=== PATIENT | female | born 1970 | race Caucasian/White ===

== ENCOUNTER 2017-04-11 05:32 | Inpatient (IN) | payer MEDICARE, MEDICAID ==
[2017-04-11] MEDS ORDERED: Scopolamine 1.5 MG Transdermal Patch TOP SCH (06:00)
[2017-04-11] MEDS ORDERED: Albuterol/Ipratropium 3.0-0.5 MG/3 ML Neb Soln NEB ONE (06:15)
[2017-04-11] MEDS: Dextrose 5%-Lactated Ringers 1,000 ML IV SCH ×4 (06:24→23:36)
[2017-04-11] MEDS ORDERED: methylPREDNISolone Sodium Succinate 125 MG/2 ML SDV IVPUSH ONE (06:30)
[2017-04-11] MEDS ORDERED: ceFAZolin 2 GM in Premix Bag 1 BAG IV ONE (06:30)
[2017-04-11] MEDS ORDERED: Gabapentin 300 MG Cap PO ONE (06:30)
[2017-04-11] MEDS ORDERED: Dexamethasone 4 MG/ML SDV ONE (07:02)
[2017-04-11] MEDS ORDERED: Propofol 200 MG/20 ML SDV ONE (07:02)
[2017-04-11] MEDS ORDERED: Midazolam 1 MG/ML 2 ML SDV ONE (07:02)
[2017-04-11] MEDS ORDERED: Ondansetron 4 MG/2 ML SDV ONE (07:02)
[2017-04-11] MEDS ORDERED: Succinylcholine/Normal Saline 200 MG/10 ML Syringe ONE (07:02)
[2017-04-11] MEDS ORDERED: Rocuronium 50 MG/5 ML Vial ONE (07:02)
[2017-04-11] MEDS ORDERED: fentaNYL 250 MCG/5 ML SDV ONE ×2 (07:02→08:19)
[2017-04-11] MEDS ORDERED: Neostigmine Methylsulfate 1 MG/ML 5 ML Syringe ONE (07:02)
[2017-04-11] MEDS ORDERED: Povidone-Iodine 10% Soln 118.25 ML Bottle ONE (07:09)
[2017-04-11] MEDS ORDERED: Lidocaine 1% 2 ML ONE (07:44)
[2017-04-11] MEDS ORDERED: HYDROmorphone/Normal Saline 15 MG/30 ML PCA IV PRN (07:52)
[2017-04-11] MEDS ORDERED: Naloxone 0.4 MG/ML SDV IVPUSH PRN (07:52)
[2017-04-11] MEDS ORDERED: Naloxone 0.4 MG/ML SDV IV PRN (07:56)
[2017-04-11] MEDS ORDERED: Labetalol 20 MG/4 ML Syringe ONE (08:18)
[2017-04-11] MEDS ORDERED: Albuterol 8 GM Inhaler INH PRN (11:07)
[2017-04-11] MEDS ORDERED: Ondansetron 4 MG/2 ML SDV IVPUSH PRN (11:07)
[2017-04-11] MEDS ORDERED: LORazepam 0.5 MG Tab PO PRN (11:08)
[2017-04-11] MEDS ORDERED: tiZANidine 4 MG Tab PO PRN (11:09)
[2017-04-11] MEDS: FLUoxetine 20 MG Cap PO SCH (13:40)
[2017-04-11] MEDS: Metoclopramide 10 MG/2 ML SDV IVPUSH SCH ×2 (13:40→21:49)
[2017-04-11] MEDS: methylPREDNISolone Sodium Succinate 125 MG/2 ML SDV IVPUSH SCH (17:01)
[2017-04-11] MEDS: Gabapentin 300 MG Cap PO SCH ×2 (17:55→21:47)
[2017-04-12] MEDS: methylPREDNISolone Sodium Succinate 125 MG/2 ML SDV IVPUSH SCH (05:31)
[2017-04-12] MEDS: Gabapentin 300 MG Cap PO SCH ×5 (05:31→21:24)
[2017-04-12] MEDS: Metoclopramide 10 MG/2 ML SDV IVPUSH SCH ×3 (05:31→21:24)
[2017-04-12] MEDS: Pantoprazole 40 MG Vial IVPUSH SCH (05:31)
[2017-04-12] MEDS: Dextrose 5%-Lactated Ringers 1,000 ML IV SCH (06:14)
[2017-04-12] MEDS ORDERED: HYDROmorphone 2 MG Tab PO PRN (08:44)
[2017-04-12] MEDS ORDERED: Ondansetron 4 MG Tab.DIS PO PRN (08:45)
[2017-04-12] MEDS ORDERED: Acetaminophen Soln 650 MG/20.3 ML UD Cup PO PRN (08:45)
[2017-04-12] MEDS: FLUoxetine 20 MG Cap PO SCH (09:05)
[2017-04-12] MEDS ORDERED: Dextrose 5%-Lactated Ringers 1,000 ML IV SCH (12:00)
--- NOTE | 2017-04-12 20:30 | PN ---
DATE OF SERVICE: 04/12/2017 SUBJECTIVE: Irasema is postop day 1 following a lap Samson. Her pain is controlled. She has been up walking twice. Vital signs were stable. She has no questions or concerns. OBJECTIVE: GENERAL: Irasema Landaverde is a 46-year-old female. VITAL SIGNS: TPR is 98.7, 75, 16, blood pressure 125/59. HEENT: Negative. NECK: Supple. HEART: Regular rate and rhythm. LUNGS: Clear. ABDOMEN: Dressings dry and intact. Abdominal binder is on. EXTREMITIES: Without peripheral edema. ASSESSMENT: Laparoscopic Samson fundoplication. Date of surgery 04/11/2017. PLAN: 1. Clear liquid diet for breakfast. 2. Advance to full liquid diet at lunch if tolerating clear liquid diet. 3. Saline lock if oral intake adequate. 4. Discontinue [employer] and continuous pulse ox. 5. Dilaudid 2 mg 1 to 2 every 4 hours p.r.n. pain. 6. Tylenol 650 mg liquid or chewable q.4 hours p.r.n. lesser pain. 7. Dietary consult. 8. Dressing off, may shower. 9. Zofran 4 mg ODT q.4 hours p.r.n. nausea. 10.Good pulmonary toilet encouraged. 11.We will evaluate p.r.n. or in a.m. Rebeca Santiago PA-C /[id number]
[2017-04-13] MEDS: Pantoprazole 40 MG Vial IVPUSH SCH (05:43)
[2017-04-13] MEDS: Gabapentin 300 MG Cap PO SCH (05:43)
[2017-04-13] MEDS: Metoclopramide 10 MG/2 ML SDV IVPUSH SCH (05:43)
[2017-04-13 07:21] VITALS: BP 118/57
[2017-04-13] MEDS: FLUoxetine 20 MG Cap PO SCH (08:28)
--- NOTE | 2017-04-14 01:24 | DISCH ---
PRIMARY CARE PHYSICIAN: MARY Michel. ADMISSION DIAGNOSES: 1. Gastroesophageal reflux disease refractory to medical management. 2. Anxiety and depression. 3. Bipolar type II. 4. Fibromyalgia. 5. Chronic shortness of breath/cough with long-term tobacco use. DISCHARGE DIAGNOSIS: Laparoscopic Samson fundoplication with repair of paraesophageal hernia with mesh and excision of mediastinal lipoma for gastroesophageal reflux disease associated with paraesophageal diaphragmatic hernia, and mediastinal lipoma. Date of surgery 04/11/2017. HISTORY: Irasema Landaverde is a 46-year-old female with longstanding history of GERD refractory to medical management. After preoperative evaluation and discussion of possible risks and possible complications, she wished to proceed with surgical procedure. HOSPITAL COURSE: Irasema had her surgery on 04/11/2017. She had no operative complications. On postop day #1, she was started on a clear liquid diet, advanced to full liquid diet, and changed over to oral pain medication. On postop day #2, her activity was good. She received dietary education. Her pain was well managed and vital signs were stable, and she was able to be discharged to home. PHYSICAL EXAMINATION: GENERAL: Irasema Landaverde is a pleasant 46-year-old female. She is alert and orientated. SKIN: Warm and dry. Color is good. VITAL SIGNS: Height is 5 feet 2 inches. Weight is 159 pounds. TPR is 98, 77, 16, and blood pressure is 118/57. HEENT: Negative. NECK: Supple. HEART: Regular rate and rhythm. LUNGS: Clear. ABDOMEN: Incisions look good. Abdominal binder has been on. EXTREMITIES: Without peripheral edema. DISPOSITION: Discharged to home. CONDITION: Stable and improving. FOLLOWUP APPOINTMENT: With Rebeca Santiago PA-C, on 04/19/2017 at 09:30 a.m. MEDICATIONS: Home medications: Dilaudid 2 mg 1 to 2 every 4 hours p.r.n. pain #30, Zofran ODT 4 mg q.4 hours p.r.n. nausea #30. She is to resume taking her home medications of Tylenol 650 mg every 4 hours, ProAir inhaler 2 puffs 4 times a day, vitamin D3 at 2000 International Units daily, Prozac 20 mg oral daily, Diflucan 150 mg oral as directed, and Neurontin 600 mg 4 times a day. She is to discontinue taking ibuprofen. DIET: After discharge, drink 8 to 10 glasses of water a day. Full liquid diet for 2 weeks. ACTIVITY: After discharge, as tolerated. No lifting greater than 10 pounds for 2 weeks. DISCHARGE INSTRUCTIONS: Driving after discharge, do not drive while on pain medication. Notify provider if any fever, increased pain, nausea, or vomiting. Wound incision care, keep site clean and dry. Wear abdominal binder for 2 weeks, and then as tolerated. Use incentive spirometer 10 times every hour while awake.
--- NOTE | 2017-04-16 13:46 | OR ---
DATE OF PROCEDURE: 04/11/2017 PREOPERATIVE DIAGNOSIS: Gastroesophageal reflux disease, refractory to medical management. POSTOPERATIVE DIAGNOSES: 1. Gastroesophageal reflux disease, refractory to medical management with a paraesophageal diaphragmatic hernia. 2. Mediastinal lipoma. OPERATIVE PROCEDURE: Diagnostic laparoscopy with, 1. Laparoscopic Samson fundoplication with repair of paraesophageal diaphragmatic hernia with mesh (96708). 2. Excision of mediastinal lipoma (22093). ANESTHESIA: General. INDICATIONS FOR PROCEDURE: This is a 46-year-old female presenting with longstanding gastroesophageal reflux disease that is progressively worsening and become refractory to medical management. After preoperative evaluation and discussion, she wished to proceed with a Samson fundoplication. Potential risks including bleeding, infection, injury to the viscera in the area of possible complications related to fundoplication such as persistent dysphagia, disorders of gastric emptying rate, gas-bloat syndrome as well as possible incomplete relief of reflux symptoms were all reviewed, and the patient wishes to proceed. DESCRIPTION OF PROCEDURE: The patient was taken to the operating room and after general endotracheal anesthesia was induced, was placed in a lithotomy position. Perez catheter was inserted and the abdomen prepped and draped. At 15 cm inferior, 5 cm left of xiphoid process, transverse incision was made and peritoneal cavity entered under direct vision with an Optiview trocar and inflated to 15 mmHg pressure with CO2. Laparoscope was then reinserted. No underlying trocar insertion site injuries were seen. Following this, 4 additional trocars were placed across the upper and mid abdomen and general exploration was undertaken. Upon elevation of liver, the patient was noted to have a fairly large hiatal hernia. A major component of this was paraesophageal in nature with prolapse of the gastric fundus, some perigastric fat as well as the tongue of omentum in the plane anterior to the course of the esophagus. The hernia was reduced at this point and the peritoneum at the esophagogastric junction divided first on the right, then anterior, then to the left of the EG junction. This allowed separation of the esophagus from the crura on each side and the retroesophageal window was created. Hao drain was placed around the area and then dissection was continued loosening up the attachments of the esophagus until an intra- abdominal esophageal length of around 4 to 5 cm was achieved. During the course of the dissection, the mediastinal lipoma was encountered posterior to the esophagus. This was dissected free and sent as a separate specimen. The crural repair was then accomplished with a series of 0 Ethibond sutures reinforced with PTFE pledgets. The size of the hiatal hernia allowed us to place a Phasix mesh. This was consequently laid across the crural repair posteriorly along the sides of the esophagus at the edge of the diaphragm. The mesh was then fixed in place with some titanium tacking screws. At this point, the omentum was divided away from the mid greater curvature of the stomach with Harmonic scalpel. This dissection then continued superiorly and the more proximal omentum from the stomach and then the short gastric vessels including the highest and posterior short gastric vessels. This resulted in a very nicely mobile fundus. The latter was retrieved through the retroesophageal window. The hand scudder then placed a guidewire orally through the esophagus and into the stomach, and over this, a 54-[place] Savary dilator was placed. A 3-stitch 2-cm fundoplication was then accomplished with 0 Ethibond sutures reinforced with PTFE pledgets. Each of these included bites of the esophagus fixed in position, and following this, 2 additional stitches between the right and left sides of the fundoplication to the overlying diaphragm with the same stitch pledget combination were placed to help maintain the fundoplication in appropriate position. At this point, no further problems were noted. Trocars were removed and the peritoneal cavity deflated. The fascia at the 12-mm site was closed with 0 Vicryl stitch and the skin at each incision with 5-0 Vicryl skin stitch. Dressing was applied. The patient was taken to the recovery room in satisfactory condition. Martir Bang MD /[id number]
== END 2017-04-13 09:50 | disposition home or self-care (01) | DRG 327 ==
LOC: JP.MS 05:32 → JP.SDS 05:32 → EDSTATUS 09:15 → JP.2SS 10:30
PROVIDERS: ADMIT Surgery; ATTEND Surgery
PROC: 0WBC4ZX Excision of Mediastinum, Percutaneous Endoscopic Approach, Diagnostic (ICD-10-PCS; principal; 2017-04-11)
PROC: 0DV44ZZ Restriction of Esophagogastric Junction, Percutaneous Endoscopic Approach (ICD-10-PCS; principal; 2017-04-11)
PROC: 0BUR4JZ (ICD-10-PCS; principal; 2017-04-11)
PROC: 0BUS4JZ (ICD-10-PCS; principal; 2017-04-11)
DX: K21.9 Gastro-esophageal reflux disease without esophagitis (principal); F31.81 Bipolar II disorder; D17.4 Benign lipomatous neoplasm of intrathoracic organs; K44.9 Diaphragmatic hernia without obstruction or gangrene; M79.7 Fibromyalgia; F41.9 Anxiety disorder, unspecified; F17.210 Nicotine dependence, cigarettes, uncomplicated; Z91.040 Latex allergy status; Z88.2 Allergy status to sulfonamides; Z88.8 Allergy status to other drugs, medicaments and biological substances
CPT/HCPCS: 88304; 94762; A9270-GY; C1781; C9113; J0690; J1100; J1170; J2250; J2405; J2704; J2765; J2930; J3010; J7042; J7620

== ENCOUNTER 2017-05-18 08:51 | Day surgery (SDC) | payer MEDICARE, MEDICAID ==
[2017-05-18] MEDS ORDERED: Lactated Ringers 1,000 ML IV SCH (09:45)
[2017-05-18] MEDS ORDERED: Glycopyrrolate 0.2 MG/ML 2 ML SYRINGE IVPUSH ONE (10:00)
[2017-05-18] MEDS ORDERED: Cyanocobalamin (Vitamin B12) 1,000 MCG/ML SDV IM ONE (10:00)
[2017-05-18] MEDS ORDERED: Propofol 200 MG/20 ML SDV ONE (10:20)
[2017-05-18] MEDS ORDERED: fentaNYL 100 MCG/2 ML SDV ONE (10:20)
[2017-05-18] MEDS ORDERED: Midazolam 1 MG/ML 2 ML SDV ONE (10:20)
[2017-05-18] MEDS ORDERED: MVI, Adult with Vitamin K 10 ML, Thiamine 200 MG, Chromium/Copper/Mang/Selen/Zn 1 ML in... IV ONE ×4 (10:45)
[2017-05-18 12:34] VITALS: BP 138/82
--- NOTE | 2017-05-19 03:09 | OR ---
DATE OF PROCEDURE: 05/18/2017 PREOPERATIVE DIAGNOSIS: Dysphagia, status post Samson fundoplication. POSTOPERATIVE DIAGNOSIS: Dysphagia, status post Samson fundoplication, otherwise normal- appearing post Samson fundoplication and endoscopy. OPERATIVE PROCEDURE: Upper GI endoscopy with esophageal dilation (81141). ANESTHESIA: IV sedation. INDICATION FOR PROCEDURE: This is a 46-year-old status post a Samson fundoplication on 04/11/2017 presenting with some persistent dysphagia. Plan is to proceed with upper GI endoscopy with dilation of the esophagus as indicated. Potential risks including bleeding and perforation were discussed, and the patient wishes to proceed. DETAILS OF PROCEDURE: The patient was taken to the operating room and placed in a left lateral decubitus position. IV sedation was administered, after which the upper GI endoscope was passed orally through the length of the esophagus through the area of the esophagogastric junction into the stomach and proximal duodenum. Findings included known esophageal dilation. The patient had an intact Samson effect with the scope in the distal esophagus. The area opened up easily and the scope easily passed through that area. There did not appear to be any overt stricturing per se. Retroflexion confirmed adequate appearance of the fundoplication from that vantage point. The remainder of the gastric and duodenal exams were unremarkable. At this point, it was felt that we will empirically dilate this fundoplication to see if that might facilitate resolution of the dysphagia. Guidewire was then placed in the stomach and gastroscope removed. First, a 54-[place] Savary dilator was placed under fluoroscopic surveillance and this was met with normal moderate resistance. Given this, a 60-[place] dilator was then placed next and then held in position for 1 minute, after the dilator and wire were removed. The patient was then taken to the recovery room in satisfactory condition. We will see the patient back on 05/31/2017 to see how we are doing symptomatically at that point. Martir Bang MD /[id number]
== END 2017-05-18 13:08 | disposition home or self-care (01) ==
LOC: JP.SDS 08:51
PROVIDERS: ATTEND Surgery
DX: R13.10 Dysphagia, unspecified (principal); Z91.040 Latex allergy status; K21.9 Gastro-esophageal reflux disease without esophagitis; F41.9 Anxiety disorder, unspecified; F32.9 Major depressive disorder, single episode, unspecified; G47.33 Obstructive sleep apnea (adult) (pediatric); J44.9 Chronic obstructive pulmonary disease, unspecified; F31.9 Bipolar disorder, unspecified; F17.200 Nicotine dependence, unspecified, uncomplicated; Z88.2 Allergy status to sulfonamides; Z98.890 Other specified postprocedural states; Z88.8 Allergy status to other drugs, medicaments and biological substances
CPT/HCPCS: 43248; J2250; J2704; J3010; J3411; J3420; J7120

== ENCOUNTER 2017-06-05 12:30 | Inpatient (IN) | payer MEDICARE, MEDICAID ==
[2017-06-06] MEDS ORDERED: Ondansetron 4 MG/2 ML SDV ONE (07:17)
[2017-06-06] MEDS ORDERED: Succinylcholine/Normal Saline 200 MG/10 ML Syringe ONE (07:17)
[2017-06-06] MEDS ORDERED: Propofol 200 MG/20 ML SDV ONE (07:17)
[2017-06-06] MEDS ORDERED: Neostigmine Methylsulfate 1 MG/ML 5 ML Syringe ONE (07:17)
[2017-06-06] MEDS ORDERED: Rocuronium 50 MG/5 ML Vial ONE (07:17)
[2017-06-06] MEDS ORDERED: Dexamethasone 4 MG/ML SDV ONE (07:17)
[2017-06-06] MEDS ORDERED: fentaNYL 250 MCG/5 ML SDV ONE ×2 (07:17→10:21)
[2017-06-06] MEDS ORDERED: Midazolam 1 MG/ML 2 ML SDV ONE (07:18)
[2017-06-06] MEDS ORDERED: Dextrose 5%-Lactated Ringers 1,000 ML IV SCH (07:45)
[2017-06-06] MEDS ORDERED: Albuterol/Ipratropium 3.0-0.5 MG/3 ML Neb Soln NEB ONE ×2 (07:45→11:30)
[2017-06-06] MEDS ORDERED: cefOXitin 2 GM in Sodium Chloride 0.9% 50 ML IV ONE (07:45)
[2017-06-06] MEDS ORDERED: Povidone-Iodine 10% Soln 118.25 ML Bottle ONE (08:58)
[2017-06-06] MEDS ORDERED: Lactated Ringers 1,000 ML ONE (11:00)
[2017-06-06] MEDS ORDERED: Naloxone 0.4 MG/ML SDV IVPUSH PRN (11:04)
[2017-06-06] MEDS ORDERED: HYDROmorphone/Normal Saline 15 MG/30 ML PCA IV PRN (11:04)
[2017-06-06] MEDS ORDERED: Naloxone 0.4 MG/ML SDV IV PRN (12:39)
[2017-06-06] MEDS ORDERED: Ondansetron 4 MG/2 ML SDV IVPUSH PRN (12:39)
[2017-06-06] MEDS ORDERED: tiZANidine 4 MG Tab PO PRN (12:40)
[2017-06-06] MEDS ORDERED: Albuterol/Ipratropium 3.0-0.5 MG/3 ML Neb Soln INH PRN (12:41)
[2017-06-06] MEDS ORDERED: Pantoprazole 40 MG Vial IV SCH (14:00)
[2017-06-06] MEDS: Albuterol/Ipratropium 3.0-0.5 MG/3 ML Neb Soln INH SCH ×2 (14:22→21:33)
[2017-06-06] MEDS: Metoclopramide 10 MG/2 ML SDV IVPUSH SCH ×2 (14:45→21:33)
[2017-06-06] MEDS: Gabapentin 300 MG Cap PO SCH ×3 (15:04→21:53)
[2017-06-06] MEDS: Dextrose 5%-Lactated Ringers 1,000 ML IV SCH ×2 (16:34→21:59)
[2017-06-06] MEDS: ceFAZolin 2 GM in Sodium Chloride 0.9% 50 ML IV SCH (16:37)
[2017-06-06] MEDS: Formoterol/Mometasone 200-5 MCG 8.8 GM Inhaler IH SCH (21:38)
[2017-06-07] MEDS: ceFAZolin 2 GM in Sodium Chloride 0.9% 50 ML IV SCH ×2 (00:29→09:06)
[2017-06-07] MEDS: Dextrose 5%-Lactated Ringers 1,000 ML IV SCH (04:23)
[2017-06-07] MEDS: Metoclopramide 10 MG/2 ML SDV IVPUSH SCH (06:27)
[2017-06-07] MEDS: Gabapentin 300 MG Cap PO SCH ×2 (06:30→09:14)
[2017-06-07] MEDS: Formoterol/Mometasone 200-5 MCG 8.8 GM Inhaler IH SCH (07:13)
[2017-06-07] MEDS: Albuterol/Ipratropium 3.0-0.5 MG/3 ML Neb Soln INH SCH (07:13)
[2017-06-07] MEDS ORDERED: FLUoxetine 20 MG Cap PO SCH (09:00)
[2017-06-07] MEDS ORDERED: Propranolol 80 MG Cap.ER PO SCH (09:00)
[2017-06-07 09:10] VITALS: BP 125/73
--- NOTE | 2017-06-08 10:29 | DISCH ---
ADMISSION DIAGNOSES: Dysphagia, status post laparoscopic Samson fundoplication, sleep apnea, bipolar disorder, fibromyalgia, tobacco abuse, and degeneration of lumbar intervertebral disk. DISCHARGE DIAGNOSES: Diagnostic laparoscopy with lysis of adhesions, conversion full to partial fundoplication, partial gastrectomy and repair of paraesophageal diaphragmatic hernia for persistent dysphagia, status post Samson fundoplication, devascularization portion of the stomach, takedown of Samson fundoplication on 06/06/2014. HISTORY: Irasema Landaverde had a Samson fundoplication with persistent dysphagia. After preoperative evaluation and discussion of possible risks and possible complications, she wished to proceed with surgical procedure. HOSPITAL COURSE: Irasema had her surgery on 06/06/2017. She had no operative complications. On postop day #1, her activity was good. She tolerated a diet well, her pain was controlled, and she was able to be discharged to home. PHYSICAL EXAMINATION: GENERAL: Irasema Landaverde is a 46-year-old female. VITAL SIGNS: Height is 5 feet 4 inches. Weight is 140 pounds. TPR 98.5, 59, 16, and blood pressure 108/56. HEENT: Negative. NECK: Supple. HEART: Regular rate and rhythm. LUNGS: Clear. ABDOMEN: Dressings dry and intact. Abdominal binder is on. EXTREMITIES: Without peripheral edema. DISPOSITION: Discharged to home. CONDITION: Stable and improving. FOLLOWUP: With Martir Bang MD, at [facility] on 06/14/2017 at 8:30 a.m. DISCHARGE MEDICATIONS: Home medications; Dilaudid 2 mg one q.4 hours p.r.n. pain, #30. She is to resume all of her home medications. DISCHARGE DIET: Full liquid diet for 2 weeks. ACTIVITY: As tolerated. No lifting greater than 10 pounds for 2 weeks. Driving, do not drive while on pain medication. May shower. DISCHARGE MEDICATIONS: Notify provider if any fever, increased pain, nausea, or vomiting. Wound, keep site clean and dry. Wear abdominal binder for 2 weeks and then as tolerated. Special instructions, use incentive spirometer 10 times every hour while awake.
--- NOTE | 2017-06-12 12:52 | OR ---
DATE OF PROCEDURE: 06/06/2017 PREOPERATIVE DIAGNOSIS: Persistent dysphagia, status post Samson fundoplication. POSTOPERATIVE DIAGNOSES: 1. Persistent dysphagia, status post Samson fundoplication. 2. Avascularization of portion of stomach, status post takedown of Samson fundoplication. OPERATIVE PROCEDURES: Diagnostic laparoscopy with lysis of adhesions; 1. Conversion of full to partial fundoplication with re-repair of paraesophageal hernia (83640). 2. Partial gastrectomy (37890). ANESTHESIA: General. INDICATION FOR PROCEDURE: A 46-year-old status post repair of paraesophageal hernia with Samson fundoplication in March. She has had persistent problems with dysphagia and dilation of the esophagus done a little over a week ago. It did not result in significant improvement in symptoms. The patient had significant weight loss, and given this at this time to undergo conversion of the full to partial fundoplication. Potential risks of the procedure including bleeding, infection, possible problems with persistent dysphasia and/or recurrent reflux disease as well as possible injury to the viscera in the area, and lastly, the possibility of cardiopulmonary, septic, or hemorrhagic complications leading to were discussed, and the patient wishes to proceed. DETAILS OF PROCEDURE: The patient was taken to the operating room and placed in a supine position. After general endotracheal anesthesia was induced, she was converted to a lithotomy position and a Perez catheter was inserted and the abdomen prepped and draped. In the area just adjacent to the previous camera port incision, roughly 15 cm inferior to the xiphoid and the distal left of midline, the peritoneal cavity was entered under direct vision with an Optiview trocar and inflated to 15 mmHg pressure of CO2. Approximately 4 additional trocars were placed across the upper mid abdomen and general exploration was undertaken. There were some adhesions between the omentum and the anterior abdominal wall. These were taken down with Harmonic scalpel. The dissection then continued underneath the left lobe of the liver where some adhesions of the fundoplication and liver were recovered. The patient was noted to have a quite exaggerated inflammatory response in this area possibly related to the pledgets used for the fundoplication, and eventually, the anterior aspect of fundoplication was freed up to the level of the diaphragm. As this was dissected away from the diaphragm, there was a significant recurrent component of the diaphragmatic hernia created. The stomach was then divided at the point where it had been sutured anteriorly to the fundus as it had been pulled posterior and to the right of the esophagus. This was done with a OLY russo load. The stomach was then further dissected free using a combination of Harmonic scalpel and blunt dissection to the point where a quarter of the esophagus was freed up of the fundoplication on its anterior aspect. This stomach at this point appeared to be quite devascularized and was then resected with a OLY purple load. Gastric specimen was then delivered from the field. At this point, the diaphragmatic hernia was re-repaired with a series of 0 Ethibond sutures reinforced with PTFE pledgets and at that point, no further problems noted. The underlying esophagus was visualized to be nicely intact, and at that point, the trocars were removed. The 12 mm sites were closed with 0 Vicryl stitch and the skin with a 4-0 Vicryl skin stitch. Dressing was applied. The patient was taken to the recovery room in satisfactory condition. Martir Bang MD /[id number]
== END 2017-06-07 11:10 | disposition home or self-care (01) | DRG 328 ==
LOC: JP.SDS 06-06 07:24 → JP.SDSSCHI 06-06 07:24 → EDSTATUS 06-06 10:00 → JP.2SS 06-06 11:15
PROVIDERS: ADMIT Surgery; ATTEND Surgery
PROC: 0DV40ZZ Restriction of Esophagogastric Junction, Open Approach (ICD-10-PCS; principal; 2017-06-06)
PROC: 0BQS0ZZ (ICD-10-PCS; 2017-06-06)
PROC: 0BQR0ZZ (ICD-10-PCS; 2017-06-06)
PROC: 0DB60ZZ Excision of Stomach, Open Approach (ICD-10-PCS; 2017-06-06)
DX: R13.10 Dysphagia, unspecified (principal); K44.9 Diaphragmatic hernia without obstruction or gangrene; G47.30 Sleep apnea, unspecified; F31.9 Bipolar disorder, unspecified; M79.7 Fibromyalgia; F17.200 Nicotine dependence, unspecified, uncomplicated; M51.36 Other intervertebral disc degeneration, lumbar region
CPT/HCPCS: 36415; 80053; 83735; 84100; 85027; 88305; 94640; 94640-76; 94762; A9270-GY; C9113; J0690; J0694; J1100; J1170; J2250; J2405; J2704; J2765; J3010; J7042; J7050; J7120; J7620

== ENCOUNTER 2017-06-28 01:08 | Emergency (ER) | payer MEDICARE, MEDICAID ==
[2017-06-28 01:34] VITALS: BP 109/80
[2017-06-28] MEDS ORDERED: Ketorolac 60 MG/2 ML SDV IM ONE (01:42)
--- NOTE | 2017-06-28 02:37 | EDM.PDOC ---
ED HPI GENERAL MEDICAL PROBLEM - General Chief Complaint: Back Pain or Injury Stated Complaint: BACK PAIN/SWOLLEN LEGS Time Seen by Provider: 06/28/17 01:42 Source of Information: Reports: Patient History Limitations: Reports: No Limitations - History of Present Illness INITIAL COMMENTS - FREE TEXT/NARRATIVE: History of present illness: [38-year-old female presenting complaining of low back pain with radiation down her right leg. Something going on for a week but on further questioning I think this is been an ongoing problem longer than that. She has a history of anxiety and fibromyalgia tenderness noted that she is on Dilaudid by mouth. She apparently walked all around the hospital block before coming in complaining of this pain. She apparently had a bad experience with physical therapy about a year ago and expressed a lot of animosity towards physical therapy and questioning her about her history of pain. She has an appointment to see her primary on the eighth for this problem. She's had no fevers or chills or weakness of her lower extremities no dysuria no constipation or diarrhea.] Review of systems: As per history of present illness and below otherwise all systems reviewed and negative. Past medical history: As per history of present illness and as reviewed below otherwise noncontributory. Surgical history: As per history of present illness and as reviewed below otherwise noncontributory. Social history: No reported history of drug or alcohol abuse. Family history: As per history of present illness and as reviewed below otherwise noncontributory. Physical exam: Gen.: She appears anxious and irritable. She complains of 10 out of 10 pain even though she lies in bed and is using her phone playing a game or taxing someone and appears comfortable. HEENT: Atraumatic, normocephalic, pupils reactive, negative for conjunctival pallor or scleral icterus, mucous membranes moist, throat clear, neck supple, nontender, trachea midline. Lungs: Clear to auscultation, breath sounds equal bilaterally, chest nontender. Heart: S1S2, regular, negative for clicks, rubs, or JVD. Abdomen: Soft, nondistended, nontender. Negative for masses or hepatosplenomegaly. Negative for costovertebral tenderness. Pelvis: Stable nontender. Genitourinary: Deferred. Rectal: Deferred. Extremities: Atraumatic, negative for cords or calf pain. Neurovascular unremarkable. Neuro: Awake, alert, oriented. Cranial nerves II through XII unremarkable. Cerebellum unremarkable. Motor and sensory unremarkable throughout. Exam nonfocal. Back: Her pain localizes to the right SI joint and also some diffuse nonspecific pain of the right lumbar area. She seems to have a hyper response to any palpation of this area. Diagnostics: [] Therapeutics: [Toradol 30 mg was given IM] Impression: [Right low back lumbar pain possible SI joint pain] Plan: [I'm advising her to follow-up in the clinic and if she can't get in to see her primary she can space seen in urgent care. I think there is an element of anxiety and fibromyalgia in her presentation.] Definitive disposition and diagnosis as appropriate pending reevaluation and review of above. back pain Pain Score (Numeric/FACES): 10 - Related Data Allergies Allergy/AdvReac Type Severity Reaction Status Date / Time latex Allergy Hives Verified 06/28/17 01:24 Sulfa (Sulfonamide Allergy Rash Verified 06/28/17 01:24 Antibiotics) topiramate [From Topamax] Allergy Cannot Verified 06/28/17 01:24 Remember Home Meds: Home Meds Multivitamin [Multivitamins] 1 tab PO DAILY 09/22/15 [History] Albuterol Sulfate [Proair Respiclick] 2 puff IH QID PRN 10/05/15 [History] Cholecalciferol (Vitamin D3) [Vitamin D3] 2,000 unit PO DAILY 10/05/15 [History] tiZANidine HCl [Zanaflex] 4 - 8 mg PO BEDTIME 10/05/15 [History] FLUoxetine [PROzac] 20 mg PO DAILY 12/23/16 [History] Gabapentin [Neurontin] 600 mg PO QID PRN 12/23/16 [History] LORazepam [Ativan] 0.5 mg PO ASDIRECTED PRN 12/23/16 [History] Omeprazole 40 mg PO BIDAC 04/10/17 [History] Ondansetron [Zofran ODT] 4 mg PO Q4H PRN #30 tab.dis 04/13/17 [Rx] HYDROmorphone [Dilaudid] 2 mg PO Q4H PRN #30 tablet 06/07/17 [Rx] Past Medical History HEENT History: Reports: Macular Degeneration, Retinal Detachment, Sinusitis Cardiovascular History: Reports: High Cholesterol Other Cardiovascular History: Carotid artery blockage. 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 Musculoskeletal History: Reports: Arthritis, Back Pain, Chronic, Fibromyalgia, Neck Pain, Chronic, Osteoarthritis, Other (See Below) Other Musculoskeletal History: neuropathy Neurological History: Reports: Concussion, Headaches, Chronic, Head Trauma, Migraines, Neuropathy, Peripheral, Vertigo Other Neuro History: lymes hx Psychiatric History: Reports: Anxiety, Bipolar, Dementia, Depression, Emotional Problems, Learning Disability, Panic Attack, PTSD Endocrine/Metabolic History: Reports: None Hematologic History: Reports: None Immunologic History: Reports: None Oncologic (Cancer) History: Reports: Cervix Dermatologic History: Reports: None - Infectious Disease History Infectious Disease History: Reports: Chicken Pox, Measles - Past Surgical History Head Surgeries/Procedures: Reports: None HEENT Surgical History: Reports: Tonsillectomy Other HEENT Surgeries/Procedures: "tonsils grew back" Cardiovascular Surgical History: Reports: None Respiratory Surgical History: Reports: None GI Surgical History: Reports: EGD, Samson Fundoplication Female Surgical History: Reports: Section, Hysterectomy, Salpingo- Oophorectomy Neurological Surgical History: Reports: None Musculoskeletal Surgical History: Reports: Other (See Below) Other Musculoskeletal Surgeries/Procedures:: Elbow surgery Oncologic Surgical History: Reports: Other (See Below) Other Oncologic Surgeries/Procedures: Hysterectomy Dermatological Surgical History: Reports: None Social & Family History - Family History Family Medical History: Noncontributory - Tobacco Use Smoking Status *Q: Current Every Day Smoker Years of Tobacco use: 38 Packs/Tins Daily: 0.5 Used Tobacco, but Quit: No Month Tobacco Last Used: april Second Hand Smoke Exposure: No - Caffeine Use Caffeine Use: Reports: None - Alcohol Use Days Per Week of Alcohol Use: 0 Number of Drinks Per Day: 0 Total Drinks Per Week: 0 - Recreational Drug Use Recreational Drug Use: Yes Drug Use in Last 12 Months: Yes Recreational Drug Type: Reports: Marijuana/Hashish Recreational Drug Use Frequency: Socially Recreational Drug Last Use: MONDAY ED ROS GENERAL - Review of Systems Review Of Systems: ROS reveals no pertinent complaints other than HPI. ED EXAM,LOWER BACK PAIN/INJURY - Physical Exam Exam: See Below Course - Vital Signs Last Recorded V/S: Last Vital Signs Temp 36.3 C 06/28/17 01:32 Pulse 75 06/28/17 01:32 Resp 16 06/28/17 01:32 BP 109/80 06/28/17 01:32 Pulse Ox 98 06/28/17 01:32 - Orders/Labs/Meds Meds: Medications Discontinued Medications Generic Name Dose Route Start Last Admin Trade Name Fletcher PRN Reason Stop Dose Admin Ketorolac Tromethamine 30 mg 06/28/17 01:42 06/28/17 01:52 Toradol IM 06/28/17 01:43 30 mg ONETIME ONE Administration Departure - Departure Time of Disposition: 02:36 Disposition: Home, Self-Care 01 Condition: Good Clinical Impression: Low back pain Qualifiers: Chronicity: unspecified Back pain laterality: right Sciatica presence: unspecified whether sciatica present Qualified Code(s): M54.5 - Low back pain - Discharge Information Forms: ED Department Discharge Additional Instructions: Please try to a into the clinic to be evaluated for your pain. Even though he had a bad experience with physical therapy and think it might be worthwhile trying physical therapy again. Sometimes chiropractors can help with this kind of pain as well.
== END 2017-06-28 02:55 | disposition home or self-care (01) ==
LOC: JP.ED 01:08
DX: M54.5 Low back pain (principal); E78.00 Pure hypercholesterolemia, unspecified; J45.909 Unspecified asthma, uncomplicated; J44.9 Chronic obstructive pulmonary disease, unspecified; K21.9 Gastro-esophageal reflux disease without esophagitis; M19.90 Unspecified osteoarthritis, unspecified site; G43.909 Migraine, unspecified, not intractable, without status migrainosus; F41.0 Panic disorder [episodic paroxysmal anxiety]; F32.9 Major depressive disorder, single episode, unspecified; F17.210 Nicotine dependence, cigarettes, uncomplicated; F43.10 Post-traumatic stress disorder, unspecified; Z85.41 Personal history of malignant neoplasm of cervix uteri; Z87.01 Personal history of pneumonia (recurrent); Z98.890 Other specified postprocedural states; Z90.710 Acquired absence of both cervix and uterus; Z79.899 Other long term (current) drug therapy; Z91.040 Latex allergy status; Z88.2 Allergy status to sulfonamides; Z88.8 Allergy status to other drugs, medicaments and biological substances
CPT/HCPCS: 96372; 99283; J1885

== ENCOUNTER 2018-07-14 23:40 | Emergency (ER) | payer MEDICARE, MEDICAID ==
[2018-07-15 00:37] VITALS: BP 118/67
[2018-07-15] MEDS ORDERED: HYDROmorphone 0.5 MG/0.5 ML Syringe IM ONE (01:34)
[2018-07-15] MEDS ORDERED: cefTRIAXone 1 GM, Lidocaine 1% 2.1 ML IM ONE ×2 (01:34)
[2018-07-15] MEDS ORDERED: Ibuprofen 600 MG Tab PO ONE (01:35)
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
[2018-07-18 11:13] LABS: LYME IGG/IGM AB <0.91 ISR (0.00-0.90)
== END 2018-07-15 02:07 | disposition home or self-care (01) ==
LOC: JP.ED 23:40
DX: M19.012 Primary osteoarthritis, left shoulder (principal); L03.312 Cellulitis of back [any part except buttock and flank]; J44.9 Chronic obstructive pulmonary disease, unspecified; F17.210 Nicotine dependence, cigarettes, uncomplicated; Z91.040 Latex allergy status; Z88.2 Allergy status to sulfonamides; Z88.8 Allergy status to other drugs, medicaments and biological substances; Z79.899 Other long term (current) drug therapy
CPT/HCPCS: 36415; 85025; 86140; 96372; 99284; A9270; J0696; J1170; 86618

== ENCOUNTER 2018-12-06 05:28 | Inpatient (IN) | payer MEDICARE, MEDICAID ==
[2018-12-06] MEDS ORDERED: Dextrose 5%-Lactated Ringers 1,000 ML IV SCH (05:45)
[2018-12-06] MEDS ORDERED: Acetaminophen 500 MG Tab PO ONE (05:45)
[2018-12-06] MEDS ORDERED: Albuterol/Ipratropium 3.0-0.5 MG/3 ML Neb Soln NEB ONE (06:30)
[2018-12-06] MEDS ORDERED: Meropenem 500 MG SDV ONE (06:35)
[2018-12-06] MEDS ORDERED: Naloxone 0.4 MG/ML SDV IVPUSH PRN (07:06)
[2018-12-06] MEDS ORDERED: HYDROmorphone/Normal Saline 15 MG/30 ML PCA IV PRN (07:06)
[2018-12-06] MEDS ORDERED: fentaNYL 250 MCG/5 ML SDV ONE (07:08)
[2018-12-06] MEDS ORDERED: Propofol 200 MG/20 ML SDV ONE (07:09)
[2018-12-06] MEDS ORDERED: Dexamethasone 4 MG/ML SDV ONE (07:09)
[2018-12-06] MEDS ORDERED: Ondansetron 4 MG/2 ML SDV ONE (07:09)
[2018-12-06] MEDS ORDERED: Rocuronium 50 MG/5 ML Vial ONE (07:09)
[2018-12-06] MEDS ORDERED: Neostigmine Methylsulfate 1 MG/ML 5 ML Syringe ONE (07:09)
[2018-12-06] MEDS ORDERED: Glycopyrrolate 0.2 MG/ML 5 ML MDV ONE (07:09)
[2018-12-06] MEDS ORDERED: ePHEDrine 50 MG/ML SDV ONE (07:35)
[2018-12-06] MEDS: ceFAZolin 2 GM in Premix Bag 1 BAG IV ONE ×2 (07:45→14:15)
[2018-12-06] MEDS ORDERED: Ropivacaine 30 ML, Dexamethasone 8 MG, EPINEPHrine 0.4 MG, Sodium Chloride 0.9% 47.6 ML NERVRT SCH ×4 (08:00)
[2018-12-06] MEDS ORDERED: Ketamine 500 MG/5 ML MDV IV SCH (08:00)
[2018-12-06] MEDS ORDERED: Ondansetron 4 MG/2 ML SDV IVPUSH PRN (10:28)
[2018-12-06] MEDS ORDERED: hydrOXYzine HCl 100 MG/2 ML SDV IM PRN (10:29)
[2018-12-06] MEDS ORDERED: Cyclobenzaprine 10 MG Tab PO PRN (10:37)
[2018-12-06] MEDS ORDERED: Albuterol/Ipratropium 3.0-0.5 MG/3 ML Neb Soln INH PRN (11:00)
[2018-12-06] MEDS: Dextrose 5%-Lactated Ringers 1,000 ML IV SCH ×2 (11:01→17:47)
[2018-12-06] MEDS: Gabapentin 300 MG Cap PO SCH ×3 (13:04→21:00)
[2018-12-06] MEDS ORDERED: ceFAZolin 2 GM in Premix Bag 1 BAG IV SCH (14:00)
[2018-12-06] MEDS: Acetaminophen/oxyCODONE 325-5 MG Tab PO PRN ×2 (14:15→19:49)
[2018-12-06] MEDS: Albuterol/Ipratropium 3.0-0.5 MG/3 ML Neb Soln INH SCH ×3 (15:46→20:42)
[2018-12-06] MEDS: Formoterol/Mometasone 100-5 MCG 8.8 GM Inhaler IH SCH (20:55)
[2018-12-06] MEDS: Indacaterol/Glycopyrrolate 1 EA Cap.W.Dev Kit of 6 IH SCH (20:56)
[2018-12-06] MEDS ORDERED: Propranolol 80 MG Cap.ER PO SCH (21:00)
[2018-12-07] MEDS: Acetaminophen/oxyCODONE 325-5 MG Tab PO PRN ×3 (01:42→11:13)
[2018-12-07] MEDS: Gabapentin 300 MG Cap PO SCH ×2 (05:40→08:59)
[2018-12-07] MEDS ORDERED: Cyclobenzaprine 10 MG Tab PO PRN (07:14)
[2018-12-07] MEDS ORDERED: hydrOXYzine HCl 10 MG Tab PO PRN (07:15)
[2018-12-07] MEDS ORDERED: Pantoprazole 40 MG Tab.CR PO SCH (07:30)
[2018-12-07] MEDS: Albuterol/Ipratropium 3.0-0.5 MG/3 ML Neb Soln INH SCH ×2 (08:56→10:32)
[2018-12-07] MEDS ORDERED: DULoxetine 30 MG Cap PO SCH (09:00)
[2018-12-07] MEDS ORDERED: Docusate Sodium 100 MG Cap PO SCH (09:00)
[2018-12-07] MEDS ORDERED: Cyanocobalamin (Vitamin B12) 1,000 MCG/ML SDV IM ONE (09:00)
[2018-12-07] MEDS ORDERED: PARoxetine 20 MG Tab PO SCH (09:00)
[2018-12-07] MEDS: Indacaterol/Glycopyrrolate 1 EA Cap.W.Dev Kit of 6 IH SCH (09:05)
[2018-12-07] MEDS: Formoterol/Mometasone 100-5 MCG 8.8 GM Inhaler IH SCH (09:05)
[2018-12-07 11:02] VITALS: BP 124/80
--- NOTE | 2018-12-07 11:09 | PN ---
DATE OF SERVICE: 12/07/2018 SUBJECTIVE: Akhil Villalpando is postoperative day #1. She states her pain is fairly controlled. She has been up ambulating. Vital signs stable. Remainder of review of systems negative for any pertinent positives and negatives with the exception of her IV did infiltrate. The top of her right hand is edematous, tender, and feels tight when she tries to move it due to the swelling. OBJECTIVE: GENERAL: Irasema is a 48-year-old female. VITAL SIGNS: TPR is 97, 56, 16, blood pressure 91/55. HEENT: Negative. NECK: Supple. HEART: Regular rate and rhythm. LUNGS: Lungs reveal decreased breath sounds. Occasional wheezing, rhonchi with coughing. They actually sound better then they did preoperatively. ABDOMEN: Dressings dry and intact. Abdominal binder is on. There is a pressure dressing over previous hernia site. EXTREMITIES: Without peripheral edema. ASSESSMENT: Diagnostic laparoscopy with repair of recurrent incarcerated incisional hernia with mesh, recurrent intraperitoneal mesh and extensive and removal of transverse scar and placement of Interceed mesh. Her recurrent incarcerated incisional hernia into peritoneal mass is associated with inflammatory response and extensive intraabdominal adhesions. Date of surgery 12/06/2018. PLAN: Dressing off and may shower. Replace dressing with pressure dressing over area of hernia site. Continue to wear abdominal binder. Flexeril 10 mg q.6 hours p.r.n. muscle spasms, Atarax 10 mg p.o. q.4 hours p.r.n. additional pain not covered by Percocet, Colace 100 mg p.o. b.i.d., vitamin B12 1000 mcg IM injection one time. Good pulmonary toilet. We will evaluate p.r.n. or in a.m. Plan discharge in a.m. Rebeca Santiago PA-C /[id number]
--- NOTE | 2018-12-07 13:53 | DISCH ---
ADMISSION DIAGNOSES: 1. Incisional hernia. 2. Partial gastrectomy. 3. Unspecified surgical malabsorption. 4. B12 deficiency. 5. Anxiety. 6. Depression. 7. Bipolar disorder. 8. Fibromyalgia. DISCHARGE SUMMARY: Diagnostic laparoscopy with repair of recurrent incarcerated incisional hernia with mesh and placement of Interceed mesh to prevent additional scarring. Date of Surgery: 12/06/2018. SURGEON: Martir Bang MD. HISTORY: Irasema is a 48-year-old female with incarcerated incisional hernia. After preoperative evaluation and discussion of possible risks and possible complications, she wished to proceed with surgical procedure. HOSPITAL COURSE: Irasema had her surgery on 12/06/2018. She had no operative complications. On the morning of postop day #1, she requested to not be discharged, but later in the day she requested discharge. Her activity was good. Her pain was well managed. She has had a good oral intake, and vital signs were stable. She was able to be discharged to home on 12/07/2018. PHYSICAL EXAMINATION: GENERAL: Irasema Landaverde is a pleasant 48-year-old female. VITAL SIGNS: Height is 5 feet 2 inches, weight is 139 pounds. TPR 98.1, 86, 16. Blood pressure 124/80. HEENT: Negative. NECK: Supple. HEART: Regular rate and rhythm. LUNGS: Clear. ABDOMEN: Dressings dry and intact. Pressure dressing over former hernia site. Abdominal binder is on. EXTREMITIES: Without peripheral edema. DISPOSITION: Discharged to home. CONDITION: Stable and improving. FOLLOWUP APPOINTMENT: Rebeca Santiago PA-C, on 12/19/2018 at 1 p.m. HOME MEDICATION: Percocet 5/325 mg 1 to 2 every 4 hours p.r.n. pain #40. Resume home medications as before. DIET: Usual diet as tolerated. Drink 8 to 10 glasses of water a day. ACTIVITY: No lifting greater than 10 pounds for 6 weeks. Other activity, walk at least 6 times daily inside your home. Driving, do not drive for 1 week and while on pain medication. Shower/bathing, may shower. Keep operative site clean and dry. Wear a pressure dressing over hernia site for about 6 weeks. Wear abdominal binder for 6 weeks. Notify provider if any fever, increased pain, nausea, vomiting, and use incentive spirometer 10 times every hour while awake for 1 week.
--- NOTE | 2018-12-10 14:42 | OR ---
DATE OF PROCEDURE: 12/06/2018 PREOPERATIVE DIAGNOSIS: Recurrent incarcerated incisional hernia. POSTOPERATIVE DIAGNOSES: 1. Recurrent incarcerated incisional hernia. 2. Intraperitoneal mass associated with exaggerated local inflammatory response. 3. Extensive intraabdominal adhesions. OPERATIVE PROCEDURES: 1. Diagnostic laparoscopy with: a. Repair of recurrent incarcerated incisional hernia with mesh (70459). b. Removal of previously placed intraperitoneal mesh with attached soft tissue associated with exaggerated inflammatory scar formation (22829). c. Placement of Interceed mesh to limit recurrent adhesion formation (58010). ANESTHESIA: General. 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 INDICATION FOR PROCEDURE: This is a 48-year-old status post previously repaired incisional hernia located in the left mid abdomen associated with the trocar site. The patient had been doing well when she developed some respiratory symptoms and developed some violent coughing and developed a recurrence of the hernia. Clinically, this hernia appeared to be just above the previously placed mesh. Mesh itself was quite tender on palpation associated with localized inflammatory response. Plan is to proceed with diagnostic laparoscopy and repair of recurrent incisional hernia with mesh with probable removal of the previously placed intraperitoneal mesh so as to avoid problems with chronic postoperative pain. Potential risks including bleeding, infection, injury to underlying viscera, problems with chronic pain following the procedure, recurrence of hernia, mesh becoming infected were all reviewed, and the patient wishes to proceed. DETAILS OF PROCEDURE: The patient was taken to the operating room and placed in a supine position. After general endotracheal anesthesia was induced, a Perez catheter was inserted, which was removed at the end of the procedure. Then, the abdomen was prepped and draped. In the right mid abdomen, a transverse incision was made and the peritoneal cavity was entered under direct vision with an Optiview trocar and inflated to 15 mmHg pressure with CO2. Laparoscope was reinserted. No underlying trocar insertion site injuries were seen. Following this, 5 mm trocars were placed in the right lower quadrant as well as right upper quadrant and bilateral transversus abdominis pain blocks were then placed. The patient was noted to have extensive adhesions in the area of the hernia formation with some omentum being incarcerated within the abdominal wall hernia just above the previously placed mesh. This was taken down with Harmonic Scalpel, and at that point, the previously placed mesh which was associated with an obvious marked contracture and the soft tissue scar around it was excised along with some of the scar and that specimen at the end of the procedure delivered from the field along with some incarcerated hernia contents. At this point, the defect was mapped out and a Ventralight ST mesh with a circular configuration and diameter of 20.2 cm was selected. This was placed in antibiotic-containing saline solution and then placed in intraperitoneal location. Small stab wound over the center of the hernia was then made at the skin level and suture passer passed through the center of the hernia, where the balloon inflation catheter was grasped and pulled upward, which was inflated thus pushing the mesh up against the abdominal wall. Two circumferential rings of absorbable tacking screws were then placed; one at the outer aspect of the mesh and one mesh adjacent to the hernia defect. At that point, the balloon catheter was deflated and withdrawn. There appeared to be good fixation of the mesh in all locations. The patient was felt to be at significant risk for significant adhesion formation as there had been large amount of omental adhesions in the area of the hernia noted at the time of procedure which had been taken down with Harmonic Scalpel. Interceed mesh was then placed along the pelvis and then up against the abdominal wall and underlying mesh to displace the viscera from those surfaces to probably minimize chances of postoperative adhesion formation. At that point, no further problems noted. The 12 mm trocar site was closed with 0 Vicryl stitch and the peritoneal cavity deflated and the incisions at skin were closed with 4-0 Vicryl skin stitch. Dressings were applied. The patient was taken to the recovery room in satisfactory condition. There were no evident complications. Physician acute care assistant, Rebeca Santiago PA-C, played essential role in assisting in this case, helping to position the patient, retract structures as needed, as well as suturing and cutting sutures as indicated. Her presence improved patient safety and decreased operative time. Martir Bang MD /[id number]
== END 2018-12-07 13:50 | disposition home or self-care (01) | DRG 354 ==
LOC: JP.SDS 05:28 → JP.SDSSCHI 05:28 → EDSTATUS 09:00 → JP.MS 09:45
PROVIDERS: ADMIT Surgery; ATTEND Surgery
PROC: 0WUF4JZ Supplement Abdominal Wall with Synthetic Substitute, Percutaneous Endoscopic Approach (ICD-10-PCS; principal; 2018-12-06)
PROC: 3E0M45Z Introduction of Adhesion Barrier into Peritoneal Cavity, Percutaneous Endoscopic Approach (ICD-10-PCS; 2018-12-06)
PROC: 0DP Gastrointestinal System, Removal (ICD-10-PCS; 2018-12-06)
DX: K43.0 Incisional hernia with obstruction, without gangrene (principal); K91.2 Postsurgical malabsorption, not elsewhere classified; K66.0 Peritoneal adhesions (postprocedural) (postinfection); F31.70 Bipolar disorder, currently in remission, most recent episode unspecified; K21.9 Gastro-esophageal reflux disease without esophagitis; G47.30 Sleep apnea, unspecified; F17.210 Nicotine dependence, cigarettes, uncomplicated; M79.7 Fibromyalgia; K59.00 Constipation, unspecified; Z90.3 Acquired absence of stomach [part of]; E53.8 Deficiency of other specified B group vitamins
CPT/HCPCS: 36415; 80053; 83735; 84100; 85027; 88300; 88302; 94640; A9270-GY; C1781; J0171; J0690; J1100; J1170; J2020; J2185; J2405; J2704; J2710; J2795; J3010; J3420; J3490; J7042; J7050; J7620-GY

== ENCOUNTER 2019-03-22 22:58 | Emergency (ER) | payer MEDICARE, MEDICAID ==
[2019-03-23 00:03] VITALS: BP 125/69
--- NOTE | 2019-03-23 00:12 | EDM.PDOC ---
ED HPI GENERAL MEDICAL PROBLEM - General Chief Complaint: General Stated Complaint: DIZZY,BODY HURTS Time Seen by Provider: 03/22/19 23:58 - Related Data Allergies Allergy/AdvReac Type Severity Reaction Status Date / Time latex Allergy Hives Verified 03/22/19 23:57 Sulfa (Sulfonamide Allergy Rash Verified 03/22/19 23:57 Antibiotics) topiramate [From Topamax] Allergy Cannot Verified 03/22/19 23:57 Remember Home Meds: Home Meds Multivitamin [Multivitamins] 1 tab PO DAILY 09/22/15 [History] Albuterol Sulfate [Proair Respiclick] 2 puff IH QID PRN 10/05/15 [History] tiZANidine HCl [Zanaflex] 4 - 8 mg PO BEDTIME PRN 10/05/15 [History] hydrOXYzine pamoate [Hydroxyzine Pamoate] 25 mg PO ASDIRECTED PRN 07/15/18 [ History] Budesonide/Formoterol [Symbicort 80-4.5 MCG] 2 puff IH BID 11/13/18 [History] Cholecalciferol (Vitamin D3) [Vitamin D3] 2,000 units PO DAILY 11/13/18 [History ] DULoxetine [Cymbalta] 60 mg PO DAILY 11/13/18 [History] Fluticasone Propionate [Flonase] 2 sprays EVELIA DAILY 11/13/18 [History] PARoxetine [Paxil] 10 mg PO DAILY 11/13/18 [History] Pantoprazole Sodium [Protonix] 40 mg PO DAILY 11/13/18 [History] Umeclidinium Brm/Vilanterol Tr [Anoro Ellipta 62.5-25 MCG] 1 puff IH DAILY 11/13 [History] Nicotine [Habitrol] 1 patch TOP DAILY 12/04/18 [History] Nicotine [Nicotrol] 1 puff INH ASDIRECTED PRN 12/04/18 [History] Sennosides/Docusate Sodium [Senokot-S Tablet] 2 tab PO DAILY 12/04/18 [History] Triamcinolone Acetonide [Kenalog 0.1% Crm] 1 applic TOP BID 12/04/18 [History] Pregabalin [Lyrica] 1 cap PO BID 03/23/19 [History] Vitamin B Complex [B Complex] 1,000 mcg SL DAILY 03/23/19 [History] Past Medical History HEENT History: Reports: Allergic Rhinitis, Impaired Vision, Macular Degeneration , Retinal Detachment, Sinusitis Cardiovascular History: Reports: High Cholesterol Other Cardiovascular History: Carotid artery blockage. 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 Musculoskeletal History: Reports: Arthritis, Back Pain, Chronic, Fibromyalgia, Neck Pain, Chronic, Osteoarthritis, Other (See Below) Other Musculoskeletal History: neuropathy Neurological History: Reports: Concussion, Headaches, Chronic, Head Trauma, Migraines, Neuropathy, Peripheral, Seizure, Vertigo Other Neuro History: lymes hx Psychiatric History: Reports: Anxiety, Bipolar, Dementia, Depression, Emotional Problems, Learning Disability, Panic Attack, PTSD Other Psychiatric History: chronic pain syndrome Endocrine/Metabolic History: Reports: None Hematologic History: Reports: B12 Deficiency Immunologic History: Reports: None Oncologic (Cancer) History: Reports: Cervix Dermatologic History: Reports: None - Infectious Disease History Infectious Disease History: Reports: Chicken Pox - Past Surgical History Head Surgeries/Procedures: Reports: None HEENT Surgical History: Reports: Tonsillectomy Other HEENT Surgeries/Procedures: "tonsils grew back" Cardiovascular Surgical History: Reports: None Respiratory Surgical History: Reports: None GI Surgical History: Reports: EGD, Hernia, Abdominal, Samson Fundoplication Other GI Surgeries/Procedures: partial gastrectomy Female Surgical History: Reports: Section, Hysterectomy, Salpingo- Oophorectomy Neurological Surgical History: Reports: None Musculoskeletal Surgical History: Reports: Other (See Below) Other Musculoskeletal Surgeries/Procedures:: Elbow surgery Oncologic Surgical History: Reports: Other (See Below) Other Oncologic Surgeries/Procedures: Hysterectomy Dermatological Surgical History: Reports: None Social & Family History - Family History Family Medical History: Noncontributory - Caffeine Use Caffeine Use: Reports: Coffee, Soda ED ROS GENERAL - Review of Systems Review Of Systems: See Below ED EXAM, GENERAL - Physical Exam Exam: See Below Course - Vital Signs Last Recorded V/S: Last Vital Signs Temp 37.1 C 03/23/19 00:03 Pulse 74 03/23/19 00:03 Resp 16 03/23/19 00:03 BP 125/69 03/23/19 00:03 Pulse Ox 98 03/23/19 00:03 - Orders/Labs/Meds Labs: Laboratory Tests 03/23/19 03/23/19 03/23/19 Range/Units 00:45 00:45 00:45 WBC 15.7 H (4.5-11.0) K/uL RBC 4.12 (3.30-5.50) M/uL Hgb 12.6 (12.0-15.0) g/dL Hct 39.0 (36.0-48.0) % MCV 95 (80-98) fL MCH 31 (27-31) pg MCHC 32 (32-36) % Plt Count 239 (150-400) K/uL Neut % (Auto) 73 H (36-66) % Lymph % (Auto) 17 L (24-44) % [place] % (Auto) 8 H (2-6) % Eos % (Auto) 2 (2-4) % Baso % (Auto) 1 (0-1) % Sodium 137 L (140-148) mmol/L Potassium 3.6 (3.6-5.2) mmol/L Chloride 102 (100-108) mmol/L Carbon Dioxide 25 (21-32) mmol/L Anion Gap 13.6 (5.0-14.0) mmol/L BUN 20 H (7-18) mg/dL Creatinine 1.0 (0.6-1.0) mg/dL Est Cr Clr Drug Dosing 53.23 mL/min Estimated GFR (MDRD) 59 L (>60) Glucose 101 (74-106) mg/dL Calcium 9.0 (8.5-10.1) mg/dL C-Reactive Protein 0.25 (0.0-0.3) mg/dL Departure - Departure Time of Disposition: 02:20 Disposition: Home, Self-Care 01 Condition: Good Clinical Impression: Gastroenteritis - Discharge Information *PRESCRIPTION DRUG MONITORING PROGRAM REVIEWED*: No *COPY OF PRESCRIPTION DRUG MONITORING REPORT IN PATIENT MICHAEL: No Instructions: Viral Gastroenteritis, Adult Referrals: Johnson Sr MD [Primary Care Provider] - Forms: ED Department Discharge Care Plan Goals: Avoid dairy foods until feeling better. Continue medications as prescribed. You may be a little sleepier as the gabapentin and Lyrica effects overlap. Follow primary care plan as outlined on Monday. - Problem List & Annotations (1) Gastroenteritis SNOMED Code(s): 04316886 Code(s): K52.9 - NONINFECTIVE GASTROENTERITIS AND COLITIS, UNSPECIFIED Status: Acute Priority: Low Current Visit: Yes - Problem List Review Problem List Initiated/Reviewed/Updated: Yes - Assessment/Plan Assessment:: Gastroenteritis. Chronic pain. Plan: Avoid dairy foods until feeling better. Continue medications as prescribed. You may be a little sleepier as the gabapentin and Lyrica effects overlap. Follow primary care plan as outlined on Monday.
== END 2019-03-23 02:36 | disposition home or self-care (01) ==
LOC: JP.ED 22:58
DX: K52.9 Noninfective gastroenteritis and colitis, unspecified (principal); G89.29 Other chronic pain; F31.9 Bipolar disorder, unspecified; F41.9 Anxiety disorder, unspecified; E78.00 Pure hypercholesterolemia, unspecified; J44.9 Chronic obstructive pulmonary disease, unspecified; Z79.899 Other long term (current) drug therapy; Z88.2 Allergy status to sulfonamides; Z88.8 Allergy status to other drugs, medicaments and biological substances; Z91.040 Latex allergy status
CPT/HCPCS: 36415; 80048; 85025; 86140; 99283

== ENCOUNTER 2019-05-18 22:08 | Inpatient (IN) | payer MEDICARE, MEDICAID ==
[2019-05-18] MEDS ORDERED: Ketorolac 30 MG/ML SDV IVPUSH ONE (22:48)
[2019-05-18] MEDS ORDERED: Acetaminophen 325 MG Tab PO ONE (22:49)
--- NOTE | 2019-05-18 22:53 | EDM.PDOC ---
ED HPI GENERAL MEDICAL PROBLEM - General Chief Complaint: Respiratory Problem Stated Complaint: ILLNESS Time Seen by Provider: 05/18/19 22:50 Source of Information: Reports: Patient History Limitations: Reports: No Limitations - History of Present Illness INITIAL COMMENTS - FREE TEXT/NARRATIVE: pt got sick last nite and she has been ill all day. She has been coughing up alot of yellow sputum. She presently has shaking chills. She has a temp of 104. She has some pain when she takes a deep breath. Onset: Other ( started yesterday. ) Duration: Hour(s): Location: Reports: Chest Associated Symptoms: Reports: Cough, Diaphoresis, Fever/Chills, Shortness of Breath, Weakness Bilateral Lower Trunk Pain Score (Numeric/FACES): 7 - Related Data Allergies Allergy/AdvReac Type Severity Reaction Status Date / Time latex Allergy Hives Verified 03/22/19 23:57 Sulfa (Sulfonamide Allergy Rash Verified 03/22/19 23:57 Antibiotics) topiramate [From Topamax] Allergy Cannot Verified 03/22/19 23:57 Remember Home Meds: Home Meds Multivitamin [Multivitamins] 1 tab PO DAILY 09/22/15 [History] Albuterol Sulfate [Proair Respiclick] 2 puff IH QID PRN 10/05/15 [History] tiZANidine HCl [Zanaflex] 1 - 2 tab PO BEDTIME PRN 10/05/15 [History] hydrOXYzine pamoate [Hydroxyzine Pamoate] 25 mg PO TID PRN 07/15/18 [History] Budesonide/Formoterol [Symbicort 80-4.5 MCG] 2 puff IH BID 11/13/18 [History] Cholecalciferol (Vitamin D3) [Vitamin D3] 2,000 units PO DAILY 11/13/18 [History ] DULoxetine [Cymbalta] 60 mg PO DAILY 11/13/18 [History] Fluticasone Propionate [Flonase] 2 sprays EVELIA DAILY 11/13/18 [History] PARoxetine [Paxil] 10 mg PO DAILY 11/13/18 [History] Pantoprazole Sodium [Protonix] 40 mg PO DAILY 11/13/18 [History] Umeclidinium Brm/Vilanterol Tr [Anoro Ellipta 62.5-25 MCG] 1 puff IH DAILY 11/13 [History] Nicotine [Habitrol] 1 patch TOP DAILY 12/04/18 [History] Nicotine [Nicotrol] 1 puff INH ASDIRECTED PRN 12/04/18 [History] Sennosides/Docusate Sodium [Senokot-S Tablet] 1 - 2 tab PO DAILY PRN 12/04/18 [ History] Triamcinolone Acetonide [Kenalog 0.1% Crm] 1 applic TOP BID 12/04/18 [History] Pregabalin [Lyrica] 1 cap PO BID 03/23/19 [History] Vitamin B Complex [B Complex] 1,000 mcg SL DAILY 03/23/19 [History] Past Medical History HEENT History: Reports: Allergic Rhinitis, Impaired Vision, Macular Degeneration , Retinal Detachment, Sinusitis Cardiovascular History: Reports: High Cholesterol Other Cardiovascular History: Carotid artery blockage. 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 Musculoskeletal History: Reports: Arthritis, Back Pain, Chronic, Fibromyalgia, Neck Pain, Chronic, Osteoarthritis, Other (See Below) Other Musculoskeletal History: neuropathy Neurological History: Reports: Concussion, Headaches, Chronic, Head Trauma, Migraines, Neuropathy, Peripheral, Seizure, Vertigo Other Neuro History: lymes hx Psychiatric History: Reports: Anxiety, Bipolar, Dementia, Depression, Emotional Problems, Learning Disability, Panic Attack, PTSD Other Psychiatric History: chronic pain syndrome Endocrine/Metabolic History: Reports: None Hematologic History: Reports: B12 Deficiency Immunologic History: Reports: None Oncologic (Cancer) History: Reports: Cervix Dermatologic History: Reports: None - Infectious Disease History Infectious Disease History: Reports: Chicken Pox - Past Surgical History Head Surgeries/Procedures: Reports: None HEENT Surgical History: Reports: Tonsillectomy Other HEENT Surgeries/Procedures: "tonsils grew back" Cardiovascular Surgical History: Reports: None Respiratory Surgical History: Reports: None GI Surgical History: Reports: EGD, Hernia, Abdominal, Samson Fundoplication Other GI Surgeries/Procedures: partial gastrectomy Female Surgical History: Reports: Section, Hysterectomy, Salpingo- Oophorectomy Neurological Surgical History: Reports: None Musculoskeletal Surgical History: Reports: Other (See Below) Other Musculoskeletal Surgeries/Procedures:: Elbow surgery Oncologic Surgical History: Reports: Other (See Below) Other Oncologic Surgeries/Procedures: Hysterectomy Dermatological Surgical History: Reports: None Social & Family History - Family History Family Medical History: Noncontributory - Tobacco Use Smoking Status *Q: Current Every Day Smoker Years of Tobacco use: 38 Packs/Tins Daily: 0.5 - Caffeine Use Caffeine Use: Reports: Coffee, Soda, Tea Caffeine Use Comment: seldom - Recreational Drug Use Recreational Drug Use: Yes Drug Use in Last 12 Months: Yes Recreational Drug Type: Reports: Marijuana/Hashish Recreational Drug Use Frequency: Daily ED ROS GENERAL - Review of Systems Review Of Systems: See Below Constitutional: Reports: Fever, Chills, Malaise, Diaphoresis HEENT: Reports: No Symptoms Respiratory: Reports: Shortness of Breath, Cough, Sputum Cardiovascular: Reports: No Symptoms Endocrine: Reports: No Symptoms GI/Abdominal: Reports: No Symptoms : Reports: No Symptoms Musculoskeletal: Reports: Hand Pain Skin: Reports: No Symptoms Neurological: Reports: No Symptoms Psychiatric: Reports: No Symptoms ED EXAM, GENERAL - Physical Exam Exam: See Below Free Text/Narrative:: pt arrived with a fever of 104 and shaking chills. She has been ill for 2 days and she has been coughing up yellow sputum. Exam Limited By: No Limitations General Appearance: Alert, Moderate Distress Ears: Normal TMs Nose: Normal Inspection Throat/Mouth: Normal Inspection Head: Atraumatic Neck: Normal Inspection Respiratory/Chest: Other (pt has decreased breath sounds on the left side. She has pain with deep breathing. ) Cardiovascular: Regular Rate, Rhythm, Tachycardia GI/Abdominal: Soft, Non-Tender (Female) Exam: Deferred Rectal (Female) Exam: Deferred Back Exam: Normal Inspection Extremities: Normal Inspection Neurological: Alert, Oriented, Normal Cognition, Other (pt is fairly lethargic. ) Psychiatric: Normal Affect Course - Vital Signs Last Recorded V/S: Last Vital Signs Temp 39.1 C H 05/18/19 23:39 Pulse 91 05/18/19 22:26 Resp 16 05/18/19 22:26 BP 97/43 L 05/18/19 22:26 Pulse Ox 99 05/18/19 22:26 - Orders/Labs/Meds Orders: Active Orders 24 hr Category Date Time Status CULTURE BLOOD [BC] Urgent Lab 05/18/19 22:45 Received CULTURE BLOOD [BC] Urgent Lab 05/18/19 22:55 Received UA W/MICROSCOPIC [URIN] Urgent Lab 05/18/19 23:22 Ordered Sodium Chloride 0.9% [Normal Saline] 1,000 ml Med 05/18/19 23:00 Active IV ASDIRECTED Blood Culture x2 Reflex Set [OM.PC] Urgent Oth 05/18/19 22:47 Ordered Medication Orders Sodium Chloride (Normal Saline) 1,000 mls @ 999 mls/hr IV ASDIRECTED DOT Last Admin: 05/18/19 23:15 Dose: 999 mls/hr Labs: Laboratory Tests 05/18/19 05/18/19 05/18/19 Range/Units 22:45 22:45 22:55 WBC 21.1 H (4.5-11.0) K/uL RBC 3.85 (3.30-5.50) M/uL Hgb 11.8 L (12.0-15.0) g/dL Hct 36.2 (36.0-48.0) % MCV 94 (80-98) fL MCH 31 (27-31) pg MCHC 33 (32-36) % Plt Count 247 (150-400) K/uL Neut % (Auto) 88 H (36-66) % Lymph % (Auto) 6 L (24-44) % [place] % (Auto) 6 (2-6) % Eos % (Auto) 0 L (2-4) % Baso % (Auto) 0 (0-1) % Sodium 137 L (140-148) mmol/L Potassium 4.0 (3.6-5.2) mmol/L Chloride 101 (100-108) mmol/L Carbon Dioxide 26 (21-32) mmol/L Anion Gap 14.0 (5.0-14.0) mmol/L BUN 20 H (7-18) mg/dL Creatinine 1.1 H (0.6-1.0) mg/dL Est Cr Clr Drug Dosing 48.39 mL/min Estimated GFR (MDRD) 53 L (>60) Glucose 119 H (74-106) mg/dL Lactic Acid 1.1 (0.4-2.0) mmol/L Calcium 8.8 (8.5-10.1) mg/dL Total Bilirubin 0.4 (0.2-1.0) mg/dL AST 23 (15-37) U/L ALT 27 (12-78) U/L Alkaline Phosphatase 81 (46-116) U/L C-Reactive Protein (0.0-0.3) mg/dL Total Protein 7.2 (6.4-8.2) g/dL Albumin 3.3 L (3.4-5.0) g/dL Globulin 3.9 H (2.3-3.5) g/dL Albumin/Globulin Ratio 0.9 L (1.2-2.2) 05/18/19 Range/Units 22:55 WBC (4.5-11.0) K/uL RBC (3.30-5.50) M/uL Hgb (12.0-15.0) g/dL Hct (36.0-48.0) % MCV (80-98) fL MCH (27-31) pg MCHC (32-36) % Plt Count (150-400) K/uL Neut % (Auto) (36-66) % Lymph % (Auto) (24-44) % [place] % (Auto) (2-6) % Eos % (Auto) (2-4) % Baso % (Auto) (0-1) % Sodium (140-148) mmol/L Potassium (3.6-5.2) mmol/L Chloride (100-108) mmol/L Carbon Dioxide (21-32) mmol/L Anion Gap (5.0-14.0) mmol/L BUN (7-18) mg/dL Creatinine (0.6-1.0) mg/dL Est Cr Clr Drug Dosing mL/min Estimated GFR (MDRD) (>60) Glucose (74-106) mg/dL Lactic Acid (0.4-2.0) mmol/L Calcium (8.5-10.1) mg/dL Total Bilirubin (0.2-1.0) mg/dL AST (15-37) U/L ALT (12-78) U/L Alkaline Phosphatase (46-116) U/L C-Reactive Protein 8.65 H (0.0-0.3) mg/dL Total Protein (6.4-8.2) g/dL Albumin (3.4-5.0) g/dL Globulin (2.3-3.5) g/dL Albumin/Globulin Ratio (1.2-2.2) Meds: Medications Generic Name Dose Route Start Last Admin Trade Name Fletcher PRN Reason Stop Dose Admin Sodium Chloride 1,000 mls @ 999 mls/hr 05/18/19 23:00 05/18/19 23:15 Normal Saline IV 999 mls/hr ASDIRECTED DOT Administration Discontinued Medications Generic Name Dose Route Start Last Admin Trade Name Fletcher PRN Reason Stop Dose Admin Acetaminophen 650 mg 05/18/19 22:49 05/18/19 22:59 Tylenol PO 05/18/19 22:50 650 mg NOW ONE Administration Ketorolac Tromethamine 30 mg 05/18/19 22:48 05/18/19 23:14 Toradol IVPUSH 05/18/19 22:49 30 mg ONETIME ONE Administration - Re-Assessments/Exams Free Text/Narrative Re-Assessment/Exam: 05/19/19 00:05 pt has a 21,000. wbc. Her temp was 104. She was given torodol and tylenol for the temp. Blood cultures were drawn. her elctrolytes indicate that she is on the dry side. Pt has a CRP o over 8. Her chest xray shows a definite infiltrate in the left lower lung. There may be some infiltrate in the rt lower lung field also. 05/19/19 00:07 Departure - Departure Time of Disposition: 00:08 Disposition: Admitted As Inpatient 64 Condition: Fair Clinical Impression: Left lower lobe pneumonia, Dehydration - Discharge Information Referrals: Johnson Sr MD [Primary Care Provider] - Forms: ED Department Discharge Care Plan Goals: admit to [facility] - My Orders Last 24 Hours: My Active Orders 05/18/19 22:45 CULTURE BLOOD [BC] Urgent 05/18/19 22:47 Blood Culture x2 Reflex Set [OM.PC] Urgent 05/18/19 22:55 CULTURE BLOOD [BC] Urgent 05/18/19 23:00 Sodium Chloride 0.9% [Normal Saline] 1,000 ml IV ASDIRECTED 05/18/19 23:22 UA W/MICROSCOPIC [URIN] Urgent - Assessment/Plan Last 24 Hours: My Active Orders 05/18/19 22:45 CULTURE BLOOD [BC] Urgent 05/18/19 22:47 Blood Culture x2 Reflex Set [OM.PC] Urgent 05/18/19 22:55 CULTURE BLOOD [BC] Urgent 05/18/19 23:00 Sodium Chloride 0.9% [Normal Saline] 1,000 ml IV ASDIRECTED 05/18/19 23:22 UA W/MICROSCOPIC [URIN] Urgent
[2019-05-18] MEDS ORDERED: Sodium Chloride 0.9% 1,000 ML IV SCH (23:00)
--- NOTE | 2019-05-18 23:45 | CRLCR ---
Indication: Shortness of breath and fever Technique: Chest 2 views Comparison: None Findings: Cardiovascular and mediastinum: Heart size and vasculature are normal in caliber and appearance. Lungs and pleural spaces: Airspace infiltrate is present in the left lower lobe. Infiltrate may also be present in the infrahilar region of the right lower lobe. Upper lungs are clear. No effusions and no pneumothorax. Bones and soft tissues: No significant findings. Impression: Left lower lobe pneumonia and possible right infrahilar pneumonia. Dictated by Rasheed Carrillo MD @ May 18 2019 11:42PM Signed by Dr. Rasheed Carrillo @ May 18 2019 11:43PM
[2019-05-19] MEDS ORDERED: cefTRIAXone 1 GM in Sodium Chloride 0.9% 50 ML IV ONE (00:18)
[2019-05-19] MEDS ORDERED: Sodium Chloride 0.9% 1,000 ML IV SCH (00:30)
--- NOTE | 2019-05-19 01:09 | PCM.HP ---
H&P History of Present Illness - General Date of Service: 05/19/19 Admit Problem/Dx: Admission Diagnosis/Problem Admission Diagnosis/Problem Pneumonia Source of Information: Patient, Provider, RN History Limitations: Reports: No Limitations - History of Present Illness Initial Comments - Free Text/Narative: chief complaint: fever and chills This is a 48 year old female presents to ER for evaluation of fever and chills. She walked to the hospital from her house, upon arrival had a temp of 104. she reports being sick for 2 days with fever, chills and cough. Chest hurts to cough , has occasional yellow sputum in cough. Onset of Symptoms: Reports: Gradual Symptom Onset Date: 05/18/19 Duration of Symptoms: Reports: Getting Worse Location: Reports: Chest, Generalized (fever and chills) Quality: Reports: Ache, Burning Severity: Moderate Improves with: Reports: None Worsens with: Reports: None Context: Reports: Other (illness x 2 days) Associated Symptoms: Reports: Cough, Fever/Chills, Loss of Appetite, Nausea/ Vomiting, Shortness of Breath, Weakness Bilateral Lower Trunk Pain Score (Numeric/FACES): 7 - Related Data Allergies/Adverse Reactions: Allergies Allergy/AdvReac Type Severity Reaction Status Date / Time latex Allergy Hives Verified 03/22/19 23:57 Sulfa (Sulfonamide Allergy Rash Verified 03/22/19 23:57 Antibiotics) topiramate [From Topamax] Allergy Cannot Verified 03/22/19 23:57 Remember Home Medications: Home Meds Multivitamin [Multivitamins] 1 tab PO DAILY 09/22/15 [History] Albuterol Sulfate [Proair Respiclick] 2 puff IH QID PRN 10/05/15 [History] tiZANidine HCl [Zanaflex] 1 - 2 tab PO BEDTIME PRN 10/05/15 [History] hydrOXYzine pamoate [Hydroxyzine Pamoate] 25 mg PO TID PRN 07/15/18 [History] Budesonide/Formoterol [Symbicort 80-4.5 MCG] 2 puff IH BID 11/13/18 [History] Cholecalciferol (Vitamin D3) [Vitamin D3] 2,000 units PO DAILY 11/13/18 [History ] DULoxetine [Cymbalta] 60 mg PO DAILY 11/13/18 [History] Fluticasone Propionate [Flonase] 2 sprays EVELIA DAILY 11/13/18 [History] PARoxetine [Paxil] 10 mg PO DAILY 11/13/18 [History] Pantoprazole Sodium [Protonix] 40 mg PO DAILY 11/13/18 [History] Umeclidinium Brm/Vilanterol Tr [Anoro Ellipta 62.5-25 MCG] 1 puff IH DAILY 11/13 [History] Nicotine [Habitrol] 1 patch TOP DAILY 12/04/18 [History] Nicotine [Nicotrol] 1 puff INH ASDIRECTED PRN 12/04/18 [History] Sennosides/Docusate Sodium [Senokot-S Tablet] 1 - 2 tab PO DAILY PRN 12/04/18 [ History] Triamcinolone Acetonide [Kenalog 0.1% Crm] 1 applic TOP BID 12/04/18 [History] Pregabalin [Lyrica] 1 cap PO BID 03/23/19 [History] Vitamin B Complex [B Complex] 1,000 mcg SL DAILY 03/23/19 [History] Past Medical History HEENT History: Reports: Allergic Rhinitis, Impaired Vision, Macular Degeneration , Retinal Detachment, Sinusitis Cardiovascular History: Reports: High Cholesterol Other Cardiovascular History: Carotid artery blockage. 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: , Spontaneous Musculoskeletal History: Reports: Arthritis, Back Pain, Chronic, Fibromyalgia, Neck Pain, Chronic, Osteoarthritis, Other (See Below) Other Musculoskeletal History: neuropathy Neurological History: Reports: Concussion, Headaches, Chronic, Head Trauma, Migraines, Neuropathy, Peripheral, Seizure, Vertigo Other Neuro History: lymes hx Psychiatric History: Reports: Anxiety, Bipolar, Dementia, Depression, Emotional Problems, Learning Disability, Panic Attack, PTSD Other Psychiatric History: chronic pain syndrome Endocrine/Metabolic History: Reports: None Hematologic History: Reports: B12 Deficiency Immunologic History: Reports: None Oncologic (Cancer) History: Reports: Cervix Dermatologic History: Reports: None - Infectious Disease History Infectious Disease History: Reports: Chicken Pox - Past Surgical History Head Surgeries/Procedures: Reports: None HEENT Surgical History: Reports: Tonsillectomy Other HEENT Surgeries/Procedures: "tonsils grew back" Cardiovascular Surgical History: Reports: None Respiratory Surgical History: Reports: None GI Surgical History: Reports: EGD, Hernia, Abdominal, Samson Fundoplication Other GI Surgeries/Procedures: partial gastrectomy Female Surgical History: Reports: Section, Hysterectomy, Salpingo- Oophorectomy Neurological Surgical History: Reports: None Musculoskeletal Surgical History: Reports: Other (See Below) Other Musculoskeletal Surgeries/Procedures:: Elbow surgery Oncologic Surgical History: Reports: Other (See Below) Other Oncologic Surgeries/Procedures: Hysterectomy Dermatological Surgical History: Reports: None Social & Family History - Family History Family Medical History: Noncontributory - Tobacco Use Smoking Status *Q: Current Every Day Smoker Years of Tobacco use: 38 Packs/Tins Daily: 0.5 - Caffeine Use Caffeine Use: Reports: Coffee, Soda, Tea Caffeine Use Comment: seldom - Recreational Drug Use Recreational Drug Use: Yes Drug Use in Last 12 Months: Yes Recreational Drug Type: Reports: Marijuana/Hashish Recreational Drug Use Frequency: Daily - Living Situation & Occupation Living situation: Reports: Occupation: Unemployed (lives in alone in [place]. Children all grown, one lives in [place], one live in [place] and 1 in [place].) H&P Review of Systems - Review of Systems: Review Of Systems: See Below General: Reports: Fever (104), Chills, Malaise, Weakness HEENT: Reports: No Symptoms Pulmonary: Reports: Shortness of Breath, Pleuritic Chest Pain, Cough, Sputum Cardiovascular: Reports: No Symptoms, Edema (has chronic lower leg edema) Gastrointestinal: Reports: Nausea, Vomiting, Other (last stool today May 18, 2019, denies any black or tarry stools) Genitourinary: Reports: No Symptoms Musculoskeletal: Reports: Muscle Pain Skin: Reports: No Symptoms Psychiatric: Reports: No Symptoms Neurological: Reports: No Symptoms Hematologic/Lymphatic: Reports: No Symptoms Immunologic: Reports: No Symptoms Exam - Exam Exam: See Below - Vital Signs Vital Signs: Last Vital Signs Temp 37.4 C 05/19/19 00:45 Pulse 94 05/18/19 23:24 Resp 16 05/18/19 22:26 BP 117/56 L 05/18/19 23:54 Pulse Ox 99 05/18/19 22:26 Weight: 68.583 kg - Exam Quality Assessment: DVT Prophylaxis General: Alert, Oriented, Cooperative, Sedated HEENT: PERRLA, Conjunctiva Clear, EACs Clear, EOMI, Hearing Intact, Mucosa Moist & [place], Nares Patent, Normal Nasal Septum, Posterior Pharynx Clear, Pupils Equal, Pupils Reactive, TMs Clear, Glasses, Other (dentures) Neck: Supple, Trachea Midline, 2 Lungs: Normal Respiratory Effort, Decreased Breath Sounds, Wheezing (right) Cardiovascular: Regular Rate, Regular Rhythm, Normal S1, Normal S2 GI/Abdominal Exam: Normal Bowel Sounds, Soft, Non-Tender, No Distention (Female) Exam: Deferred Rectal (Female) Exam: Deferred Back Exam: Normal Inspection, Full Range of Motion Extremities: Normal Inspection, Normal Range of Motion, Non-Tender, Normal Capillary Refill, Pedal Edema (1+) Peripheral Pulses: 2+: Radial (R), Femoral (L) Skin: Warm, Dry, Intact Neurological: Cranial Nerves Intact, Reflexes Equal Bilateral Neuro Extensive - Mental Status: Alert, Oriented x3, Normal Mood/Affect, Normal Cognition Psychiatric: Alert, Normal Affect, Normal Mood - Patient Data Lab Results Last 24 hrs: Laboratory Results - last 24 hr 05/18/19 05/18/19 05/18/19 Range/Units 22:45 22:45 22:55 WBC 21.1 H (4.5-11.0) K/uL RBC 3.85 (3.30-5.50) M/uL Hgb 11.8 L (12.0-15.0) g/dL Hct 36.2 (36.0-48.0) % MCV 94 (80-98) fL MCH 31 (27-31) pg MCHC 33 (32-36) % Plt Count 247 (150-400) K/uL Neut % (Auto) 88 H (36-66) % Lymph % (Auto) 6 L (24-44) % [place] % (Auto) 6 (2-6) % Eos % (Auto) 0 L (2-4) % Baso % (Auto) 0 (0-1) % Sodium 137 L (140-148) mmol/L Potassium 4.0 (3.6-5.2) mmol/L Chloride 101 (100-108) mmol/L Carbon Dioxide 26 (21-32) mmol/L Anion Gap 14.0 (5.0-14.0) mmol/L BUN 20 H (7-18) mg/dL Creatinine 1.1 H (0.6-1.0) mg/dL Est Cr Clr Drug Dosing 48.39 mL/min Estimated GFR (MDRD) 53 L (>60) Glucose 119 H (74-106) mg/dL Lactic Acid 1.1 (0.4-2.0) mmol/L Calcium 8.8 (8.5-10.1) mg/dL Total Bilirubin 0.4 (0.2-1.0) mg/dL AST 23 (15-37) U/L ALT 27 (12-78) U/L Alkaline Phosphatase 81 (46-116) U/L C-Reactive Protein (0.0-0.3) mg/dL Total Protein 7.2 (6.4-8.2) g/dL Albumin 3.3 L (3.4-5.0) g/dL Globulin 3.9 H (2.3-3.5) g/dL Albumin/Globulin Ratio 0.9 L (1.2-2.2) Urine Color Urine Appearance Urine pH (4.5-8.0) Ur Specific [place] (1.008-1.030) Urine Protein (NEGATIVE) mg/dL Urine Glucose (UA) (NEGATIVE) mg/dL Urine Ketones (NEGATIVE) mg/dL Urine Occult Blood (NEGATIVE) Urine Nitrite (NEGATIVE) Urine Bilirubin (NEGATIVE) Urine Urobilinogen (NORMAL) mg/dL Ur Leukocyte Esterase (NEGATIVE) Urine RBC (0-5) Urine WBC (0-5) Ur Epithelial Cells Amorphous Sediment Urine Bacteria Urine Mucus 05/18/19 05/18/19 Range/Units 22:55 23:22 WBC (4.5-11.0) K/uL RBC (3.30-5.50) M/uL Hgb (12.0-15.0) g/dL Hct (36.0-48.0) % MCV (80-98) fL MCH (27-31) pg MCHC (32-36) % Plt Count (150-400) K/uL Neut % (Auto) (36-66) % Lymph % (Auto) (24-44) % [place] % (Auto) (2-6) % Eos % (Auto) (2-4) % Baso % (Auto) (0-1) % Sodium (140-148) mmol/L Potassium (3.6-5.2) mmol/L Chloride (100-108) mmol/L Carbon Dioxide (21-32) mmol/L Anion Gap (5.0-14.0) mmol/L BUN (7-18) mg/dL Creatinine (0.6-1.0) mg/dL Est Cr Clr Drug Dosing mL/min Estimated GFR (MDRD) (>60) Glucose (74-106) mg/dL Lactic Acid (0.4-2.0) mmol/L Calcium (8.5-10.1) mg/dL Total Bilirubin (0.2-1.0) mg/dL AST (15-37) U/L ALT (12-78) U/L Alkaline Phosphatase (46-116) U/L C-Reactive Protein 8.65 H (0.0-0.3) mg/dL Total Protein (6.4-8.2) g/dL Albumin (3.4-5.0) g/dL Globulin (2.3-3.5) g/dL Albumin/Globulin Ratio (1.2-2.2) Urine Color Yellow Urine Appearance Clear Urine pH 5.0 (4.5-8.0) Ur Specific [place] 1.020 (1.008-1.030) Urine Protein Negative (NEGATIVE) mg/dL Urine Glucose (UA) Normal (NEGATIVE) mg/dL Urine Ketones 15 H (NEGATIVE) mg/dL Urine Occult Blood Large (NEGATIVE) Urine Nitrite Negative (NEGATIVE) Urine Bilirubin Negative (NEGATIVE) Urine Urobilinogen Normal (NORMAL) mg/dL Ur Leukocyte Esterase Small (NEGATIVE) Urine RBC 5-10 H (0-5) Urine WBC 0-5 (0-5) Ur Epithelial Cells Moderate Amorphous Sediment Not seen Urine Bacteria Few Urine Mucus Not seen Result Diagrams: 05/18/19 22:45 05/18/19 22:45 Bennett Results Last 24 hrs: Microbiology 05/18/19 22:55 Influenza Type A Antigen Screen - Final Nasal Aspirate, Left NEGATIVE INFLUENZA A VIRUS AG REFERENCE RANGE: NEGATIVE Influenza Type B Antigen Screen - Final NEGATIVE INFLUENZA B VIRUS AG REFERENCE RANGE: NEGATIVE - Problem List (1) Left lower lobe pneumonia SNOMED Code(s): 754119019 ICD Code: J18.1 - LOBAR PNEUMONIA, UNSPECIFIED ORGANISM Status: Acute Priority: High Current Visit: Yes Qualifiers: Pneumonia type: due to unspecified organism Qualified Code(s): J18.1 - Lobar pneumonia, unspecified organism (2) Sleep apnea SNOMED Code(s): 68625832 ICD Code: G47.30 - SLEEP APNEA, UNSPECIFIED Status: Chronic Priority: Low Current Visit: Yes Qualifiers: Sleep apnea type: unspecified type Qualified Code(s): G47.30 - Sleep apnea , unspecified (3) Tobacco abuse SNOMED Code(s): 656450756 ICD Code: Z72.0 - TOBACCO USE Status: Chronic Priority: Low Current Visit: Yes Problem List Initiated/Reviewed/Updated: Yes Orders Last 24hrs: Active Orders 24 hr Category Date Time Status Patient Status Manage Transfer [TRANSFER] Routine ADT 05/19/19 00:44 Ordered CULTURE BLOOD [BC] Urgent Lab 05/18/19 22:45 Received CULTURE BLOOD [BC] Urgent Lab 05/18/19 22:55 Received Sodium Chloride 0.9% [Normal Saline] 1,000 ml Med 05/18/19 23:00 Active IV ASDIRECTED Sodium Chloride 0.9% [Normal Saline] 1,000 ml Med 05/19/19 00:30 Active IV ASDIRECTED Blood Culture x2 Reflex Set [OM.PC] Urgent Oth 05/18/19 22:47 Ordered Resuscitation Status Routine Resus Stat 05/19/19 00:46 Ordered Medication Orders Sodium Chloride (Normal Saline) 1,000 mls @ 999 mls/hr IV ASDIRECTED [facility] Last Admin: 05/18/19 23:15 Dose: 999 mls/hr Sodium Chloride (Normal Saline) 1,000 mls @ 999 mls/hr IV ASDIRECTED [facility] Last Admin: 05/19/19 00:38 Dose: 999 mls/hr Assessment/Plan Comment:: ASSESSMENT AND PLAN - Left lower lobe pneumonia - she also has current history of asthma, COPD, sleep apneaand bi polar This is a 48 year old female presents to ER for evaluation of fever and chills. She walked to the hospital from her house, upon arrival had a temp of 104. she reports being sick for 2 days with fever, chills and cough. Chest hurts to cough , has occasional yellow sputum in cough. Vital signs temp. 104 pulse 87 rr 18 B/P 115/53 O2 sat 94% on room air She has minimal symptoms of cough but Chest x-ray show airspace infiltrates present in the left lower lobe. infiltrate may also be present in the infrahilar region of the right lower lobe . upper lungs are clear. no effusion and no pneumothorax. She is not currently hypoxic. Labs WBC 21.4, hgb 11.8, hct 36.2, chemistries Na+137, K+ 4.0, cl 101, anion gp 14.0, BUN 20, cr 1.1, glucose 119, CRP 8.65, lactic acid 1.1, albumin 3.3, globulin 3.9, urine + Ketones, RBC 5-10, Influenza A and B negative, blood cultures x2 pending. -Antibiotic coverage with IV Zithromax 500 mg every 24 hours and IV ceftriaxone 1 gram every 24 hours -Solumedrol 125mg IV in ER, then IV Solumederol 62.5 mg every 6 hours -Robitussin AC 10 ml every 6 hours -Supplement oxygen if needed -blood cultures x 2 pending -am labs CBC, BMP Tobacco dependence - smokes about half pack a day. -Encourage cessation -declines patch Sleep apnea -continuous oxygen sat Maintenance issues - - DVT prophylaxis - enoxaparin 40 mg subcut - GI prophylaxis - PPI Protonix 40mg po daily - Nutrition - regular Gluten free - Perez catheter - not indicated -Spiritual declines CODE STATUS - full Admission justification - This patient will be admitted for inpatient services and is medically appropriate meeting medical necessity for inpatient admission as outlined in my documentation. I reasonably expect the patient will require inpatient services that span a period time over 2 midnights. I reasonably expect this patient to be discharged or transferred within 96 hours after admission to the [facility]. Disposition - anticipate discharge home after the hospital stay Primary care physician - Dr Johnson Sr Hospitalist: Duran Bowen M.D.
[2019-05-19] MEDS ORDERED: methylPREDNISolone Sodium Succinate 125 MG/2 ML SDV IVPUSH ONE (02:20)
[2019-05-19] MEDS ORDERED: oxyCODONE 5 MG Tab PO PRN (02:20)
[2019-05-19] MEDS ORDERED: LORazepam 2 MG/ML SDV IV PRN (02:20)
[2019-05-19] MEDS ORDERED: Ketorolac 30 MG/ML SDV IVPUSH PRN (02:20)
[2019-05-19] MEDS ORDERED: Morphine 2 MG/ML Syringe IVPUSH PRN (02:20)
[2019-05-19] MEDS ORDERED: Albuterol 0.083% 2.5 MG/3 ML Neb Soln NEB PRN (02:20)
[2019-05-19] MEDS ORDERED: Ibuprofen 600 MG Tab PO PRN (02:20)
[2019-05-19] MEDS ORDERED: Azithromycin 500 MG in Sodium Chloride 0.9% 250 ML IV ONE (03:00)
[2019-05-19] MEDS: Sodium Chloride 0.9% 1,000 ML IV SCH ×3 (03:25→20:10)
[2019-05-19] MEDS: Codeine/guaiFENesin 100mg-10 MG/5 ML Syrup 10 ML Cup PO SCH ×5 (03:25→22:00)
[2019-05-19] MEDS ORDERED: Ondansetron 4 MG/2 ML SDV IVPUSH PRN (03:40)
[2019-05-19] MEDS: Albuterol/Ipratropium 3.0-0.5 MG/3 ML Neb Soln NEB SCH ×4 (07:28→20:11)
[2019-05-19] MEDS: DULoxetine 30 MG Cap PO SCH (08:32)
[2019-05-19] MEDS: methylPREDNISolone Sodium Succinate 125 MG/2 ML SDV IVPUSH SCH ×3 (08:32→20:10)
[2019-05-19] MEDS: Pantoprazole 40 MG Tab.CR PO SCH (08:32)
[2019-05-19] MEDS: PARoxetine 20 MG Tab PO SCH (08:33)
[2019-05-19] MEDS: Enoxaparin 40 MG/0.4 ML Syringe SUBCUT SCH (08:34)
--- NOTE | 2019-05-19 09:06 | PCM.PN ---
- General Info Date of Service: 05/19/19 Subjective Update: There were no acute events overnight following admission. Temperature curve has improved since the emergency room presentation. She feels a little less short of breath today. Cough is now loose and intermittently productive. She does have some pleuritic type chest pain with deep breathing. Appetite is better today. White blood cell count is slightly higher than at presentation. Functional Status: Reports: Pain Controlled, Tolerating Diet - Review of Systems General: Reports: Fever Pulmonary: Reports: Pleuritic Chest Pain, Cough - Patient Data Vitals - Most Recent: Last Vital Signs Temp 36.1 C 05/19/19 07:00 Pulse 68 05/19/19 07:31 Resp 16 05/19/19 07:00 BP 91/55 L 05/19/19 07:00 Pulse Ox 97 05/19/19 07:31 Weight - Most Recent: 69.1 kg I&O - Last 24 Hours: Intake & Output 05/18/19 05/19/19 05/19/19 22:59 06:59 14:59 Intake Total 480 Balance 480 Lab Results Last 24 Hours: Laboratory Results - last 24 hr 05/18/19 05/18/19 05/18/19 Range/Units 22:45 22:45 22:55 WBC 21.1 H (4.5-11.0) K/uL RBC 3.85 (3.30-5.50) M/uL Hgb 11.8 L (12.0-15.0) g/dL Hct 36.2 (36.0-48.0) % MCV 94 (80-98) fL MCH 31 (27-31) pg MCHC 33 (32-36) % Plt Count 247 (150-400) K/uL Neut % (Auto) 88 H (36-66) % Lymph % (Auto) 6 L (24-44) % Mcdowell % (Auto) 6 (2-6) % Eos % (Auto) 0 L (2-4) % Baso % (Auto) 0 (0-1) % Sodium 137 L (140-148) mmol/L Potassium 4.0 (3.6-5.2) mmol/L Chloride 101 (100-108) mmol/L Carbon Dioxide 26 (21-32) mmol/L Anion Gap 14.0 (5.0-14.0) mmol/L BUN 20 H (7-18) mg/dL Creatinine 1.1 H (0.6-1.0) mg/dL Est Cr Clr Drug Dosing 48.39 mL/min Estimated GFR (MDRD) 53 L (>60) Glucose 119 H (74-106) mg/dL Lactic Acid 1.1 (0.4-2.0) mmol/L Calcium 8.8 (8.5-10.1) mg/dL Total Bilirubin 0.4 (0.2-1.0) mg/dL AST 23 (15-37) U/L ALT 27 (12-78) U/L Alkaline Phosphatase 81 (46-116) U/L C-Reactive Protein (0.0-0.3) mg/dL Total Protein 7.2 (6.4-8.2) g/dL Albumin 3.3 L (3.4-5.0) g/dL Globulin 3.9 H (2.3-3.5) g/dL Albumin/Globulin Ratio 0.9 L (1.2-2.2) Amylase (25-115) U/L Lipase (73-393) U/L Urine Color Urine Appearance Urine pH (4.5-8.0) Ur Specific Benton (1.008-1.030) Urine Protein (NEGATIVE) mg/dL Urine Glucose (UA) (NEGATIVE) mg/dL Urine Ketones (NEGATIVE) mg/dL Urine Occult Blood (NEGATIVE) Urine Nitrite (NEGATIVE) Urine Bilirubin (NEGATIVE) Urine Urobilinogen (NORMAL) mg/dL Ur Leukocyte Esterase (NEGATIVE) Urine RBC (0-5) Urine WBC (0-5) Ur Epithelial Cells Amorphous Sediment Urine Bacteria Urine Mucus 05/18/19 05/18/19 05/19/19 Range/Units 22:55 23:22 00:01 WBC (4.5-11.0) K/uL RBC (3.30-5.50) M/uL Hgb (12.0-15.0) g/dL Hct (36.0-48.0) % MCV (80-98) fL MCH (27-31) pg MCHC (32-36) % Plt Count (150-400) K/uL Neut % (Auto) (36-66) % Lymph % (Auto) (24-44) % Mcdowell % (Auto) (2-6) % Eos % (Auto) (2-4) % Baso % (Auto) (0-1) % Sodium (140-148) mmol/L Potassium (3.6-5.2) mmol/L Chloride (100-108) mmol/L Carbon Dioxide (21-32) mmol/L Anion Gap (5.0-14.0) mmol/L BUN (7-18) mg/dL Creatinine (0.6-1.0) mg/dL Est Cr Clr Drug Dosing mL/min Estimated GFR (MDRD) (>60) Glucose (74-106) mg/dL Lactic Acid (0.4-2.0) mmol/L Calcium (8.5-10.1) mg/dL Total Bilirubin (0.2-1.0) mg/dL AST (15-37) U/L ALT (12-78) U/L Alkaline Phosphatase (46-116) U/L C-Reactive Protein 8.65 H (0.0-0.3) mg/dL Total Protein (6.4-8.2) g/dL Albumin (3.4-5.0) g/dL Globulin (2.3-3.5) g/dL Albumin/Globulin Ratio (1.2-2.2) Amylase 36 (25-115) U/L Lipase 65 L (73-393) U/L Urine Color Yellow Urine Appearance Clear Urine pH 5.0 (4.5-8.0) Ur Specific [place] 1.020 (1.008-1.030) Urine Protein Negative (NEGATIVE) mg/dL Urine Glucose (UA) Normal (NEGATIVE) mg/dL Urine Ketones 15 H (NEGATIVE) mg/dL Urine Occult Blood Large (NEGATIVE) Urine Nitrite Negative (NEGATIVE) Urine Bilirubin Negative (NEGATIVE) Urine Urobilinogen Normal (NORMAL) mg/dL Ur Leukocyte Esterase Small (NEGATIVE) Urine RBC 5-10 H (0-5) Urine WBC 0-5 (0-5) Ur Epithelial Cells Moderate Amorphous Sediment Not seen Urine Bacteria Few Urine Mucus Not seen 05/19/19 05/19/19 Range/Units 06:02 06:02 WBC 25.5 H (4.5-11.0) K/uL RBC 3.47 (3.30-5.50) M/uL Hgb 10.8 L (12.0-15.0) g/dL Hct 32.9 L (36.0-48.0) % MCV 95 (80-98) fL MCH 31 (27-31) pg MCHC 33 (32-36) % Plt Count 239 (150-400) K/uL Neut % (Auto) 91 H (36-66) % Lymph % (Auto) 5 L (24-44) % Mcdowell % (Auto) 5 (2-6) % Eos % (Auto) 0 L (2-4) % Baso % (Auto) 0 (0-1) % Sodium 141 (140-148) mmol/L Potassium 4.5 (3.6-5.2) mmol/L Chloride 108 (100-108) mmol/L Carbon Dioxide 25 (21-32) mmol/L Anion Gap 7.6 (5.0-14.0) mmol/L BUN 18 (7-18) mg/dL Creatinine 1.0 (0.6-1.0) mg/dL Est Cr Clr Drug Dosing 53.23 mL/min Estimated GFR (MDRD) 59 L (>60) Glucose 144 H (74-106) mg/dL Lactic Acid (0.4-2.0) mmol/L Calcium 8.1 L (8.5-10.1) mg/dL Total Bilirubin (0.2-1.0) mg/dL AST (15-37) U/L ALT (12-78) U/L Alkaline Phosphatase (46-116) U/L C-Reactive Protein (0.0-0.3) mg/dL Total Protein (6.4-8.2) g/dL Albumin (3.4-5.0) g/dL Globulin (2.3-3.5) g/dL Albumin/Globulin Ratio (1.2-2.2) Amylase (25-115) U/L Lipase (73-393) U/L Urine Color Urine Appearance Urine pH (4.5-8.0) Ur Specific Benton (1.008-1.030) Urine Protein (NEGATIVE) mg/dL Urine Glucose (UA) (NEGATIVE) mg/dL Urine Ketones (NEGATIVE) mg/dL Urine Occult Blood (NEGATIVE) Urine Nitrite (NEGATIVE) Urine Bilirubin (NEGATIVE) Urine Urobilinogen (NORMAL) mg/dL Ur Leukocyte Esterase (NEGATIVE) Urine RBC (0-5) Urine WBC (0-5) Ur Epithelial Cells Amorphous Sediment Urine Bacteria Urine Mucus Bennett Results Last 24 Hours: Microbiology 05/18/19 22:55 Influenza Type A Antigen Screen - Final Nasal Aspirate, Left NEGATIVE INFLUENZA A VIRUS AG REFERENCE RANGE: NEGATIVE Influenza Type B Antigen Screen - Final NEGATIVE INFLUENZA B VIRUS AG REFERENCE RANGE: NEGATIVE Med Orders - Current: Current Medications Acetaminophen (Tylenol) 650 mg PO Q4H PRN PRN Reason: Pain (Mild 1-3)/fever Albuterol (Proventil Neb Soln) 2.5 mg NEB Q4H PRN PRN Reason: Shortness Of Breath/wheezing Albuterol/Ipratropium (Duoneb 3.0-0.5 Mg/3 Ml) 3 ml NEB QIDRT [facility] Last Admin: 05/19/19 07:28 Dose: 3 ml Duloxetine HCl (Cymbalta) 60 mg PO DAILY [facility] Last Admin: 05/19/19 08:32 Dose: 60 mg Enoxaparin Sodium (Lovenox) 40 mg SUBCUT DAILY [facility] Last Admin: 05/19/19 08:34 Dose: 40 mg Guaifenesin/Codeine Phosphate (Robitussin Ac) 10 ml PO Q6H [facility] Last Admin: 05/19/19 08:42 Dose: 10 ml Azithromycin 500 mg/ Sodium (Chloride) 250 mls @ 250 mls/hr IV Q24H [facility] Ceftriaxone Sodium 1 gm/ (Sodium Chloride) 50 mls @ 100 mls/hr IV Q24H [facility] Sodium Chloride (Normal Saline) 1,000 mls @ 125 mls/hr IV ASDIRECTED [facility] Last Admin: 05/19/19 03:25 Dose: 125 mls/hr Ibuprofen (Motrin) 600 mg PO Q6H PRN PRN Reason: Pain/Fever Ketorolac Tromethamine (Toradol) 30 mg IVPUSH Q6H PRN PRN Reason: Pain (moderate 4-6) Lorazepam (Ativan) 1 mg IV Q6H PRN PRN Reason: Nausea/Vomiting Methylprednisolone Sodium Succinate (Solu-Medrol) 62.5 mg IVPUSH Q6H [facility] Last Admin: 05/19/19 08:32 Dose: 62.5 mg Morphine Sulfate (Morphine) 2 mg IVPUSH Q2H PRN PRN Reason: Pain (severe 7-10) Ondansetron HCl (Zofran) 4 mg IVPUSH Q4H PRN PRN Reason: Nausea/Vomiting Last Admin: 05/19/19 03:52 Dose: 4 mg Oxycodone HCl (Oxycodone) 5 mg PO Q4H PRN PRN Reason: Pain (moderate 4-6) Pantoprazole Sodium (Protonix) 40 mg PO DAILY@0730 [facility] Last Admin: 05/19/19 08:32 Dose: 40 mg Paroxetine HCl (Paxil) 10 mg PO DAILY [facility] Last Admin: 05/19/19 08:33 Dose: 10 mg Senna/Docusate Sodium (Senna Plus) 1 tab PO DAILY PRN PRN Reason: Constipation Discontinued Medications Acetaminophen (Tylenol) 650 mg PO NOW ONE Stop: 05/18/19 22:50 Last Admin: 05/18/19 22:59 Dose: 650 mg Sodium Chloride (Normal Saline) 1,000 mls @ [facility] Admin: 05/18/19 23:15 Dose: 999 mls/hr Ceftriaxone Sodium 1 gm/ (Sodium Chloride) 50 mls @ 100 mls/hr IV ONETIME ONE Stop: 05/19/19 00:47 Last Admin: 05/19/19 00:37 Dose: 100 mls/hr Sodium Chloride (Normal Saline) 1,000 mls @ 999 [facility] Admin: 05/19/19 00:38 Dose: 999 mls/hr Azithromycin 500 mg/ Sodium (Chloride) 250 mls @ 250 mls/hr IV ONETIME ONE Stop: 05/19/19 03:59 Last Admin: 05/19/19 03:25 Dose: 250 mls/hr Ketorolac Tromethamine (Toradol) 30 mg IVPUSH ONETIME ONE Stop: 05/18/19 22:49 Last Admin: 05/18/19 23:14 Dose: 30 mg Methylprednisolone Sodium Succinate (Solu-Medrol) 125 mg IVPUSH ONETIME ONE Stop: 05/19/19 02:21 Last Admin: 05/19/19 03:25 Dose: 125 mg - Exam Quality Assessment: No: Supplemental Oxygen General: Alert, Oriented, Cooperative, No Acute Distress Lungs: Normal Respiratory Effort, Crackles (left lung base). No: Wheezing Cardiovascular: Regular Rate, Regular Rhythm GI/Abdominal Exam: Soft, No Distention Extremities: No Pedal Edema. No: Increased Warmth Skin: Warm, Dry Psy/Mental Status: Alert, Normal Affect - Problem List Review Problem List Initiated/Reviewed/Updated: Yes - My Orders Last 24 Hours: My Active Orders 05/20/19 07:30 predniSONE 20 mg PO BIDAC - Plan Plan:: ASSESSMENT AND PLAN - Bilateral pneumonia - not needing supplemental oxygen at this time. High fever last night but temperature normal today. Shortness of breath is a little better. Not currently requiring supplemental oxygen. White blood cell count slightly higher but could be steroid effect. -Antibiotic coverage with ceftriaxone and azithromycin -IV steroids today then transition to prednisone -Robitussin AC 10 ml every 6 hours -Supplement oxygen if needed -Follow-up cultures -CBC in the morning Tobacco dependence - smokes about half pack a day. -Encourage cessation -declines patch Sleep apnea - stable Maintenance issues - - DVT prophylaxis - enoxaparin 40 mg subcut - GI prophylaxis - PPI Protonix 40mg po daily - Nutrition - regular Gluten free - Perez catheter - not indicated Disposition - anticipate discharge home after the hospital stay, maybe in the next day or 2 Primary care physician - Dr Johnson Bowen M.D.
[2019-05-19] MEDS: Acetaminophen 325 MG Tab PO PRN (18:21)
[2019-05-19] MEDS ORDERED: cefTRIAXone 1 GM in Sodium Chloride 0.9% 50 ML IV SCH (21:00)
[2019-05-19] MEDS ORDERED: Azithromycin 500 MG in Sodium Chloride 0.9% 250 ML IV SCH (22:00)
[2019-05-20] MEDS: Codeine/guaiFENesin 100mg-10 MG/5 ML Syrup 10 ML Cup PO SCH (04:44)
[2019-05-20] MEDS: Acetaminophen 325 MG Tab PO PRN (05:21)
[2019-05-20] MEDS: Sodium Chloride 0.9% 1,000 ML IV SCH (05:34)
[2019-05-20] MEDS: Albuterol/Ipratropium 3.0-0.5 MG/3 ML Neb Soln NEB SCH (07:16)
[2019-05-20] MEDS ORDERED: predniSONE 20 MG Tab PO SCH (07:30)
[2019-05-20] MEDS: Pantoprazole 40 MG Tab.CR PO SCH (08:00)
[2019-05-20] MEDS: DULoxetine 30 MG Cap PO SCH (08:55)
[2019-05-20] MEDS: Enoxaparin 40 MG/0.4 ML Syringe SUBCUT SCH (08:55)
[2019-05-20] MEDS: PARoxetine 20 MG Tab PO SCH (08:55)
[2019-05-20 09:14] VITALS: BP 119/60
[2019-05-20] MEDS ORDERED: Codeine/guaiFENesin 100mg-10 MG/5 ML Syrup 10 ML Cup PO SCH (10:00)
--- NOTE | 2019-05-20 10:16 | PCM.DCSUM1 ---
Discharge Summary - Hospital Course Brief History: Ms. Landaverde is a 48-year-old woman who presented to the emergency department with shortness of breath, cough, fever, and weakness secondary to left lower lobe pneumonia. - Discharge Data Discharge Date: 05/20/19 Discharge Disposition: Home, Self-Care 01 Condition: Stable - Discharge Diagnosis/Problem(s) (1) Left lower lobe pneumonia SNOMED Code(s): 197428364 ICD Code: J18.1 - LOBAR PNEUMONIA, UNSPECIFIED ORGANISM Status: Acute Priority: High Current Visit: Yes Qualifiers: Pneumonia type: due to unspecified organism Qualified Code(s): J18.1 - Lobar pneumonia, unspecified organism (2) Dehydration SNOMED Code(s): 49717822 ICD Code: E86.0 - DEHYDRATION Status: Acute Current Visit: Yes (3) Sleep apnea SNOMED Code(s): 14532168 ICD Code: G47.30 - SLEEP APNEA, UNSPECIFIED Status: Chronic Priority: Low Current Visit: Yes Qualifiers: Sleep apnea type: unspecified type Qualified Code(s): G47.30 - Sleep apnea , unspecified - Patient Summary/Data Hospital Course: Ms. Landaverde is a 48 year old female presented to ER for evaluation of fever and chills. She walked to the hospital from her house, upon arrival had a temp of 104. She reports being sick for 2 days with fever, chills and cough. Chest hurts to cough, has occasional yellow sputum in cough. On evaluation in the emergency department white blood cell count was found to be elevated and chest x -ray showed left lower lung infiltrate. Blood and sputum cultures were obtained , antibiotic therapy initiated with ceftriaxone and azithromycin. Because of expiratory wheezing she was treated with IV Solu-Medrol. She improved quickly and by the time of discharge been afebrile over 24 hours and was off of supplemental oxygen. White blood cell count remained elevated, this was thought secondary to current glucocorticoid therapy. She will be discharged home on an additional 4 days of oral antibiotic therapy with Cefdnir. 2-D will be as tolerated and she will resume her usual diet. Follow-up appointment will be scheduled with her primary care provider within one week. Chest x-ray should be obtained at the time of follow-up appointment to assure resolution of the infiltrate. - Patient Instructions Diet: Usual Diet as Tolerated Activity: As Tolerated Other/Special Instructions: Please schedule follow-up appointment with primary care provider within one week. - Discharge Plan *PRESCRIPTION DRUG MONITORING PROGRAM REVIEWED*: Not Applicable *COPY OF PRESCRIPTION DRUG MONITORING REPORT IN PATIENT MICHAEL: Not Applicable Prescriptions/Med Rec: Cefdinir [Omnicef] 300 mg PO BID #8 cap Home Medications: Home Meds Multivitamin [Multivitamins] 1 tab PO DAILY 09/22/15 [History] Albuterol Sulfate [Proair Respiclick] 2 puff IH QID PRN 10/05/15 [History] tiZANidine HCl [Zanaflex] 1 - 2 tab PO BEDTIME PRN 10/05/15 [History] hydrOXYzine pamoate [Hydroxyzine Pamoate] 25 mg PO TID PRN 07/15/18 [History] Budesonide/Formoterol [Symbicort 80-4.5 MCG] 2 puff IH BID 11/13/18 [History] Cholecalciferol (Vitamin D3) [Vitamin D3] 2,000 units PO DAILY 11/13/18 [History ] DULoxetine [Cymbalta] 60 mg PO DAILY 11/13/18 [History] Fluticasone Propionate [Flonase] 2 sprays EVELIA DAILY 11/13/18 [History] PARoxetine [Paxil] 10 mg PO DAILY 11/13/18 [History] Pantoprazole Sodium [Protonix] 40 mg PO DAILY 11/13/18 [History] Umeclidinium Brm/Vilanterol Tr [Anoro Ellipta 62.5-25 MCG] 1 puff IH DAILY 11/13 [History] Nicotine [Habitrol] 1 patch TOP DAILY 12/04/18 [History] Nicotine [Nicotrol] 1 puff INH ASDIRECTED PRN 12/04/18 [History] Sennosides/Docusate Sodium [Senokot-S Tablet] 1 - 2 tab PO DAILY PRN 12/04/18 [ History] Triamcinolone Acetonide [Kenalog 0.1% Crm] 1 applic TOP BID 12/04/18 [History] Pregabalin [Lyrica] 1 cap PO BID 03/23/19 [History] Vitamin B Complex [B Complex] 1,000 mcg SL DAILY 03/23/19 [History] Cefdinir [Omnicef] 300 mg PO BID #8 cap 05/20/19 [Rx] Patient Handouts: Community-Acquired Pneumonia, Adult, [id number] Referrals: Johnson Sr MD [Primary Care Provider] - 05/27/19 1:00 pm (Please arrive 15 minutes ealry to register for your appointment.) - Discharge Summary/Plan Comment DC Time >30 min.: No - Patient Data Vitals - Most Recent: Last Vital Signs Temp 98.6 F 05/20/19 08:00 Pulse 87 05/20/19 08:00 Resp 20 05/20/19 08:00 BP 119/60 05/20/19 08:00 Pulse Ox 98 05/20/19 08:00 Weight - Most Recent: 152 lb 5.431 oz I&O - Last 24 hours: Intake & Output 05/19/19 05/20/19 05/20/19 22:59 06:59 14:59 Intake Total 3212 450 Balance 3212 450 Lab Results - Last 24 hrs: Laboratory Results - last 24 hr 05/20/19 05/20/19 Range/Units 08:32 08:32 WBC 29.8 H (4.5-11.0) K/uL RBC 3.27 L (3.30-5.50) M/uL Hgb 10.2 L (12.0-15.0) g/dL Hct 31.5 L (36.0-48.0) % MCV 96 (80-98) fL MCH 31 (27-31) pg MCHC 32 (32-36) % Plt Count 251 (150-400) K/uL Neut % (Auto) 91 H (36-66) % Lymph % (Auto) 5 L (24-44) % [place] % (Auto) 4 (2-6) % Eos % (Auto) 0 L (2-4) % Baso % (Auto) 0 (0-1) % Sodium 143 (140-148) mmol/L Potassium 3.8 (3.6-5.2) mmol/L Chloride 110 H (100-108) mmol/L Carbon Dioxide 22 (21-32) mmol/L Anion Gap 14.8 H (5.0-14.0) mmol/L BUN 16 (7-18) mg/dL Creatinine 0.9 (0.6-1.0) mg/dL Est Cr Clr Drug Dosing 59.15 mL/min Estimated GFR (MDRD) > 60 (>60) Glucose 169 H (74-106) mg/dL Calcium 8.2 L (8.5-10.1) mg/dL [place] Results - Last 24 hrs: Microbiology 05/18/19 22:55 Aerobic Blood Culture - Preliminary Blood - Arm, Left NO GROWTH AFTER 1 DAY Anaerobic Blood Culture - Preliminary NO GROWTH AFTER 1 DAY 05/18/19 22:45 Aerobic Blood Culture - Preliminary Blood - Arm, Right NO GROWTH AFTER 1 DAY Anaerobic Blood Culture - Preliminary NO GROWTH AFTER 1 DAY Med Orders - Current: Current Medications Acetaminophen (Tylenol) 650 mg PO Q4H PRN PRN Reason: Pain (Mild 1-3)/fever Last Admin: 05/20/19 05:21 Dose: 650 mg Albuterol (Proventil Neb Soln) 2.5 mg NEB Q4H PRN PRN Reason: Shortness Of Breath/wheezing Albuterol/Ipratropium (Duoneb 3.0-0.5 Mg/3 Ml) 3 ml NEB QIDRT [facility] Last Admin: 05/20/19 07:16 Dose: 3 ml Duloxetine HCl (Cymbalta) 60 mg PO DAILY [facility] Last Admin: 05/20/19 08:55 Dose: 60 mg Enoxaparin Sodium (Lovenox) 40 mg SUBCUT DAILY [facility] Last Admin: 05/20/19 08:55 Dose: 40 mg Guaifenesin/Codeine Phosphate (Robitussin Ac) 10 ml PO Q6H [facility] Azithromycin 500 mg/ Sodium (Chloride) 250 mls @ 250 mls/hr IV Q24H [facility] Last Admin: 05/19/19 22:00 Dose: 250 mls/hr Ceftriaxone Sodium 1 gm/ (Sodium Chloride) 50 mls @ 100 mls/hr IV Q24H [facility] Last Admin: 05/19/19 20:11 Dose: 100 mls/hr Sodium Chloride (Normal Saline) 1,000 mls @ 125 mls/hr IV ASDIRECTED [facility] Last Admin: 05/20/19 05:34 Dose: 125 mls/hr Ibuprofen (Motrin) 600 mg PO Q6H PRN PRN Reason: Pain/Fever Ketorolac Tromethamine (Toradol) 30 mg IVPUSH Q6H PRN PRN Reason: Pain (moderate 4-6) Stop: 05/24/19 02:21 Lorazepam (Ativan) 1 mg IV Q6H PRN PRN Reason: Nausea/Vomiting Morphine Sulfate (Morphine) 2 mg IVPUSH Q2H PRN PRN Reason: Pain (severe 7-10) Ondansetron HCl (Zofran) 4 mg IVPUSH Q4H PRN PRN Reason: Nausea/Vomiting Last Admin: 05/19/19 03:52 Dose: 4 mg Oxycodone HCl (Oxycodone) 5 mg PO Q4H PRN PRN Reason: Pain (moderate 4-6) Pantoprazole Sodium (Protonix) 40 mg PO DAILY@0730 [facility] Last Admin: 05/20/19 08:00 Dose: 40 mg Paroxetine HCl (Paxil) 10 mg PO DAILY [facility] Last Admin: 05/20/19 08:55 Dose: 10 mg Prednisone (Prednisone) 20 mg PO BIDAC [facility] Last Admin: 05/20/19 08:00 Dose: 20 mg Senna/Docusate Sodium (Senna Plus) 1 tab PO DAILY PRN PRN Reason: Constipation Discontinued Medications Acetaminophen (Tylenol) 650 mg PO NOW ONE Stop: 05/18/19 22:50 Last Admin: 05/18/19 22:59 Dose: 650 mg Guaifenesin/Codeine Phosphate (Robitussin Ac) 10 ml PO Q6H [facility] Last Admin: 05/20/19 04:44 Dose: 10 ml Sodium Chloride (Normal Saline) 1,000 mls @ 999 mls[facility] Last Admin: 05/18/19 23:15 Dose: 999 mls/hr Ceftriaxone Sodium 1 gm/ (Sodium Chloride) 50 mls @ 100 mls/hr IV ONETIME ONE Stop: 05/19/19 00:47 Last Admin: 05/19/19 00:37 Dose: 100 mls/hr Sodium Chloride (Normal Saline) 1,000 mls @ 999 mls/[facility] Last Admin: 05/19/19 00:38 Dose: 999 mls/hr Azithromycin 500 mg/ Sodium (Chloride) 250 mls @ 250 mls/hr IV ONETIME ONE Stop: 05/19/19 03:59 Last Admin: 05/19/19 03:25 Dose: 250 mls/hr Ketorolac Tromethamine (Toradol) 30 mg IVPUSH ONETIME ONE Stop: 05/18/19 22:49 Last Admin: 05/18/19 23:14 Dose: 30 mg Methylprednisolone Sodium Succinate (Solu-Medrol) 125 mg IVPUSH ONETIME ONE Stop: 05/19/19 02:21 Last Admin: 05/19/19 03:25 Dose: 125 mg Methylprednisolone Sodium Succinate (Solu-Medrol) 62.5 mg IVPUSH Q6H [facility] Stop: 05/19/19 20:01 Last Admin: 05/19/19 20:10 Dose: 62.5 mg - Exam General: Reports: Alert, Oriented, Cooperative, No Acute Distress Lungs: Reports: Clear to Auscultation, Normal Respiratory Effort, Decreased Breath Sounds Cardiovascular: Reports: Regular Rate, Regular Rhythm, No Murmurs GI/Abdominal Exam: Soft, Non-Tender, No Organomegaly, No Distention
== END 2019-05-20 10:53 | disposition home or self-care (01) | DRG 194 ==
LOC: JP.ED 22:08 → JP.ICU 05-19 00:44
PROVIDERS: ADMIT Internal Medicine; ATTEND Hospitalist
DX: J18.1 Lobar pneumonia, unspecified organism (principal); J44.0 Chronic obstructive pulmonary disease with (acute) lower respiratory infection; E86.0 Dehydration; M19.90 Unspecified osteoarthritis, unspecified site; M79.7 Fibromyalgia; M54.2 Cervicalgia; G62.9 Polyneuropathy, unspecified; R56.9 Unspecified convulsions; R42 Dizziness and giddiness; F41.9 Anxiety disorder, unspecified; F31.9 Bipolar disorder, unspecified; F03.90 Unspecified dementia, unspecified severity, without behavioral disturbance, psychotic disturbance, mood disturbance, and anxiety; F43.10 Post-traumatic stress disorder, unspecified; G89.4 Chronic pain syndrome; E53.8 Deficiency of other specified B group vitamins; F17.210 Nicotine dependence, cigarettes, uncomplicated; H54.7 Unspecified visual loss; E78.00 Pure hypercholesterolemia, unspecified; G47.30 Sleep apnea, unspecified; K59.09 Other constipation; K52.9 Noninfective gastroenteritis and colitis, unspecified; K21.9 Gastro-esophageal reflux disease without esophagitis; Z87.442 Personal history of urinary calculi; Z88.2 Allergy status to sulfonamides; Z88.8 Allergy status to other drugs, medicaments and biological substances; Z91.040 Latex allergy status; Z79.899 Other long term (current) drug therapy; Z85.41 Personal history of malignant neoplasm of cervix uteri; Z87.01 Personal history of pneumonia (recurrent); Z90.710 Acquired absence of both cervix and uterus; R50.9 Fever, unspecified; R09.3 Abnormal sputum; R05 Cough; R06.02 Shortness of breath; R53.1 Weakness
CPT/HCPCS: 36415; 71046; 80053; 81001; 82150; 83605; 83690; 85025; 86140; 87040 ×2; 87804 ×2; 96361; 96374; 99284; A9270; J0696; J1885; J7030 ×2; J7050; 80048; 94640; J0456; J1650; J2405; J2930; J7620-GY

== ENCOUNTER 2019-06-03 15:03 | Observation (INO) | payer MEDICARE, MEDICAID ==
[2019-06-03] MEDS ORDERED: Sodium Chloride 0.9% 10 ML Syringe FLUSH PRN (15:04)
--- NOTE | 2019-06-03 15:18 | EDM.PDOC ---
ED HPI GENERAL MEDICAL PROBLEM - General Chief Complaint: Chest Pain Stated Complaint: CHEST PAIN Time Seen by Provider: 06/03/19 15:10 Source of Information: Reports: Patient, EMS History Limitations: Reports: Other (under influence of marijuana) - History of Present Illness INITIAL COMMENTS - FREE TEXT/NARRATIVE: Brought in by ambulance CC: chest pain; right sided Per family, she has been dizzy, almost "passing out"; feels hazy. Her heart rate is running in the mid 40's; and c/t her last hospitalization, her HR was in the 70-80's. She is very drowsy; i am told that she just smoked some marijuana. Reviewing patient records she had pneumonia 2 weeks ago and was hospitalized; discharged 05/19. She has a hx of Bipolar, asthma, COPD. 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) Anterior Chest Pain Score (Numeric/FACES): 5 - Related Data Allergies Allergy/AdvReac Type Severity Reaction Status Date / Time latex Allergy Hives Verified 06/03/19 15:35 Sulfa (Sulfonamide Allergy Rash Verified 06/03/19 15:35 Antibiotics) topiramate [From Topamax] Allergy Cannot Verified 06/03/19 15:35 Remember Home Meds: Home Meds Multivitamin [Multivitamins] 1 tab PO DAILY 09/22/15 [History] Albuterol Sulfate [Proair Respiclick] 2 puff IH QID PRN 10/05/15 [History] tiZANidine HCl [Zanaflex] 1 - 2 tab PO BEDTIME PRN 10/05/15 [History] hydrOXYzine pamoate [Hydroxyzine Pamoate] 25 mg PO TID PRN 07/15/18 [History] Budesonide/Formoterol [Symbicort 80-4.5 MCG] 2 puff IH BID 11/13/18 [History] Cholecalciferol (Vitamin D3) [Vitamin D3] 2,000 units PO DAILY 11/13/18 [History ] DULoxetine [Cymbalta] 60 mg PO DAILY 11/13/18 [History] Fluticasone Propionate [Flonase] 2 sprays EVELIA DAILY 11/13/18 [History] PARoxetine [Paxil] 10 mg PO DAILY 11/13/18 [History] Pantoprazole Sodium [Protonix] 40 mg PO DAILY 11/13/18 [History] Umeclidinium Brm/Vilanterol Tr [Anoro Ellipta 62.5-25 MCG] 1 puff IH DAILY 11/13 [History] Nicotine [Habitrol] 1 patch TOP DAILY 12/04/18 [History] Nicotine [Nicotrol] 1 puff INH ASDIRECTED PRN 12/04/18 [History] Sennosides/Docusate Sodium [Senokot-S Tablet] 1 - 2 tab PO DAILY PRN 12/04/18 [ History] Pregabalin [Lyrica] 75 mg PO BID 03/23/19 [History] Vitamin B Complex [B Complex] 100 mg PO DAILY 03/23/19 [History] Albuterol/Ipratropium [DuoNeb 3.0-0.5 MG/3 ML] 3 ml INH Q6H PRN 05/28/19 [ History] Calcium Citrate/Vitamin D3 [Calcium Citrate + D] 1 tab PO BID 05/28/19 [History] Past Medical History HEENT History: Reports: Allergic Rhinitis, Impaired Vision, Macular Degeneration , Retinal Detachment, Sinusitis Cardiovascular History: Reports: CAD, High Cholesterol Other Cardiovascular History: Carotid artery blockage. 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 left elbow pain Neurological History: Reports: Concussion, Headaches, Chronic, Head Trauma, Migraines, Neuropathy, Peripheral, Seizure, Vertigo Other Neuro History: lymes hx Psychiatric History: Reports: Anxiety, Bipolar, Dementia, Depression, Emotional Problems, Learning Disability, Panic Attack, Psych Hospitalization(s), PTSD, Suicide Attempt, Suicidal Ideation Other Psychiatric History: chronic pain syndrome Endocrine/Metabolic History: Reports: None Hematologic History: Reports: B12 Deficiency, Folic Acid Immunologic History: Reports: None Oncologic (Cancer) History: Reports: Cervix Dermatologic History: Reports: None - Infectious Disease History Infectious Disease History: Reports: Chicken Pox - Past Surgical History Head Surgeries/Procedures: Reports: None HEENT Surgical History: Reports: Tonsillectomy Other HEENT Surgeries/Procedures: "tonsils grew back" Cardiovascular Surgical History: Reports: None Respiratory Surgical History: Reports: None GI Surgical History: Reports: EGD, Hernia, Abdominal, Samson Fundoplication Other GI Surgeries/Procedures: partial gastrectomy Female Surgical History: Reports: Section, Hysterectomy, Salpingo- Oophorectomy Neurological Surgical History: Reports: None Musculoskeletal Surgical History: Reports: Other (See Below) Other Musculoskeletal Surgeries/Procedures:: Elbow surgery Oncologic Surgical History: Reports: Other (See Below) Other Oncologic Surgeries/Procedures: Hysterectomy Dermatological Surgical History: Reports: None Social & Family History - Family History Family Medical History: Noncontributory - Caffeine Use Caffeine Use: Reports: Coffee, Soda, Tea Caffeine Use Comment: seldom - Living Situation & Occupation Living situation: Reports: Occupation: Unemployed (lives in alone in [place]. Children all grown, one lives in [place], one live in [place] and 1 in [place].) ED ROS GENERAL - Review of Systems Review Of Systems: See Below (patient is under the influence of marijuana; very sleepy.) Constitutional: Reports: No Symptoms Respiratory: Reports: No Symptoms Cardiovascular: Reports: Chest Pain GI/Abdominal: Reports: No Symptoms Musculoskeletal: Reports: No Symptoms Skin: Reports: No Symptoms Neurological: Reports: No Symptoms ED EXAM, GENERAL - Physical Exam Exam: See Below Exam Limited By: No Limitations General Appearance: Alert, WD/WN, No Apparent Distress Head: Atraumatic, Normocephalic Neck: Normal Inspection, Supple, Non-Tender, Full Range of Motion Respiratory/Chest: Lungs Clear, Normal Breath Sounds Cardiovascular: Regular Rate, Rhythm GI/Abdominal: Normal Bowel Sounds Back Exam: Normal Inspection, Full Range of Motion Extremities: Normal Inspection, Normal Range of Motion Neurological: Slow to Respond, Other (sleepy; falls asleep while talking) Psychiatric: Flat Affect Skin Exam: Warm, Dry EKG INTERPRETATION EKG Date: 06/03/19 Time: 15:17 Rhythm: Other (sinus bradycardia) Rate (Beats/Min): 49 Comparison: NA - No Prior EKG EKG Interpretation Comments: No acute ST T wave changes. Course - Vital Signs Last Recorded V/S: Last Vital Signs Temp 97.6 F 06/03/19 15:41 Pulse 42 L 06/03/19 17:32 Resp 17 06/03/19 17:32 BP 106/58 L 06/03/19 17:32 Pulse Ox 99 06/03/19 17:32 - Orders/Labs/Meds Orders: Active Orders 24 hr Category Date Time Status EKG Documentation Completion [RC] ASDIRECTED Care 06/03/19 15:04 Active Peripheral IV Care [RC] . DIRECTED Care 06/03/19 15:04 Active Sodium Chloride 0.9% [Normal Saline] 1,000 ml Med 06/03/19 16:00 Active IV ASDIRECTED Sodium Chloride 0.9% [Normal Saline] 1,000 ml Med 06/03/19 18:45 Active IV ASDIRECTED Sodium Chloride 0.9% [Saline Flush] Med 06/03/19 15:04 Active 10 ml FLUSH ASDIRECTED PRN Peripheral IV Insertion Adult [OM.PC] Stat Oth 06/03/19 15:04 Ordered EKG 12 Lead [EK] Routine Ther 06/03/19 15:04 Ordered Medication Orders Sodium Chloride (Normal Saline) 1,000 mls @ 1,000 mls/hr IV ASDIRECTED DOT Last Admin: 06/03/19 16:01 Dose: 1,000 mls/hr Sodium Chloride (Normal Saline) 1,000 mls @ 150 mls/hr IV ASDIRECTED DOT Sodium Chloride (Saline Flush) 10 ml FLUSH ASDIRECTED PRN PRN Reason: Keep Vein Open Labs: Laboratory Tests 06/03/19 06/03/19 06/03/19 Range/Units 15:16 15:16 18:03 WBC 12.6 H (4.5-11.0) K/uL RBC 3.50 (3.30-5.50) M/uL Hgb 10.5 L (12.0-15.0) g/dL Hct 33.9 L (36.0-48.0) % MCV 97 (80-98) fL MCH 30 (27-31) pg MCHC 31 L (32-36) % Plt Count 241 (150-400) K/uL Neut % (Auto) 74 H (36-66) % Lymph % (Auto) 17 L (24-44) % [place] % (Auto) 8 H (2-6) % Eos % (Auto) 2 (2-4) % Baso % (Auto) 0 (0-1) % Sodium 141 (140-148) mmol/L Potassium 4.1 (3.6-5.2) mmol/L Chloride 105 (100-108) mmol/L Carbon Dioxide 31 (21-32) mmol/L Anion Gap 5.4 (5.0-14.0) mmol/L BUN 16 (7-18) mg/dL Creatinine 1.1 H (0.6-1.0) mg/dL Est Cr Clr Drug Dosing 48.39 mL/min Estimated GFR (MDRD) 53 L (>60) Glucose 111 H (74-106) mg/dL Calcium 8.2 L (8.5-10.1) mg/dL Total Bilirubin 0.2 (0.2-1.0) mg/dL AST 18 (15-37) U/L ALT 25 (12-78) U/L Alkaline Phosphatase 72 (46-116) U/L CK-MB (CK-2) 1.0 (0-3.6) mg/mL Troponin I < 0.017 (0.000-0.056) ng/mL Total Protein 6.1 L (6.4-8.2) g/dL Albumin 3.0 L (3.4-5.0) g/dL Globulin 3.1 (2.3-3.5) g/dL Albumin/Globulin Ratio 1.0 L (1.2-2.2) Urine Color Yellow Urine Appearance Clear Urine pH 7.0 (4.5-8.0) Ur Specific [place] 1.005 L (1.008-1.030) Urine Protein Negative (NEGATIVE) mg/dL Urine Glucose (UA) Normal (NEGATIVE) mg/dL Urine Ketones Negative (NEGATIVE) mg/dL Urine Occult Blood Trace (NEGATIVE) Urine Nitrite Negative (NEGATIVE) Urine Bilirubin Negative (NEGATIVE) Urine Urobilinogen Normal (NORMAL) mg/dL Ur Leukocyte Esterase Trace (NEGATIVE) Urine RBC 0-5 (0-5) Urine WBC 0-5 (0-5) Ur Epithelial Cells Rare Amorphous Sediment Not seen Urine Bacteria Not seen Urine Mucus Not seen Urine Opiates Screen (NEGATIVE) Ur Oxycodone Screen (NEGATIVE) Urine Methadone Screen (NEGATIVE) Ur Propoxyphene Screen (NEGATIVE) Ur Barbiturates Screen (NEGATIVE) Ur Tricyclics Screen (NEGATIVE) Ur Phencyclidine Scrn (NEGATIVE) Ur Amphetamine Screen (NEGATIVE) U Methamphetamines Scrn (NEGATIVE) Urine MDMA Screen (NEGATIVE) U Benzodiazepines Scrn (NEGATIVE) U Cocaine Metab Screen (NEGATIVE) U Marijuana (THC) Screen (NEGATIVE) 06/03/19 Range/Units 18:03 WBC (4.5-11.0) K/uL RBC (3.30-5.50) M/uL Hgb (12.0-15.0) g/dL Hct (36.0-48.0) % MCV (80-98) fL MCH (27-31) pg MCHC (32-36) % Plt Count (150-400) K/uL Neut % (Auto) (36-66) % Lymph % (Auto) (24-44) % [place] % (Auto) (2-6) % Eos % (Auto) (2-4) % Baso % (Auto) (0-1) % Sodium (140-148) mmol/L Potassium (3.6-5.2) mmol/L Chloride (100-108) mmol/L Carbon Dioxide (21-32) mmol/L Anion Gap (5.0-14.0) mmol/L BUN (7-18) mg/dL Creatinine (0.6-1.0) mg/dL Est Cr Clr Drug Dosing mL/min Estimated GFR (MDRD) (>60) Glucose (74-106) mg/dL Calcium (8.5-10.1) mg/dL Total Bilirubin (0.2-1.0) mg/dL AST (15-37) U/L ALT (12-78) U/L Alkaline Phosphatase (46-116) U/L CK-MB (CK-2) (0-3.6) mg/mL Troponin I (0.000-0.056) ng/mL Total Protein (6.4-8.2) g/dL Albumin (3.4-5.0) g/dL Globulin (2.3-3.5) g/dL Albumin/Globulin Ratio (1.2-2.2) Urine Color Urine Appearance Urine pH (4.5-8.0) Ur Specific [place] (1.008-1.030) Urine Protein (NEGATIVE) mg/dL Urine Glucose (UA) (NEGATIVE) mg/dL Urine Ketones (NEGATIVE) mg/dL Urine Occult Blood (NEGATIVE) Urine Nitrite (NEGATIVE) Urine Bilirubin (NEGATIVE) Urine Urobilinogen (NORMAL) mg/dL Ur Leukocyte Esterase (NEGATIVE) Urine RBC (0-5) Urine WBC (0-5) Ur Epithelial Cells Amorphous Sediment Urine Bacteria Urine Mucus Urine Opiates Screen Negative (NEGATIVE) Ur Oxycodone Screen Negative (NEGATIVE) Urine Methadone Screen Negative (NEGATIVE) Ur Propoxyphene Screen Negative (NEGATIVE) Ur Barbiturates Screen Negative (NEGATIVE) Ur Tricyclics Screen Negative (NEGATIVE) Ur Phencyclidine Scrn Negative (NEGATIVE) Ur Amphetamine Screen Negative (NEGATIVE) U Methamphetamines Scrn Negative (NEGATIVE) Urine MDMA Screen Negative (NEGATIVE) U Benzodiazepines Scrn Negative (NEGATIVE) U Cocaine Metab Screen Negative (NEGATIVE) U Marijuana (THC) Screen Presumptive positive H (NEGATIVE) Meds: Medications Generic Name Dose Route Start Last Admin Trade Name Freq PRN Reason Stop Dose Admin Sodium Chloride 1,000 mls @ 1,000 mls/hr 06/03/19 16:00 06/03/19 16:01 Normal Saline IV 1,000 mls/hr ASDIRECTED DOT Administration Sodium Chloride 1,000 mls @ 150 mls/hr 06/03/19 18:45 Normal Saline IV ASDIRECTED DOT Sodium Chloride 10 ml 06/03/19 15:04 Saline Flush FLUSH ASDIRECTED PRN Keep Vein Open - Re-Assessments/Exams Free Text/Narrative Re-Assessment/Exam: 06/03/19 15:58 reviewed labs and xray with patient; She is resting; blood pressure has been low; giving fluid bolus. Will continue to monitor. 06/03/19 17:57 Still awaiting for her to give urine sample; she flushed the first one and now we are waiting. Departure - Departure Time of Disposition: 18:47 Disposition: Admitted As Inpatient 64 Condition: Fair Clinical Impression: Bradycardia Referrals: PCP,None [Primary Care Provider] - Forms: ED Department Discharge - Problem List & Annotations (1) Bradycardia SNOMED Code(s): 67365615 Code(s): R00.1 - BRADYCARDIA, UNSPECIFIED Status: Acute Priority: Medium Current Visit: Yes - My Orders Last 24 Hours: My Active Orders 06/03/19 15:04 EKG Documentation Completion [RC] ASDIRECTED Peripheral IV Care [RC] . DIRECTED Sodium Chloride 0.9% [Saline Flush] 10 ml FLUSH ASDIRECTED PRN Peripheral IV Insertion Adult [OM.PC] Stat EKG 12 Lead [EK] Routine 06/03/19 16:00 Sodium Chloride 0.9% [Normal Saline] 1,000 ml IV ASDIRECTED - Assessment/Plan Last 24 Hours: My Active Orders 06/03/19 15:04 EKG Documentation Completion [RC] ASDIRECTED Peripheral IV Care [RC] . DIRECTED Sodium Chloride 0.9% [Saline Flush] 10 ml FLUSH ASDIRECTED PRN Peripheral IV Insertion Adult [OM.PC] Stat EKG 12 Lead [EK] Routine 06/03/19 16:00 Sodium Chloride 0.9% [Normal Saline] 1,000 ml IV ASDIRECTED
--- NOTE | 2019-06-03 15:55 | CR ---
CHEST: Portable CLINICAL HISTORY:Chest pain COMPARISON:05/18/2019 FINDINGS: Previously seen bilateral lower lobe infiltrates have resolved. Heart size pulmonary vascularity are normal. There are no effusions Impression: No acute cardio pelvic process Previously seen bilateral lower lobe infiltrates have resolved
[2019-06-03] MEDS ORDERED: Sodium Chloride 0.9% 1,000 ML IV SCH (16:00)
[2019-06-03] MEDS: Sodium Chloride 0.9% 1,000 ML IV SCH (19:22)
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
[2019-06-03] MEDS ORDERED: Codeine/guaiFENesin 100mg-10 MG/5 ML Syrup 10 ML Cup PO PRN (20:49)
[2019-06-03] MEDS ORDERED: Enoxaparin 40 MG/0.4 ML Syringe SUBCUT SCH (20:49)
[2019-06-03] MEDS ORDERED: Acetaminophen 325 MG Tab PO PRN (20:49)
[2019-06-03] MEDS ORDERED: Morphine 2 MG/ML Syringe IVPUSH PRN (20:49)
[2019-06-03] MEDS ORDERED: LORazepam 2 MG/ML SDV IV PRN (20:49)
[2019-06-03] MEDS ORDERED: Ondansetron 4 MG Tab.DIS PO PRN (20:49)
[2019-06-03] MEDS ORDERED: oxyCODONE 5 MG Tab PO PRN (20:49)
[2019-06-03] MEDS ORDERED: Albuterol 0.083% 2.5 MG/3 ML Neb Soln NEB PRN (20:49)
[2019-06-04] MEDS: PREGABALIN 75 MG PO SCH ×3 (00:35→20:30)
[2019-06-04] MEDS: DULoxetine 30 MG Cap PO SCH ×2 (00:36→17:41)
[2019-06-04] MEDS: Albuterol/Ipratropium 3.0-0.5 MG/3 ML Neb Soln NEB SCH ×5 (00:36→20:29)
[2019-06-04] MEDS: Sodium Chloride 0.9% 1,000 ML IV SCH (03:06)
[2019-06-04] MEDS: PARoxetine 20 MG Tab PO SCH (14:17)
[2019-06-04] MEDS: Pantoprazole 40 MG Tab.CR PO SCH (14:17)
[2019-06-04] MEDS: HYDROXYZINE HCL 25 MG PO SCH ×3 (14:19→20:30)
[2019-06-04] MEDS: SYMBICORT IH SCH ×2 (14:22→20:19)
[2019-06-04] MEDS ORDERED: Nicotine Polacrilex 2 MG Gum CHEW PRN (14:25)
--- NOTE | 2019-06-04 14:35 | PCM.PN ---
- General Info Date of Service: 06/04/19 Subjective Update: Ms. Landaverde has remained fairly stable since admission, there have been no further episodes of lightheadedness or syncope. She is been up and walking in the hallways without symptoms of lightheadedness. Heart rate has remained in the 40s and 50s. Orthostatic vital signs have shown no significant drop. She has experienced symptoms of chest pain prior to admission as well as with ambulation after admission. Serial troponin levels were all within normal range. - Review of Systems General: Denies: Fever, Chills Pulmonary: Reports: No Symptoms Cardiovascular: Reports: Chest Pain. Denies: Palpitations, Orthopnea, PND, Edema, Lightheadedness Gastrointestinal: Reports: No Symptoms - Patient Data Vitals - Most Recent: Last Vital Signs Temp 98.1 F 06/04/19 11:10 Pulse 55 L 06/04/19 11:10 Resp 18 06/04/19 11:10 BP 132/61 06/04/19 11:10 Pulse Ox 100 06/04/19 11:10 Orthostatic Blood Pressure [ 137/58 Standing] Orthostatic Blood Pressure [ 147/64 Sitting] Orthostatic Blood Pressure [ 132/61 Supine] Weight - Most Recent: 155 lb 9.601 oz I&O - Last 24 Hours: Intake & Output 06/03/19 06/04/19 06/04/19 22:59 06:59 14:59 Intake Total 500 1302 Output Total 500 Balance 500 1302 -500 Lab Results Last 24 Hours: Laboratory Results - last 24 hr 06/03/19 06/03/19 06/03/19 Range/Units 15:16 15:16 18:03 WBC 12.6 H (4.5-11.0) K/uL RBC 3.50 (3.30-5.50) M/uL Hgb 10.5 L (12.0-15.0) g/dL Hct 33.9 L (36.0-48.0) % MCV 97 (80-98) fL MCH 30 (27-31) pg MCHC 31 L (32-36) % Plt Count 241 (150-400) K/uL Neut % (Auto) 74 H (36-66) % Lymph % (Auto) 17 L (24-44) % Antelope % (Auto) 8 H (2-6) % Eos % (Auto) 2 (2-4) % Baso % (Auto) 0 (0-1) % Sodium 141 (140-148) mmol/L Potassium 4.1 (3.6-5.2) mmol/L Chloride 105 (100-108) mmol/L Carbon Dioxide 31 (21-32) mmol/L Anion Gap 5.4 (5.0-14.0) mmol/L BUN 16 (7-18) mg/dL Creatinine 1.1 H (0.6-1.0) mg/dL Est Cr Clr Drug Dosing 48.39 mL/min Estimated GFR (MDRD) 53 L (>60) Glucose 111 H (74-106) mg/dL Calcium 8.2 L (8.5-10.1) mg/dL Total Bilirubin 0.2 (0.2-1.0) mg/dL AST 18 (15-37) U/L ALT 25 (12-78) U/L Alkaline Phosphatase 72 (46-116) U/L CK-MB (CK-2) 1.0 (0-3.6) mg/mL Troponin I < 0.017 (0.000-0.056) ng/mL Total Protein 6.1 L (6.4-8.2) g/dL Albumin 3.0 L (3.4-5.0) g/dL Globulin 3.1 (2.3-3.5) g/dL Albumin/Globulin Ratio 1.0 L (1.2-2.2) Urine Color Yellow Urine Appearance Clear Urine pH 7.0 (4.5-8.0) Ur Specific Reading 1.005 L (1.008-1.030) Urine Protein Negative (NEGATIVE) mg/dL Urine Glucose (UA) Normal (NEGATIVE) mg/dL Urine Ketones Negative (NEGATIVE) mg/dL Urine Occult Blood Trace (NEGATIVE) Urine Nitrite Negative (NEGATIVE) Urine Bilirubin Negative (NEGATIVE) Urine Urobilinogen Normal (NORMAL) mg/dL Ur Leukocyte Esterase Trace (NEGATIVE) Urine RBC 0-5 (0-5) Urine WBC 0-5 (0-5) Ur Epithelial Cells Rare Amorphous Sediment Not seen Urine Bacteria Not seen Urine Mucus Not seen Urine Opiates Screen (NEGATIVE) Ur Oxycodone Screen (NEGATIVE) Urine Methadone Screen (NEGATIVE) Ur Propoxyphene Screen (NEGATIVE) Ur Barbiturates Screen (NEGATIVE) Ur Tricyclics Screen (NEGATIVE) Ur Phencyclidine Scrn (NEGATIVE) Ur Amphetamine Screen (NEGATIVE) U Methamphetamines Scrn (NEGATIVE) Urine MDMA Screen (NEGATIVE) U Benzodiazepines Scrn (NEGATIVE) U Cocaine Metab Screen (NEGATIVE) U Marijuana (THC) Screen (NEGATIVE) 06/03/19 06/03/19 06/04/19 Range/Units 18:03 22:10 04:50 WBC 9.2 (4.5-11.0) K/uL RBC 3.42 (3.30-5.50) M/uL Hgb 10.3 L (12.0-15.0) g/dL Hct 33.4 L (36.0-48.0) % MCV 98 (80-98) fL MCH 30 (27-31) pg MCHC 31 L (32-36) % Plt Count 207 (150-400) K/uL Neut % (Auto) 45 (36-66) % Lymph % (Auto) 42 (24-44) % Antelope % (Auto) 10 H (2-6) % Eos % (Auto) 3 (2-4) % Baso % (Auto) 1 (0-1) % Sodium (140-148) mmol/L Potassium (3.6-5.2) mmol/L Chloride (100-108) mmol/L Carbon Dioxide (21-32) mmol/L Anion Gap (5.0-14.0) mmol/L BUN (7-18) mg/dL Creatinine (0.6-1.0) mg/dL Est Cr Clr Drug Dosing mL/min Estimated GFR (MDRD) (>60) Glucose (74-106) mg/dL Calcium (8.5-10.1) mg/dL Total Bilirubin (0.2-1.0) mg/dL AST (15-37) U/L ALT (12-78) U/L Alkaline Phosphatase (46-116) U/L CK-MB (CK-2) (0-3.6) mg/mL Troponin I < 0.017 (0.000-0.056) ng/mL Total Protein (6.4-8.2) g/dL Albumin (3.4-5.0) g/dL Globulin (2.3-3.5) g/dL Albumin/Globulin Ratio (1.2-2.2) Urine Color Urine Appearance Urine pH (4.5-8.0) Ur Specific Reading (1.008-1.030) Urine Protein (NEGATIVE) mg/dL Urine Glucose (UA) (NEGATIVE) mg/dL Urine Ketones (NEGATIVE) mg/dL Urine Occult Blood (NEGATIVE) Urine Nitrite (NEGATIVE) Urine Bilirubin (NEGATIVE) Urine Urobilinogen (NORMAL) mg/dL Ur Leukocyte Esterase (NEGATIVE) Urine RBC (0-5) Urine WBC (0-5) Ur Epithelial Cells Amorphous Sediment Urine Bacteria Urine Mucus Urine Opiates Screen Negative (NEGATIVE) Ur Oxycodone Screen Negative (NEGATIVE) Urine Methadone Screen Negative (NEGATIVE) Ur Propoxyphene Screen Negative (NEGATIVE) Ur Barbiturates Screen Negative (NEGATIVE) Ur Tricyclics Screen Negative (NEGATIVE) Ur Phencyclidine Scrn Negative (NEGATIVE) Ur Amphetamine Screen Negative (NEGATIVE) U Methamphetamines Scrn Negative (NEGATIVE) Urine MDMA Screen Negative (NEGATIVE) U Benzodiazepines Scrn Negative (NEGATIVE) U Cocaine Metab Screen Negative (NEGATIVE) U Marijuana (THC) Screen Presumptive positive H (NEGATIVE) 06/04/19 Range/Units 04:50 WBC (4.5-11.0) K/uL RBC (3.30-5.50) M/uL Hgb (12.0-15.0) g/dL Hct (36.0-48.0) % MCV (80-98) fL MCH (27-31) pg MCHC (32-36) % Plt Count (150-400) K/uL Neut % (Auto) (36-66) % Lymph % (Auto) (24-44) % Antelope % (Auto) (2-6) % Eos % (Auto) (2-4) % Baso % (Auto) (0-1) % Sodium 145 (140-148) mmol/L Potassium 4.1 (3.6-5.2) mmol/L Chloride 112 H (100-108) mmol/L Carbon Dioxide 28 (21-32) mmol/L Anion Gap 9.1 (5.0-14.0) mmol/L BUN 14 (7-18) mg/dL Creatinine 1.0 (0.6-1.0) mg/dL Est Cr Clr Drug Dosing 53.23 mL/min Estimated GFR (MDRD) 59 L (>60) Glucose 93 (74-106) mg/dL Calcium 7.9 L (8.5-10.1) mg/dL Total Bilirubin (0.2-1.0) mg/dL AST (15-37) U/L ALT (12-78) U/L Alkaline Phosphatase (46-116) U/L CK-MB (CK-2) (0-3.6) mg/mL Troponin I < 0.017 (0.000-0.056) ng/mL Total Protein (6.4-8.2) g/dL Albumin (3.4-5.0) g/dL Globulin (2.3-3.5) g/dL Albumin/Globulin Ratio (1.2-2.2) Urine Color Urine Appearance Urine pH (4.5-8.0) Ur Specific Reading (1.008-1.030) Urine Protein (NEGATIVE) mg/dL Urine Glucose (UA) (NEGATIVE) mg/dL Urine Ketones (NEGATIVE) mg/dL Urine Occult Blood (NEGATIVE) Urine Nitrite (NEGATIVE) Urine Bilirubin (NEGATIVE) Urine Urobilinogen (NORMAL) mg/dL Ur Leukocyte Esterase (NEGATIVE) Urine RBC (0-5) Urine WBC (0-5) Ur Epithelial Cells Amorphous Sediment Urine Bacteria Urine Mucus Urine Opiates Screen (NEGATIVE) Ur Oxycodone Screen (NEGATIVE) Urine Methadone Screen (NEGATIVE) Ur Propoxyphene Screen (NEGATIVE) Ur Barbiturates Screen (NEGATIVE) Ur Tricyclics Screen (NEGATIVE) Ur Phencyclidine Scrn (NEGATIVE) Ur Amphetamine Screen (NEGATIVE) U Methamphetamines Scrn (NEGATIVE) Urine MDMA Screen (NEGATIVE) U Benzodiazepines Scrn (NEGATIVE) U Cocaine Metab Screen (NEGATIVE) U Marijuana (THC) Screen (NEGATIVE) Med Orders - Current: Current Medications Acetaminophen (Tylenol) 650 mg PO Q4H PRN PRN Reason: Pain (Mild 1-3)/fever Albuterol (Proventil Neb Soln) 2.5 mg NEB Q4H PRN PRN Reason: Shortness Of Breath/wheezing Albuterol/Ipratropium (Duoneb 3.0-0.5 Mg/3 Ml) 3 ml NEB QIDRT [facility] Last Admin: 06/04/19 10:44 Dose: 3 ml Duloxetine HCl (Cymbalta) 60 mg PO QPM [facility] Last Admin: 06/04/19 00:36 Dose: Not Given Enoxaparin Sodium (Lovenox) 40 mg SUBCUT BEDTIME [facility] Guaifenesin/Codeine Phosphate (Robitussin Ac) 10 ml PO Q4H PRN PRN Reason: Cough Hydroxyzine HCl (Atarax) 25 mg PO TID [facility] Last Admin: 06/04/19 14:19 Dose: 25 mg Lorazepam (Ativan) 1 mg IV Q6H PRN PRN Reason: Nausea/Vomiting Morphine Sulfate (Morphine) 2 mg IVPUSH Q2H PRN PRN Reason: Pain (severe 7-10) Nicotine (Habitrol) 21 mg TRDERM DAILY [facility] Nicotine Polacrilex (Nicorelief) 2 mg CHEW Q1H PRN PRN Reason: Other Symbicort 80-4.5 Mcg (Ptom) 2 puff IH BIDRT [facility] Last Admin: 06/04/19 14:22 Dose: Not Given Ondansetron HCl (Zofran Odt) 4 mg PO Q6H PRN PRN Reason: Nausea able to take PO Oxycodone HCl (Oxycodone) 5 mg PO Q4H PRN PRN Reason: Pain (moderate 4-6) Pantoprazole Sodium (Protonix) 40 mg PO ACBREAKFAST [facility] Last Admin: 06/04/19 14:17 Dose: 40 mg Paroxetine HCl (Paxil) 10 mg PO DAILY [facility] Last Admin: 06/04/19 14:17 Dose: 10 mg Pregabalin (Lyrica) 75 mg PO BID [facility] Last Admin: 06/04/19 14:19 Dose: Not Given Senna/Docusate Sodium (Senna Plus) 1 tab PO BID [facility] Last Admin: 06/04/19 14:19 Dose: 1 tab Discontinued Medications Enoxaparin Sodium (Lovenox) 40 mg SUBCUT DAILY [facility] Last Admin: 06/03/19 23:51 Dose: 40 mg Sodium Chloride (Normal Saline) 1,000 mls @ 1,000 mls/hr IV ASDIRECTED [facility] Last Admin: 06/03/19 16:01 Dose: 1,000 mls/hr Sodium Chloride (Normal Saline) 1,000 mls @ 150 mls/hr IV ASDIRECTED [facility] Last Admin: 06/04/19 03:06 Dose: 150 mls/hr Sodium Chloride (Saline Flush) 10 ml FLUSH ASDIRECTED PRN PRN Reason: Keep Vein Open - Exam Quality Assessment: DVT Prophylaxis General: Alert, Oriented, Cooperative, Mild Distress Lungs: Clear to Auscultation, Normal Respiratory Effort Cardiovascular: Regular Rate, Regular Rhythm, No Murmurs GI/Abdominal Exam: Soft, Non-Tender, No Organomegaly, No Distention Extremities: Non-Tender, No Pedal Edema - Problem List Review Problem List Initiated/Reviewed/Updated: Yes - My Orders Last 24 Hours: My Active Orders 06/04/19 14:25 Nicotine Polacrilex [Nicorelief] 2 mg CHEW Q1H PRN Convert IV to Saline Lock [OM.PC] Routine 06/04/19 14:26 Myocardial Perf Spect Multi [NM] Routine 06/04/19 14:30 Nicotine [Habitrol] 21 mg TRDERM DAILY - Plan Plan:: ASSESSMENT / PLAN Bradycardia with near syncope-heart rate has remained in the 40s and 50s since admission, no further episodes of lightheadedness or weakness -Saline lock IV -Telemetry Chest pain-occurring with activity prior to admission and associated with her episode of syncope. She reports symptoms of chest pain with activity while in the hospital. Serial troponin levels have been within normal range. Calculated HEART score is 4. -Exercise Cardiolite study in a.m. COPD -Robitussin AC 10 ml po every 4 hours as needed for painful cough -Duoneb every 6 hours scheduled -Albuteral nebulizer every 2 to 4 hours as needed for wheezing -continue home meds. Tobacco and THC use -21 mg nicotine patch daily -2 mg nicotine gum as needed Maintenance issues -Orders home medication -Nutrition: Regular diet, low sodium -Perez catheter not indicated at this time -DVT:Lovenox 40mg subcut daily -GI Prophalaxis; PO Protonix 40mg daily CODE STATUS: Full Admission status: Admit to Observation -I expect this patient to stay less than 24 hours, not to exceed 96 hours for evaluation and management of this problem. Disposition: home with family Primary care provider: Dr. Farah, [place], [place]. Hospitalist: Dr. Santos
[2019-06-04] MEDS: Nicotine 21 MG/24 Hr Patch TRDERM SCH (15:26)
[2019-06-04] MEDS ORDERED: Enoxaparin 40 MG/0.4 ML Syringe SUBCUT SCH (21:00)
[2019-06-05] MEDS: Albuterol/Ipratropium 3.0-0.5 MG/3 ML Neb Soln NEB SCH ×2 (07:22→11:37)
[2019-06-05] MEDS: SYMBICORT IH SCH (07:23)
[2019-06-05] MEDS: Pantoprazole 40 MG Tab.CR PO SCH (09:19)
[2019-06-05] MEDS: PREGABALIN 75 MG PO SCH (09:19)
[2019-06-05] MEDS: Nicotine 21 MG/24 Hr Patch TRDERM SCH (09:19)
[2019-06-05] MEDS: PARoxetine 20 MG Tab PO SCH (09:19)
[2019-06-05] MEDS: HYDROXYZINE HCL 25 MG PO SCH ×2 (09:19→14:35)
[2019-06-05 11:16] VITALS: BP 129/77; PULSE 64
--- NOTE | 2019-06-05 14:09 | CRLNM ---
MYOCARDIAL PERFUSION SCAN CLINICAL HISTORY: 48-year-old female. Chest pain. TECHNIQUE: (Resting SPECT and Stress Gated SPECT with wall motion and ejection fraction) Stress: Pharmacologic Lexiscan (0.4 mg) (IV) Dose (Stress/Rest): 31.8 mCi/10.2 mCi Tc-99m Myoview (IV) Comparison: None FINDINGS: There is good uptake of activity by the left ventricle. No left ventricular enlargement is noted. There is mild soft tissue attenuation. No other significant fixed or reversible defects are identified. The gated images demonstrate a normal left ventricular ejection fraction of approximately 65 percent. No regional wall motion abnormalities are identified. IMPRESSION: 1. There is no evidence of significant myocardial ischemia or infarction. 2. Normal left ventricular ejection fraction of approximately 65 percent. Feng Gamboa M.D. [email or web address] Transcribed: 1:57 pm DW/Dictated by: Feng Gamboa MD @ 06/05/2019 1:46:00 PM (Electronically Signed)
--- NOTE | 2019-06-05 14:45 | PCM.DCSUM1 ---
Discharge Summary - Hospital Course Brief History: Ms. Landaverde is a 48-year-old woman who was admitted to observation status through the emergency department with a history of lightheadedness, weakness, syncope, chest pain, and bradycardia. - Discharge Data Discharge Date: 06/05/19 Discharge Disposition: Home, Self-Care 01 Condition: Stable - Discharge Diagnosis/Problem(s) (1) Chest pain SNOMED Code(s): 03683537 ICD Code: R07.9 - CHEST PAIN, UNSPECIFIED Status: Acute Current Visit: Yes (2) Bradycardia SNOMED Code(s): 92047161 ICD Code: R00.1 - BRADYCARDIA, UNSPECIFIED Status: Acute Priority: High Current Visit: Yes (3) COPD (chronic obstructive pulmonary disease) SNOMED Code(s): 86669654 ICD Code: J44.9 - CHRONIC OBSTRUCTIVE PULMONARY DISEASE, UNSPECIFIED Status : Acute Priority: Medium Current Visit: Yes Qualifiers: Chronic bronchitis type: simple - Patient Summary/Data Consults: Consultations 06/03/19 20:49 Consult to Spiritual Care [CONS] Routine Hospital Course: This is a 48 year old female was admitted to observation status from the ER. She reports for the past 3 days not feeling well, dizziness with standing, she was smoking a cigarettes and almost passed out. yesterday her Daughter found her on the floor passed out. Reports smoking THC two times a day, did not feel the THC had any changes it was the "same stuff" no history of heart issues. Was in the hospital two weeks ago for pneumonia. ER workup: telemetry bradycardia with a rate of 40 to 42. troponin <0.017, chest xray improved from last chest x- ray. She was admitted to observation status and placed on cardiac monitoring. Heart rates were found to be in the 40s and 50s for most of her hospital stay. She had no further symptoms of lightheadedness or weakness during hospitalization and was ambulating independently in the hallways prior to discharge. Serial troponin levels were obtained and remained within normal range. She did experience some symptoms of chest pain with activity and for this reason she was kept one additional night for a nuclear medicine cardiac study. Originally the plan had been to proceed with exercise Myoview scan, she did have heart rate response with activity but would not go above 100. Study was converted to Numer[employer] Myoview study. This study was found to be normal showing no evidence of infarct, ischemia, with normal left ventricular function. Medications were reviewed by pharmacy, no obvious rate slowing medications were identified. Follow-up appointment will be scheduled with her primary care provider within one week. Activity will be as tolerated and she will resume her usual diet. - Patient Instructions Diet: Usual Diet as Tolerated Activity: As Tolerated Other/Special Instructions: Please schedule follow-up appointment with primary care provider within one week. - Discharge Plan *PRESCRIPTION DRUG MONITORING PROGRAM REVIEWED*: Not Applicable *COPY OF PRESCRIPTION DRUG MONITORING REPORT IN PATIENT MICHAEL: Not Applicable Home Medications: Home Meds Multivitamin [Multivitamins] 1 tab PO DAILY 09/22/15 [History] Albuterol Sulfate [Proair Respiclick] 2 puff IH QID PRN 10/05/15 [History] tiZANidine HCl [Zanaflex] 1 - 2 tab PO BEDTIME PRN 10/05/15 [History] hydrOXYzine pamoate [Hydroxyzine Pamoate] 25 mg PO TID PRN 07/15/18 [History] Budesonide/Formoterol [Symbicort 80-4.5 MCG] 2 puff IH BID 11/13/18 [History] Cholecalciferol (Vitamin D3) [Vitamin D3] 2,000 units PO DAILY 11/13/18 [History ] DULoxetine [Cymbalta] 60 mg PO DAILY 11/13/18 [History] Fluticasone Propionate [Flonase] 2 sprays EVELIA DAILY PRN 11/13/18 [History] PARoxetine [Paxil] 10 mg PO DAILY 11/13/18 [History] Pantoprazole Sodium [Protonix] 40 mg PO DAILY 11/13/18 [History] Umeclidinium Brm/Vilanterol Tr [Anoro Ellipta 62.5-25 MCG] 1 puff IH DAILY 11/13 [History] Nicotine [Habitrol] 1 patch TOP DAILY 12/04/18 [History] Nicotine [Nicotrol] 1 puff INH ASDIRECTED PRN 12/04/18 [History] Sennosides/Docusate Sodium [Senokot-S Tablet] 1 - 2 tab PO DAILY PRN 12/04/18 [ History] Pregabalin [Lyrica] 75 mg PO BID 03/23/19 [History] Vitamin B Complex [B Complex] 100 mg PO DAILY 03/23/19 [History] Albuterol/Ipratropium [DuoNeb 3.0-0.5 MG/3 ML] 3 ml INH Q6H PRN 05/28/19 [ History] Calcium Citrate/Vitamin D3 [Calcium Citrate + D] 1 tab PO BID 05/28/19 [History] Referrals: Johnson Sr MD [Physician] - - Discharge Summary/Plan Comment DC Time >30 min.: No - Patient Data Vitals - Most Recent: Last Vital Signs Temp 98.4 F 06/05/19 07:46 Pulse 64 06/05/19 11:14 Resp 16 06/05/19 11:14 BP 129/77 06/05/19 11:14 Pulse Ox 96 06/05/19 07:46 Orthostatic Blood Pressure [ 124/66 Standing] Orthostatic Blood Pressure [ 124/62 Sitting] Orthostatic Blood Pressure [ 126/65 Supine] Weight - Most Recent: 155 lb 9.601 oz I&O - Last 24 hours: Intake & Output 06/04/19 06/05/19 06/05/19 22:59 06:59 14:59 Intake Total 1470 Balance 1470 Med Orders - Current: Current Medications Acetaminophen (Tylenol) 650 mg PO Q4H PRN PRN Reason: Pain (Mild 1-3)/fever Albuterol (Proventil Neb Soln) 2.5 mg NEB Q4H PRN PRN Reason: Shortness Of Breath/wheezing Albuterol/Ipratropium (Duoneb 3.0-0.5 Mg/3 Ml) 3 ml NEB QIDRT [facility] Last Admin: 06/05/19 11:37 Dose: Not Given Duloxetine HCl (Cymbalta) 60 mg PO QPM [facility] Last Admin: 06/04/19 17:41 Dose: 60 mg Enoxaparin Sodium (Lovenox) 40 mg SUBCUT BEDTIME [facility] Last Admin: 06/04/19 20:19 Dose: 40 mg Guaifenesin/Codeine Phosphate (Robitussin Ac) 10 ml PO Q4H PRN PRN Reason: Cough Hydroxyzine HCl (Atarax) 25 mg PO TID [facility] Last Admin: 06/05/19 14:35 Dose: 25 mg Lorazepam (Ativan) 1 mg IV Q6H PRN PRN Reason: Nausea/Vomiting Morphine Sulfate (Morphine) 2 mg IVPUSH Q2H PRN PRN Reason: Pain (severe 7-10) Nicotine (Habitrol) 21 mg TRDERM DAILY [facility] Last Admin: 06/05/19 09:19 Dose: Not Given Nicotine Polacrilex (Nicorelief) 2 mg CHEW Q1H PRN PRN Reason: Other Symbicort 80-4.5 Mcg (Ptom) 2 puff IH BIDRT [facility] Last Admin: 06/05/19 07:23 Dose: 2 puff Ondansetron HCl (Zofran Odt) 4 mg PO Q6H PRN PRN Reason: Nausea able to take PO Oxycodone HCl (Oxycodone) 5 mg PO Q4H PRN PRN Reason: Pain (moderate 4-6) Pantoprazole Sodium (Protonix) 40 mg PO ACBREAKFAST [facility] Last Admin: 06/05/19 09:19 Dose: 40 mg Paroxetine HCl (Paxil) 10 mg PO DAILY [facility] Last Admin: 06/05/19 09:19 Dose: 10 mg Pregabalin (Lyrica) 75 mg PO BID [facility] Last Admin: 06/05/19 09:19 Dose: 75 mg Senna/Docusate Sodium (Senna Plus) 1 tab PO BID [facility] Last Admin: 06/05/19 09:20 Dose: Not Given Discontinued Medications Enoxaparin Sodium (Lovenox) 40 mg SUBCUT DAILY [facility] Last Admin: 06/03/19 23:51 Dose: 40 mg Sodium Chloride (Normal Saline) 1,000 mls @ 1,000 mls/hr IV ASDIRECTED [facility] Last Admin: 06/03/19 16:01 Dose: 1,000 mls/hr Sodium Chloride (Normal Saline) 1,000 mls @ 150 mls/hr IV ASDIRECTED [facility] Last Admin: 06/04/19 03:06 Dose: 150 mls/hr Regadenoson (Lexiscan) 0.4 mg IVPUSH ONETIME ONE Stop: 06/05/19 11:41 Last Admin: 06/05/19 11:44 Dose: 0.4 mg Sodium Chloride (Saline Flush) 10 ml FLUSH ASDIRECTED PRN PRN Reason: Keep Vein Open - Exam General: Reports: Alert, Oriented, Cooperative, No Acute Distress Lungs: Reports: Clear to Auscultation, Normal Respiratory Effort Cardiovascular: Reports: Regular Rhythm, No Murmurs, Bradycardia GI/Abdominal Exam: Soft, Non-Tender, No Organomegaly, No Distention
--- NOTE | 2019-06-06 08:04 | STRESS ---
DATE OF SERVICE: 06/05/2019 PROCEDURE: Lexiscan Cardiolite study. INDICATIONS: Ms. Landaverde was originally scheduled for a treadmill exercise Cardiolite study, and she was able to exercise for 7 minutes on the Venancio protocol. Unfortunately, she was unable to achieve anywhere near her predicted maximal heart rate and so the test was discontinued at this point. She did begin to experience some chest pain towards the end of the test. Review of EKG shows no acute ST-segment changes or T-wave abnormalities. Study was then converted to a Lexiscan Cardiolite study. She was infused with the usual dose of Lexiscan followed by the Cardiolite infusion given per protocol. Resting ECG: Sinus bradycardia, rate of 56, normal axis and intervals. Otherwise, fairly normal-appearing EKG. No significant changes were seen on the post hyperventilation or standing ECGs. She was noted to have premature ventricular complexes during the monitoring. There were no significant ST-segment changes. T-wave abnormality seen with Lexiscan infusion during the post-infusion. She experienced no symptoms of chest pain or pressure with the use of Lexiscan. IMPRESSION: Unremarkable Lexiscan portion of the Lexiscan Cardiolite study. Interpretation of the Cardiolite portion of the study is pending at this time. Omar Santos MD /[id number]
== END 2019-06-05 15:15 | disposition home or self-care (01) ==
LOC: JP.ED 15:03 → JP.MS 19:28
PROVIDERS: ADMIT Hospitalist; ATTEND Hospitalist
DX: R00.1 Bradycardia, unspecified (principal); R07.9 Chest pain, unspecified; J44.9 Chronic obstructive pulmonary disease, unspecified; I25.10 Atherosclerotic heart disease of native coronary artery without angina pectoris; E78.00 Pure hypercholesterolemia, unspecified; K59.09 Other constipation; K21.9 Gastro-esophageal reflux disease without esophagitis; M19.90 Unspecified osteoarthritis, unspecified site; R56.9 Unspecified convulsions; F41.9 Anxiety disorder, unspecified; F31.30 Bipolar disorder, current episode depressed, mild or moderate severity, unspecified; E53.8 Deficiency of other specified B group vitamins; F17.210 Nicotine dependence, cigarettes, uncomplicated; Z88.2 Allergy status to sulfonamides; Z88.8 Allergy status to other drugs, medicaments and biological substances; Z91.040 Latex allergy status; Z79.899 Other long term (current) drug therapy; Z79.51 Long term (current) use of inhaled steroids
CPT/HCPCS: 36415; 71045; 78452; 80048; 80053; 80305; 81001; 82553; 84484; 85025; 93005; 93017; 93018; 94640; 96360; 96361; 96372; 99284; 99285; A9270; A9500; G0378; J1650; J2785; J7030; 93010; 99217; 99218; 99224; J7620-GY

== ENCOUNTER 2019-09-02 07:24 | Day surgery (SDC) | payer MEDICARE, MEDICAID ==
[~2019-09-02 07:24] MED LIST: Midazolam 1 MG/ML 2 ML SDV ONE; Propofol 200 MG/20 ML SDV ONE; fentaNYL 100 MCG/2 ML SDV ONE
[2019-09-02] MEDS ORDERED: Dextrose 5%-Lactated Ringers 1,000 ML IV SCH (08:15)
[2019-09-02 13:38] VITALS: BP 100/57; PULSE 47
--- NOTE | 2019-09-03 07:42 | OR ---
DATE OF PROCEDURE: 09/02/2019 SURGEON: Martir Bang MD PREOPERATIVE DIAGNOSIS: History of Brush's esophagus. POSTOPERATIVE DIAGNOSES: 1. History of Brush's esophagus with mild inflammation of esophagogastric junction, small hiatal hernia. 2. Patchy antral gastritis. OPERATIVE PROCEDURES: Esophagogastroduodenoscopy with: 1. Biopsy of esophagogastric junction for histologic evaluation. 2. Biopsies of antrum for CLOtest. ANESTHESIA: IV sedation. INDICATION FOR PROCEDURE: The patient has history of Brush's esophagus and is due for an endoscopy for followup of the Brush's esophagus. Potential risks of the procedure including bleeding and perforation were discussed, and the patient wishes to proceed. DETAILS OF PROCEDURE: The patient was taken to the operating room and placed in a left lateral decubitus position. IV sedation was administered, after which the upper GI endoscope was passed orally through the length of the esophagus, into the stomach with retroflexion view of the fundus, and thereafter through the pyloric channel and into the proximal duodenum. Findings included normal hypopharynx, larynx, upper esophageal sphincter, and esophageal body. At the EG junction, a small hiatal hernia was present. There was some upward extension of the esophagogastric mucosal line consistent with known Brush's esophagus, but very mild inflammation present. There was no plaquing or stricturing or other signs of neoplasia. Within the stomach, there was some patchy redness in the antrum. Pyloric channel and proximal duodenum were unremarkable. At this point, biopsies were obtained from the antrum and sent for CLOtest for H pylori and multiple biopsies obtained from the esophagogastric junction and sent for histologic evaluation. Minimal bleeding from the biopsy sites was seen, and the procedure then concluded. The patient was taken to the recovery room in satisfactory condition. The patient is presently on Protonix with good control of reflux symptoms and would continue the current medical management, and assuming there is no progression toward dysplasia on today's biopsies, next endoscopy should be in 2 years. Martir Bang MD /[id number]
== END 2019-09-02 13:45 | disposition home or self-care (01) ==
LOC: JP.SDS 07:24
PROVIDERS: ATTEND Surgery
DX: K22.70 Barrett's esophagus without dysplasia (principal); K22.8 Other specified diseases of esophagus; K44.9 Diaphragmatic hernia without obstruction or gangrene; K29.70 Gastritis, unspecified, without bleeding; J45.909 Unspecified asthma, uncomplicated; G47.33 Obstructive sleep apnea (adult) (pediatric); F17.210 Nicotine dependence, cigarettes, uncomplicated; Z91.040 Latex allergy status; Z99.89 Dependence on other enabling machines and devices; Z88.8 Allergy status to other drugs, medicaments and biological substances; Z88.2 Allergy status to sulfonamides
CPT/HCPCS: 43239; 87081; 88305; J2250; J2704; J3010; J7042

== ENCOUNTER 2019-09-14 18:03 | Emergency (ER) | payer MEDICARE, MEDICAID ==
[2019-09-14] MEDS: Lidocaine 1% 20 ML MDV INJECT ONE (18:12)
[2019-09-14 18:13] VITALS: BP 127/82; PULSE 68
--- NOTE | 2019-09-14 18:18 | EDM.PDOC ---
ED HPI GENERAL MEDICAL PROBLEM - General Chief Complaint: Upper Extremity Injury/Pain Stated Complaint: PIECE OF GLASS UNDER FINGERNAIL LEFT HAND Time Seen by Provider: 09/14/19 18:06 Source of Information: Reports: Patient History Limitations: Reports: No Limitations - History of Present Illness INITIAL COMMENTS - FREE TEXT/NARRATIVE: Keily is a 49 year old female who presents to the ED today after getting glass stuck under her left 4th finger nail. Patient put her hand in her pocket and her cell phone case was broken. Patient denies any other injuries. Onset: Today, Sudden - Related Data Allergies Allergy/AdvReac Type Severity Reaction Status Date / Time latex Allergy Hives Verified 09/02/19 07:37 Sulfa (Sulfonamide Allergy Rash Verified 09/02/19 07:37 Antibiotics) topiramate [From Topamax] Allergy Cannot Verified 09/02/19 07:37 Remember Home Meds: Home Meds Multivitamin [Multivitamins] 1 tab PO DAILY 09/22/15 [History] Albuterol Sulfate [Proair Respiclick] 2 puff IH QID PRN 10/05/15 [History] hydrOXYzine pamoate [Hydroxyzine Pamoate] 25 mg PO TID PRN 07/15/18 [History] Budesonide/Formoterol [Symbicort 80-4.5 MCG] 2 puff IH BID 11/13/18 [History] Cholecalciferol (Vitamin D3) [Vitamin D3] 2,000 units PO DAILY 11/13/18 [History ] DULoxetine [Cymbalta] 60 mg PO DAILY 11/13/18 [History] Fluticasone Propionate [Flonase] 2 sprays EVELIA DAILY PRN 11/13/18 [History] PARoxetine [Paxil] 10 mg PO DAILY 11/13/18 [History] Pantoprazole Sodium [Protonix] 40 mg PO DAILY 11/13/18 [History] Umeclidinium Brm/Vilanterol Tr [Anoro Ellipta 62.5-25 MCG] 1 puff IH DAILY 11/13 [History] Nicotine [Habitrol] 1 patch TOP DAILY 12/04/18 [History] Nicotine [Nicotrol] 1 puff INH ASDIRECTED PRN 12/04/18 [History] Sennosides/Docusate Sodium [Senokot-S Tablet] 1 - 2 tab PO DAILY PRN 12/04/18 [ History] Pregabalin [Lyrica] 75 mg PO BID 03/23/19 [History] Vitamin B Complex [B Complex] 100 mg PO DAILY 03/23/19 [History] Calcium Citrate/Vitamin D3 [Calcium Citrate + D] 1 tab PO BID 05/28/19 [History] Albuterol/Ipratropium [DuoNeb 3.0-0.5 MG/3 ML] 3 ml IH Q6HR PRN 07/16/19 [ History] Cyanocobalamin (Vitamin B-12) [Vitamin B-12] 1,000 mcg SL DAILY 07/16/19 [ History] Acetaminophen [Tylenol] 650 mg PO Q4H PRN tablet 07/18/19 [Rx] HYDROmorphone [Dilaudid] 2 mg PO Q6H PRN #28 tablet 07/18/19 [Rx] Past Medical History HEENT History: Reports: Allergic Rhinitis, Impaired Vision, Macular Degeneration , Retinal Detachment, Sinusitis Cardiovascular History: Reports: CAD, High Cholesterol Other Cardiovascular History: Carotid artery blockage. 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 left elbow pain Neurological History: Reports: Concussion, Headaches, Chronic, Head Trauma, Migraines, Neuropathy, Peripheral, Seizure, Vertigo Other Neuro History: lymes hx Psychiatric History: Reports: Anxiety, Bipolar, Dementia, Depression, Emotional Problems, Learning Disability, Panic Attack, Psych Hospitalization(s), PTSD, Suicide Attempt, Suicidal Ideation Other Psychiatric History: chronic pain syndrome Endocrine/Metabolic History: Reports: None Hematologic History: Reports: B12 Deficiency, Folic Acid Immunologic History: Reports: None Oncologic (Cancer) History: Reports: Cervix Dermatologic History: Reports: None - Infectious Disease History Infectious Disease History: Reports: Chicken Pox - Past Surgical History Head Surgeries/Procedures: Reports: None HEENT Surgical History: Reports: Tonsillectomy, Other (See Below) Other HEENT Surgeries/Procedures: "tonsils grew back", sinus surgery Cardiovascular Surgical History: Reports: None Respiratory Surgical History: Reports: None GI Surgical History: Reports: EGD, Hernia, Abdominal, Samson Fundoplication Other GI Surgeries/Procedures: partial gastrectomy Female Surgical History: Reports: Section, Hysterectomy, Salpingo- Oophorectomy Neurological Surgical History: Reports: None Musculoskeletal Surgical History: Reports: Other (See Below) Other Musculoskeletal Surgeries/Procedures:: Elbow surgery Oncologic Surgical History: Reports: Other (See Below) Other Oncologic Surgeries/Procedures: Hysterectomy Dermatological Surgical History: Reports: None Social & Family History - Family History Family Medical History: Noncontributory - Caffeine Use Caffeine Use: Reports: Coffee, Soda Caffeine Use Comment: seldom - Living Situation & Occupation Living situation: Reports: Occupation: Unemployed (lives in alone in [place]. Children all grown, one lives in [place], one live in [place] and 1 in [place].) Review of Systems - Review of Systems Review Of Systems: ROS reveals no pertinent complaints other than HPI. ED EXAM, GENERAL - Physical Exam Exam: See Below Exam Limited By: No Limitations General Appearance: Alert, WD/WN, No Apparent Distress Head: Atraumatic Neck: Normal Inspection Respiratory/Chest: No Respiratory Distress Cardiovascular: Regular Rate, Rhythm Back Exam: Normal Inspection Extremities: Normal Inspection Neurological: Alert, Oriented, CN II-XII Intact Psychiatric: Normal Affect Skin Exam: Warm, Dry, Intact, Other (some dried blood noted under left fourth fingernail, no fb identified yet, nail with dirt underneat as well) Lymphatic: No Adenopathy ED TRAUMA EXTREMITY PROCEDURES - Additional/Other Procedure(s) Other (Free Text) Procedure(s): Digital block done to 4th left digit with 5 ml of 1% lidocaine Course - Vital Signs Last Recorded V/S: Last Vital Signs Temp 36.7 C 09/14/19 18:15 Pulse 68 09/14/19 18:15 Resp 16 09/14/19 18:15 BP 127/82 09/14/19 18:15 Pulse Ox 98 09/14/19 18:15 Glass, very small piece removed from under left distal fingernail. Patient tolerated well. Wound care discussed as well as reasons to return to the ED. Patient agreeable and discharged in stable condition. - Orders/Labs/Meds Meds: Medications Discontinued Medications Generic Name Dose Route Start Last Admin Trade Name Fletcher PRN Reason Stop Dose Admin Lidocaine HCl 20 ml 09/14/19 18:06 09/14/19 18:12 Xylocaine 1% INJECT 09/14/19 18:07 20 ml ONETIME ONE Administration Departure - Departure Time of Disposition: 19:00 Disposition: Home, Self-Care 01 Condition: Good Clinical Impression: Foreign body finger - Discharge Information Instructions: Hand or Foot Foreign Body, Adult Referrals: Johnson Sr MD [Primary Care Provider] - Forms: ED Department Discharge Additional Instructions: Keep clean and dry, bacitracin to area twice daily for 3 days.
== END 2019-09-14 18:35 | disposition home or self-care (01) ==
LOC: JP.ED 18:03
DX: S60.455A Superficial foreign body of left ring finger, initial encounter (principal); E78.00 Pure hypercholesterolemia, unspecified; J44.9 Chronic obstructive pulmonary disease, unspecified; K21.9 Gastro-esophageal reflux disease without esophagitis; F41.9 Anxiety disorder, unspecified; F32.9 Major depressive disorder, single episode, unspecified; Z91.040 Latex allergy status; Z88.2 Allergy status to sulfonamides; Z88.8 Allergy status to other drugs, medicaments and biological substances; Z79.899 Other long term (current) drug therapy; W45.8XXA Other foreign body or object entering through skin, initial encounter
CPT/HCPCS: 64450; 99282; 99283; J2001

== ENCOUNTER 2019-10-15 05:42 | Day surgery (SDC) | payer MEDICARE, MEDICAID ==
[2019-10-15] MEDS ORDERED: Dextrose 5%-Lactated Ringers 1,000 ML IV SCH (07:00)
[2019-10-15] MEDS ORDERED: fentaNYL 100 MCG/2 ML SDV ONE (07:08)
[2019-10-15] MEDS ORDERED: Propofol 200 MG/20 ML SDV ONE (07:08)
[2019-10-15] MEDS ORDERED: Midazolam 1 MG/ML 2 ML SDV ONE (07:08)
[2019-10-15 08:45] VITALS: BP 116/74; PULSE 80
--- NOTE | 2019-10-25 15:01 | OR ---
DATE OF PROCEDURE: 10/15/2019 SURGEON: Martir Bang MD PREOPERATIVE DIAGNOSIS: Family history of colon polyps. POSTOPERATIVE DIAGNOSES: 1. Family history of colon polyps. 2. Single small (2 mm) polyp in the low rectum. 3. Uncomplicated left colonic diverticulosis. OPERATIVE PROCEDURE: Flexible colonoscopy with polypectomy by snare technique. ANESTHESIA: IV sedation. INDICATIONS: A 49-year-old presenting for followup screening colonoscopy. She does have family history of colonic neoplasia. The plan is to proceed with colonoscopy with biopsies and/or polypectomy as indicated. Potential risks including bleeding and perforation were discussed, and the patient wishes to proceed. DETAILS OF PROCEDURE: The patient was taken to the operating room and placed in a left lateral decubitus position. IV sedation was administered after which the initial digital rectal exam was performed and was unremarkable. The colonoscope was then passed into the rectum with retroflexion revealing uncomplicated hemorrhoidal columns. The scope was eventually passed to the level of the cecum. The prep was fairly good with only a small amount of liquid stool being present. The patient was noted to have some left colonic diverticulosis. There were no areas of colitis. The only polyp was that of a very tiny roughly 2 mm polyp in the low rectum. This was encircled with the snare and excised and sent for histologic evaluation. Good hemostasis at the polypectomy site was confirmed and the procedure then concluded. The patient was taken to the recovery room in satisfactory condition. Recommendation would be to have followup colonoscopy in either 3 or 5 years depending on the pathology report. We will notify the patient of that when and as it becomes available. Martir Bang MD Job #: [id number]
== END 2019-10-15 09:00 | disposition home or self-care (01) ==
LOC: JP.SDS 05:42
PROVIDERS: ATTEND Surgery
DX: Z12.11 Encounter for screening for malignant neoplasm of colon (principal); K62.1 Rectal polyp; K57.30 Diverticulosis of large intestine without perforation or abscess without bleeding; K22.70 Barrett's esophagus without dysplasia; G47.33 Obstructive sleep apnea (adult) (pediatric); J44.9 Chronic obstructive pulmonary disease, unspecified; E78.5 Hyperlipidemia, unspecified; F17.210 Nicotine dependence, cigarettes, uncomplicated; Z80.0 Family history of malignant neoplasm of digestive organs; Z90.3 Acquired absence of stomach [part of]; Z99.89 Dependence on other enabling machines and devices
CPT/HCPCS: 45385; 88305; J2250; J2704; J3010

== ENCOUNTER 2019-10-22 05:30 | Day surgery (SDC) | payer MEDICARE, MEDICAID ==
[2019-10-22] MEDS ORDERED: Dextrose 5%-Lactated Ringers 1,000 ML IV SCH ×2 (06:45→12:15)
[2019-10-22] MEDS ORDERED: Meropenem 500 MG SDV ONE (06:46)
[2019-10-22] MEDS ORDERED: Bupivacaine 0.5% 50 ML MDV ONE (06:47)
[2019-10-22] MEDS ORDERED: Lidocaine 1% with EPINEPHrine 1:100,000 50 ML MDV ONE (06:47)
[2019-10-22] MEDS ORDERED: Albuterol/Ipratropium 3.0-0.5 MG/3 ML Neb Soln NEB ONE (07:10)
[2019-10-22] MEDS ORDERED: Acetaminophen 500 MG Tab PO ONE (07:10)
[2019-10-22] MEDS ORDERED: Rocuronium 50 MG/5 ML Vial ONE (07:12)
[2019-10-22] MEDS ORDERED: Glycopyrrolate 0.2 MG/ML 5 ML MDV ONE (07:12)
[2019-10-22] MEDS ORDERED: Neostigmine Methylsulfate 1 MG/ML 5 ML Syringe ONE (07:12)
[2019-10-22] MEDS ORDERED: Ondansetron 4 MG/2 ML SDV ONE (07:12)
[2019-10-22] MEDS ORDERED: Dexamethasone 4 MG/ML SDV ONE (07:12)
[2019-10-22] MEDS ORDERED: Propofol 200 MG/20 ML SDV ONE (07:12)
[2019-10-22] MEDS ORDERED: fentaNYL 250 MCG/5 ML SDV ONE ×2 (07:14→08:25)
[2019-10-22] MEDS ORDERED: ceFAZolin 2 GM in Sodium Chloride 0.9% 50 ML IV ONE (07:30)
[2019-10-22] MEDS ORDERED: Ketamine 500 MG/5 ML MDV IV SCH (07:30)
[2019-10-22] MEDS ORDERED: Ropivacaine 34 ML, dexAMETHasone 8 MG, EPINEPHrine 0.4 MG, Sodium Chloride 0.9% 43.6 ML NERVRT SCH ×4 (07:30)
[2019-10-22] MEDS ORDERED: Ketamine 50 MG in Sodium Chloride 0.9% 49.5 ML IV SCH (08:00)
[2019-10-22] MEDS ORDERED: Ketorolac 60 MG/2 ML SDV ONE (09:38)
[2019-10-22] MEDS ORDERED: Albuterol/Ipratropium 3.0-0.5 MG/3 ML Neb Soln INH PRN (12:15)
[2019-10-22] MEDS ORDERED: hydrOXYzine HCl 100 MG/2 ML SDV IM PRN (12:15)
[2019-10-22] MEDS ORDERED: HYDROmorphone 1 MG/ML Syringe IV PRN (12:15)
[2019-10-22] MEDS ORDERED: HYDROmorphone 0.5 MG/0.5 ML Syringe IVPUSH PRN (12:15)
[2019-10-22] MEDS ORDERED: Ondansetron 4 MG/2 ML SDV IVPUSH PRN (12:15)
[2019-10-22] MEDS ORDERED: Cyclobenzaprine 10 MG Tab PO PRN (12:19)
[2019-10-22] MEDS ORDERED: Acetaminophen 500 MG Tab PO SCH (14:00)
[2019-10-22] MEDS ORDERED: ceFAZolin 2 GM in Sodium Chloride 0.9% 50 ML IV SCH (14:00)
[2019-10-22] MEDS ORDERED: Albuterol/Ipratropium 3.0-0.5 MG/3 ML Neb Soln INH SCH (15:00)
[2019-10-22 16:19] VITALS: BP 127/62; PULSE 74
[2019-10-22] MEDS ORDERED: Glycopyrrolate 15.6 MCG Cap.W.Dev Kit of 6 IH SCH (21:00)
[2019-10-22] MEDS ORDERED: Fluticasone-Salmeterol 113-14 MCG Powder Inhalant INH SCH (21:00)
[2019-10-22] MEDS ORDERED: Pregabalin 75 MG Cap PO SCH (21:00)
[2019-10-23] MEDS ORDERED: Pantoprazole 40 MG Tab.CR PO SCH (07:30)
[2019-10-23] MEDS ORDERED: PARoxetine 20 MG Tab PO SCH (09:00)
--- NOTE | 2019-10-25 15:04 | OR ---
DATE OF PROCEDURE: 10/22/2019 SURGEON: Martir Bang MD PREOPERATIVE DIAGNOSIS: Recurrent incisional hernia. POSTOPERATIVE DIAGNOSES: 1. Recurrent incarcerated incisional hernia. 2. Extensive intraabdominal adhesions. OPERATIVE PROCEDURES: Diagnostic laparoscopy with lysis of extensive adhesions: 1. Repair of recurrent incarcerated incisional hernia with mesh (45915). 2. Placement of Interceed mesh to displace pelvic and abdominal wall from underlying viscera to limit recurrent adhesion formation ([id number]). ANESTHESIA: General. SUPERVISOR PROCESS TESTING: Rebeca Santiago PA-C. INDICATIONS FOR PROCEDURE: This is a 49-year-old presenting with recurrent incisional hernia that is located somewhat superior and medial to the previous hernia repair. The plan is to proceed with diagnostic laparoscopy, laparotomy if necessary, and repair of the recurrent hernia with mesh. Potential risks including bleeding, infection, injury to underlying viscera, problems with the hernia recurring, or the mesh becoming infected were all reviewed as well as possibility of some persistent chronic pain following the procedure, and she wishes to proceed. DETAILS OF PROCEDURE: The patient was taken to the operating room and placed in a supine position. After general endotracheal anesthesia was induced, a Perez catheter was inserted and the abdomen prepped and draped. In the right lateral abdomen, a transverse incision was made, and the peritoneal cavity was entered under direct vision with an Optiview trocar. The peritoneal cavity was inflated to 15 mmHg pressure with CO2, and the laparoscope was reinserted. No underlying trocar insertion site injuries were evident. Following this, eventually 4 additional 5 mm trocars were placed, some on the right and some on the left abdomen. The patient was noted to have quite extensive adhesions between the area of the recurrent hernia where omentum was incarcerated as well as between the abdominal wall underlying the mesh previously placed as well as the abdominal wall itself. These were all taken down with a combination of sharp and Harmonic scalpel dissection. There was some large bowel and small bowel involved in the area of adhesions, but these appeared to come down quite cleanly with sharp dissection near the bowel surface. Once all the adhesions were taken down, the area of the hernia was confirmed to the medial and slightly superior to the tentatively previously placed mesh. This area was then closed from within initially with a [id number] stitch of 0 Vicryl placed from within. This more or less closed up the opening. A 20.[address] mesh with a balloon positioning system was then selected and soaked in antibiotic-containing saline solution. Over the center of the hernia on the abdominal wall, a small stab wound was made and after the mesh was placed in the intraperitoneal location, the catheter was brought up through the abdominal wall and used to inflate the balloon pushing the mesh up against the abdominal wall. Mesh was then circumferentially affixed with absorbable tacking screws and at that point, the balloon was deflated and withdrawn. Good fixation of the mesh was confirmed, and there was a wide coverage of the area of herniation by means of a newly placed mesh which did overlap the previously-placed mesh somewhat. To try and limit recurrent adhesion formation, Interceed mesh was then placed underneath the areas of mesh placement within the abdomen and pelvis, thus displacing the viscera away from those surfaces. At that point, the trocars were removed. The fascia at the 12 mm site was closed with 0 Vicryl stitch. The patient received bilateral transversus abdominis plane blocks and the incisions were anesthetized with 1% lidocaine mixed with Marcaine. The skin incision was closed with 4-0 Vicryl stitch, and the patient was taken to the recovery room in satisfactory condition. There were no evident complications. Physician talent assistant, Rebeca Santiago, played an essential role in assisting in this case, helping to position the patient, retract structures as needed, as well as suturing and cutting sutures when indicated. Her presence improved patient safety and decreased operative time. Martir Bang MD Job #: [id number]
== END 2019-10-22 17:43 | disposition home or self-care (01) ==
LOC: JP.SDS 05:30 → JP.MS 10:45 → JP.SDS 17:43
PROVIDERS: ATTEND Surgery
DX: K43.2 Incisional hernia without obstruction or gangrene (principal); K66.0 Peritoneal adhesions (postprocedural) (postinfection); K21.9 Gastro-esophageal reflux disease without esophagitis; K22.70 Barrett's esophagus without dysplasia; G43.909 Migraine, unspecified, not intractable, without status migrainosus; F17.210 Nicotine dependence, cigarettes, uncomplicated; F31.75 Bipolar disorder, in partial remission, most recent episode depressed; M48.02 Spinal stenosis, cervical region; E78.2 Mixed hyperlipidemia; F41.9 Anxiety disorder, unspecified; J44.9 Chronic obstructive pulmonary disease, unspecified; E78.00 Pure hypercholesterolemia, unspecified; M19.90 Unspecified osteoarthritis, unspecified site; Z79.899 Other long term (current) drug therapy; Z91.040 Latex allergy status; Z88.2 Allergy status to sulfonamides; Z88.8 Allergy status to other drugs, medicaments and biological substances
CPT/HCPCS: 44700; 49657; 94640; A9270; C1713; C1781; J0171; J0690; J1100; J1885; J2020; J2185; J2405; J2704; J2710; J2795; J3010; J3490; J7042; J7050; J7620-GY

== ENCOUNTER 2019-12-03 20:54 | Emergency (ER) | payer MEDICARE, MEDICAID ==
[2019-12-03 21:16] VITALS: BP 133/70; PULSE 67
[2019-12-03] MEDS ORDERED: Ibuprofen 400 MG Tab PO ONE (21:28)
--- NOTE | 2019-12-03 21:34 | EDM.PDOC ---
ED HPI GENERAL MEDICAL PROBLEM - General Chief Complaint: Upper Extremity Injury/Pain Stated Complaint: HURT HAND Time Seen by Provider: 12/03/19 21:15 Source of Information: Reports: Patient, Old Records History Limitations: Reports: No Limitations - History of Present Illness INITIAL COMMENTS - FREE TEXT/NARRATIVE: 49 yo female presents about an hour after onset of medial L wrist pain not associated with injury. Denies a prior hx of the same. No tx prior to arrival. Has pain with thumb movement. No swelling noted at home. 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) Left Hand Pain Score (Numeric/FACES): 10 - Related Data Allergies Allergy/AdvReac Type Severity Reaction Status Date / Time latex Allergy Hives Verified 10/22/19 05:51 Sulfa (Sulfonamide Allergy Rash Verified 10/22/19 05:51 Antibiotics) topiramate [From Topamax] Allergy Confusion Verified 10/22/19 05:51 Home Meds: Home Meds Multivitamin [Multivitamins] 1 tab PO DAILY 09/22/15 [History] Albuterol Sulfate [Proair Respiclick] 2 puff IH QID PRN 10/05/15 [History] hydrOXYzine pamoate [Hydroxyzine Pamoate] 25 mg PO TID PRN 07/15/18 [History] Budesonide/Formoterol [Symbicort 80-4.5 MCG] 2 puff IH BID 11/13/18 [History] Cholecalciferol (Vitamin D3) [Vitamin D3] 2,000 units PO DAILY 11/13/18 [History ] DULoxetine [Cymbalta] 60 mg PO DAILY 11/13/18 [History] Fluticasone Propionate [Flonase] 2 sprays EVELIA DAILY PRN 11/13/18 [History] PARoxetine [Paxil] 10 mg PO DAILY 11/13/18 [History] Pantoprazole Sodium [Protonix] 40 mg PO DAILY 11/13/18 [History] Umeclidinium Brm/Vilanterol Tr [Anoro Ellipta 62.5-25 MCG] 1 puff IH DAILY 11/13 [History] Nicotine [Habitrol] 14 mg TOP DAILY 12/04/18 [History] Nicotine [Nicotrol] 1 puff INH ASDIRECTED PRN 12/04/18 [History] Sennosides/Docusate Sodium [Senokot-S Tablet] 1 - 2 tab PO DAILY PRN 12/04/18 [ History] Pregabalin [Lyrica] 75 mg PO BID 03/23/19 [History] Vitamin B Complex [B Complex] 100 mg PO DAILY 03/23/19 [History] Cyanocobalamin (Vitamin B-12) [Vitamin B-12] 1,000 mcg SL DAILY 07/16/19 [ History] Albuterol/Ipratropium [DuoNeb 3.0-0.5 MG/3 ML] 3 ml IH Q6H PRN 10/11/19 [History ] Lidocaine [Lc-4] 1 applic TOP DAILY PRN 10/11/19 [History] Nicotine Polacrilex [Commit] 4 mg BC ASDIRECTED 10/11/19 [History] Nicotine [Nicoderm CQ] 7 mg TD DAILY 10/11/19 [History] Ondansetron [Zofran ODT] 4 mg PO Q4H PRN 10/11/19 [History] estradioL [Estrace Vaginal] 1 applic VAG BEDTIME 10/11/19 [History] Past Medical History HEENT History: Reports: Allergic Rhinitis, Impaired Vision, Macular Degeneration , Retinal Detachment, Sinusitis Cardiovascular History: Reports: CAD, High Cholesterol Other Cardiovascular History: Carotid artery blockage. 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 left elbow pain- states injury 10yrs ago Neurological History: Reports: Concussion, Headaches, Chronic, Head Trauma, Migraines, Neuropathy, Peripheral, Seizure, Vertigo Other Neuro History: lymes hx Psychiatric History: Reports: Anxiety, Bipolar, Dementia, Depression, Emotional Problems, Learning Disability, Panic Attack, Psych Hospitalization(s), PTSD, Suicide Attempt, Suicidal Ideation Other Psychiatric History: chronic pain syndrome Endocrine/Metabolic History: Reports: None Hematologic History: Reports: B12 Deficiency, Folic Acid Immunologic History: Reports: None Oncologic (Cancer) History: Reports: Cervix Dermatologic History: Reports: Cellulitis - Infectious Disease History Infectious Disease History: Reports: Chicken Pox, Other (See Below) Other Infectious Disease History: hx lymes disease - Past Surgical History Head Surgeries/Procedures: Reports: None HEENT Surgical History: Reports: Tonsillectomy, Other (See Below) Other HEENT Surgeries/Procedures: "tonsils grew back", sinus surgery Cardiovascular Surgical History: Reports: None Respiratory Surgical History: Reports: None GI Surgical History: Reports: Colonoscopy, EGD, Hernia, Abdominal, Samson Fundoplication Other GI Surgeries/Procedures: partial gastrectomy Female Surgical History: Reports: Section, Hysterectomy, Salpingo- Oophorectomy Neurological Surgical History: Reports: None Oncologic Surgical History: Reports: Other (See Below) Other Oncologic Surgeries/Procedures: Hysterectomy Dermatological Surgical History: Reports: None Social & Family History - Family History Family Medical History: Noncontributory - Tobacco Use Smoking Status *Q: Current Every Day Smoker Years of Tobacco use: 37 Packs/Tins Daily: 0.5 Used Tobacco, but Quit: No - Caffeine Use Caffeine Use: Reports: Coffee, Soda Caffeine Use Comment: daily pop - Recreational Drug Use Recreational Drug Use: Yes Recreational Drug Type: Reports: Marijuana/Hashish Recreational Drug Use Frequency: Daily - Living Situation & Occupation Living situation: Reports: Occupation: Unemployed (lives in alone in [place]. Children all grown, one lives in [place], one live in [place] and 1 in [place].) Review of Systems - Review of Systems Review Of Systems: See Below Constitutional: Reports: No Symptoms Musculoskeletal: Reports: Joint Pain (L wrist). Denies: Joint Swelling Skin: Reports: No Symptoms Neurological: Reports: No Symptoms (nothing new, has some chronic issues in that arm for which she is seeing Dr. Mcneal this week. ) ED EXAM, GENERAL - Physical Exam Exam: See Below Exam Limited By: No Limitations General Appearance: Alert, WD/WN, No Apparent Distress Extremities: Normal Inspection, Normal Range of Motion, No Pedal Edema, Other ( tender on palpation to the snuff box area on the L wrist. Pain, but good ROM of the L thumb. Good L wrist ROM. No deformity, swelling, or redness. ). No: Non- Tender, Pedal Edema, Limited Range of Motion, Increased Warmth, Redness Neurological: Alert, Oriented, CN II-XII Intact, Normal Cognition, No Motor/ Sensory Deficits Psychiatric: Normal Affect, Normal Mood Skin Exam: Warm, Dry, Intact, Normal Color, No Rash Course - Vital Signs Text/Narrative:: thumb spica splint applied. Last Recorded V/S: Last Vital Signs Temp 36.5 C 12/03/19 21: Pulse 67 12/03/19 21:20 Resp 16 12/03/19 21:20 BP 133/70 12/03/19 21:20 Pulse Ox 99 12/03/19 21:20 - Orders/Labs/Meds Orders: Active Orders 24 hr Category Date Time Status Ibuprofen [Motrin] Med 12/03/19 21:28 Once 400 mg PO ONETIME ONE Departure - Departure Time of Disposition: 21:40 Disposition: Home, Self-Care 01 Condition: Good Clinical Impression: Tendonitis of wrist, left - Discharge Information *PRESCRIPTION DRUG MONITORING PROGRAM REVIEWED*: No *COPY OF PRESCRIPTION DRUG MONITORING REPORT IN PATIENT MICHAEL: No Instructions: Tendinitis, [id number] Referrals: Johnson Sr MD [Primary Care Provider] - Additional Instructions: Wear splint except when bathing. Take ibuprofen 400 mg every 6 hrs with food. Recheck with your doctor in about a week. Sepsis Event Note - Evaluation Sepsis Screening Result: No Definite Risk - Focused Exam Vital Signs: Vital Signs Temp Pulse Resp BP Pulse Ox 12/03/19 21:20 36.5 C 67 16 133/70 99 12/03/19 21:14 36.5 C 67 16 133/70 99 Date Exam was Performed: 12/03/19 Time Exam was Performed: 21:28 - My Orders Last 24 Hours: My Active Orders 12/03/19 21:28 Ibuprofen [Motrin] 400 mg PO ONETIME ONE - Assessment/Plan Last 24 Hours: My Active Orders 12/03/19 21:28 Ibuprofen [Motrin] 400 mg PO ONETIME ONE
== END 2019-12-03 21:55 | disposition home or self-care (01) ==
LOC: JP.ED 20:54
DX: M77.9 Enthesopathy, unspecified (principal); J44.9 Chronic obstructive pulmonary disease, unspecified; K21.9 Gastro-esophageal reflux disease without esophagitis; F32.9 Major depressive disorder, single episode, unspecified; F17.210 Nicotine dependence, cigarettes, uncomplicated; Z91.040 Latex allergy status; Z88.2 Allergy status to sulfonamides; Z88.8 Allergy status to other drugs, medicaments and biological substances; Z79.51 Long term (current) use of inhaled steroids; Z79.899 Other long term (current) drug therapy
CPT/HCPCS: 99283

== ENCOUNTER 2020-02-04 13:00 | Emergency (ER) | payer MEDICARE, MEDICAID ==
--- NOTE | 2020-02-04 14:15 | EDM.PDOC ---
ED HPI GENERAL MEDICAL PROBLEM - General Chief Complaint: Respiratory Problem Stated Complaint: SOB AND TIGHTNESS IN CHEST Time Seen by Provider: 02/04/20 14:13 Source of Information: Reports: Patient, Family History Limitations: Reports: No Limitations - History of Present Illness INITIAL COMMENTS - FREE TEXT/NARRATIVE: pt has been sob for the past week. She feels very tight in her throat. Onset: Gradual, Other ( this has been going on for 1 week. ) Duration: Hour(s): Location: Reports: Neck, Chest, Other ( Pt feels tight in her throat. ) Associated Symptoms: Reports: Cough, Shortness of Breath Chest Pain Score (Numeric/FACES): 10 - Related Data Allergies Allergy/AdvReac Type Severity Reaction Status Date / Time latex Allergy Hives Verified 02/04/20 13:44 Sulfa (Sulfonamide Allergy Rash Verified 02/04/20 13:44 Antibiotics) topiramate [From Topamax] Allergy Confusion Verified 02/04/20 13:44 Home Meds: Home Meds Albuterol Sulfate [Proair Respiclick] 2 puff IH QID PRN 10/05/15 [History] hydrOXYzine pamoate [Hydroxyzine Pamoate] 25 mg PO TID PRN 07/15/18 [History] Budesonide/Formoterol [Symbicort 80-4.5 MCG] 2 puff IH BID 11/13/18 [History] Cholecalciferol (Vitamin D3) [Vitamin D3] 2,000 units PO DAILY 11/13/18 [History ] DULoxetine [Cymbalta] 60 mg PO DAILY 11/13/18 [History] Fluticasone Propionate [Flonase] 2 sprays EVELIA DAILY PRN 11/13/18 [History] PARoxetine [Paxil] 10 mg PO DAILY 11/13/18 [History] Pantoprazole Sodium [Protonix] 40 mg PO DAILY 11/13/18 [History] Umeclidinium Brm/Vilanterol Tr [Anoro Ellipta 62.5-25 MCG] 1 puff IH DAILY 11/13 [History] Nicotine [Habitrol] 14 mg TOP DAILY 12/04/18 [History] Nicotine [Nicotrol] 1 puff INH ASDIRECTED PRN 12/04/18 [History] Sennosides/Docusate Sodium [Senokot-S Tablet] 1 - 2 tab PO DAILY PRN 12/04/18 [ History] Pregabalin [Lyrica] 75 mg PO BID 03/23/19 [History] Vitamin B Complex [B Complex] 100 mg PO DAILY 03/23/19 [History] Cyanocobalamin (Vitamin B-12) [Vitamin B-12] 1,000 mcg SL DAILY 07/16/19 [ History] Albuterol/Ipratropium [DuoNeb 3.0-0.5 MG/3 ML] 3 ml IH Q6H PRN 10/11/19 [History ] Lidocaine [Lc-4] 1 applic TOP DAILY PRN 10/11/19 [History] Nicotine Polacrilex [Commit] 4 mg BC ASDIRECTED 10/11/19 [History] Nicotine [Nicoderm CQ] 7 mg TD DAILY 10/11/19 [History] Ondansetron [Zofran ODT] 4 mg PO Q4H PRN 10/11/19 [History] estradioL [Estrace Vaginal] 1 applic VAG BEDTIME 10/11/19 [History] Acetaminophen/HYDROcodone [[place] 325-5 MG] 1 tab PO Q6H PRN 02/04/20 [History] Calcium Citrate 1 tab PO DAILY 02/04/20 [History] Past Medical History HEENT History: Reports: Allergic Rhinitis, Impaired Vision, Macular Degeneration , Retinal Detachment, Sinusitis Cardiovascular History: Reports: CAD, High Cholesterol Other Cardiovascular History: Carotid artery blockage. Respiratory History: Reports: Asthma, Bronchitis, Recurrent, COPD, Pneumonia, Recurrent, Sleep Apnea Gastrointestinal History: Reports: Chronic Constipation, Chronic Diarrhea, Colon Polyp, GERD, Hemorrhoids, Hiatal Hernia, Irritable Bowel Syndrome, Other ( See Below) Other Gastrointestinal History: nguyễn Genitourinary History: Reports: Renal Calculus, UTI, Recurrent DATA ANALYST History: Reports: Ectopic , , Spontaneous Musculoskeletal History: Reports: Arthritis, Back Pain, Chronic, Fibromyalgia, Neck Pain, Chronic, Osteoarthritis, Other (See Below) Other Musculoskeletal History: neuropathy. left elbow pain- states injury 10yrs ago Neurological History: Reports: Concussion, Headaches, Chronic, Head Trauma, Migraines, Neuropathy, Peripheral, Seizure, Vertigo Other Neuro History: lymes hx Psychiatric History: Reports: Anxiety, Bipolar, Dementia, Depression, Emotional Problems, Learning Disability, Panic Attack, Psych Hospitalization(s), PTSD, Suicide Attempt, Suicidal Ideation Other Psychiatric History: chronic pain syndrome Endocrine/Metabolic History: Reports: None Hematologic History: Reports: B12 Deficiency, Folic Acid Immunologic History: Reports: None Oncologic (Cancer) History: Reports: Cervix Dermatologic History: Reports: Cellulitis - Infectious Disease History Infectious Disease History: Reports: Chicken Pox, Other (See Below) Other Infectious Disease History: hx lymes disease - Past Surgical History Head Surgeries/Procedures: Reports: None HEENT Surgical History: Reports: Tonsillectomy, Other (See Below) Other HEENT Surgeries/Procedures: "tonsils grew back", sinus surgery Cardiovascular Surgical History: Reports: None, Other (See Below) Other Cardiovascular Surgeries/Procedures: will be placing pacer January Respiratory Surgical History: Reports: None GI Surgical History: Reports: Colonoscopy, EGD, Hernia, Abdominal, Samson Fundoplication Other GI Surgeries/Procedures: partial gastrectomy Female Surgical History: Reports: Section, Hysterectomy, Salpingo- Oophorectomy Neurological Surgical History: Reports: None Musculoskeletal Surgical History: Reports: None Oncologic Surgical History: Reports: Other (See Below) Other Oncologic Surgeries/Procedures: Hysterectomy Dermatological Surgical History: Reports: None Social & Family History - Family History Family Medical History: Noncontributory - Tobacco Use Smoking Status *Q: Current Every Day Smoker Years of Tobacco use: 40 Packs/Tins Daily: 1 Used Tobacco, but Quit: No - Caffeine Use Caffeine Use: Reports: Coffee, Soda Caffeine Use Comment: daily pop - Recreational Drug Use Recreational Drug Use: Yes Drug Use in Last 12 Months: Yes Recreational Drug Type: Reports: Marijuana/Hashish Recreational Drug Use Frequency: Daily - Living Situation & Occupation Living situation: Reports: Occupation: Unemployed (lives in alone in [place]. Children all grown, one lives in [place], one live in [place] and 1 in [place].) ED ROS GENERAL - Review of Systems Review Of Systems: See Below Constitutional: Reports: No Symptoms, Fever HEENT: Reports: Throat Pain, Other (pt feels like she is swollen in the neck area. She has the sensation of sob although she has good sats. She has a low grade temp at 99. ) Cardiovascular: Reports: Dyspnea on Exertion Endocrine: Reports: No Symptoms GI/Abdominal: Reports: No Symptoms : Reports: No Symptoms Musculoskeletal: Reports: No Symptoms Skin: Reports: No Symptoms Neurological: Reports: No Symptoms ED EXAM, GENERAL - Physical Exam Exam: See Below Free Text/Narrative:: pt has felt sob due to the swelling that she thinks she notes in the neck. This has been going on for 1 week. She is not having a cough. Exam Limited By: No Limitations General Appearance: Alert, Mild Distress Ears: Normal TMs Nose: Normal Inspection Throat/Mouth: Other ( fullness in the neck and she is tender. throat did look mildly red. A strept test was obtained. ) Head: Atraumatic Neck: Tender Lateral, Other (possible enlargement of thyroid) Respiratory/Chest: No Respiratory Distress Cardiovascular: Regular Rate, Rhythm GI/Abdominal: Soft, Non-Tender (Female) Exam: Deferred Rectal (Female) Exam: Deferred Back Exam: Normal Inspection Extremities: Normal Inspection Neurological: Alert, Oriented, Normal Cognition Psychiatric: Anxious Course - Vital Signs Last Recorded V/S: Last Vital Signs Temp 37.2 C 02/04/20 13:45 Pulse 74 02/04/20 15:31 Resp 14 02/04/20 15:31 BP 104/53 L 02/04/20 15:31 Pulse Ox 100 02/04/20 15:31 - Orders/Labs/Meds Orders: Active Orders 24 hr Category Date Time Status CULTURE STREP A CONFIRMATION [RM] Stat Lab 02/04/20 14:16 Results STREP SCRN A RAPID W CULT CONF [RM] Stat Lab 02/04/20 14:16 Results Isolation [COMM] Routine Oth 02/04/20 14:11 Ordered Labs: Laboratory Tests 02/04/20 02/04/20 02/04/20 Range/Units 12:55 12:55 13:53 WBC (4.5-11.0) K/uL RBC (3.30-5.50) M/uL Hgb (12.0-15.0) g/dL Hct (36.0-48.0) % MCV (80-98) fL MCH (27-31) pg MCHC (32-36) % Plt Count (150-400) K/uL Neut % (Auto) (36-66) % Lymph % (Auto) (24-44) % Forest % (Auto) (2-6) % Eos % (Auto) (2-4) % Baso % (Auto) (0-1) % Sodium (140-148) mmol/L Potassium (3.6-5.2) mmol/L Chloride (100-108) mmol/L Carbon Dioxide (21-32) mmol/L Anion Gap (5.0-14.0) mmol/L BUN (7-18) mg/dL Creatinine (0.6-1.0) mg/dL Est Cr Clr Drug Dosing mL/min Estimated GFR (MDRD) (>60) Glucose (74-106) mg/dL Calcium (8.5-10.1) mg/dL Total Bilirubin (0.2-1.0) mg/dL AST (15-37) U/L ALT (12-78) U/L Alkaline Phosphatase (46-116) U/L C-Reactive Protein 0.21 (0.0-0.3) mg/dL NT-Pro-B Natriuret Pep 189 H (5-125) pg/mL Total Protein (6.4-8.2) g/dL Albumin (3.4-5.0) g/dL Globulin (2.3-3.5) g/dL Albumin/Globulin Ratio (1.2-2.2) Free T3 2.55 (2.18-3.98) pg/dL TSH, Ultra Sensitive 8.011 H (0.358-3.740) uIU/mL 02/04/20 02/04/20 Range/Units 13:55 13:55 WBC 8.7 (4.5-11.0) K/uL RBC 3.62 (3.30-5.50) M/uL Hgb 10.6 L (12.0-15.0) g/dL Hct 34.6 L (36.0-48.0) % MCV 96 (80-98) fL MCH 29 (27-31) pg MCHC 31 L (32-36) % Plt Count 208 (150-400) K/uL Neut % (Auto) 61 (36-66) % Lymph % (Auto) 22 L (24-44) % Forest % (Auto) 14 H (2-6) % Eos % (Auto) 3 (2-4) % Baso % (Auto) 1 (0-1) % Sodium 141 (140-148) mmol/L Potassium 4.1 (3.6-5.2) mmol/L Chloride 104 (100-108) mmol/L Carbon Dioxide 32 (21-32) mmol/L Anion Gap 4.6 L (5.0-14.0) mmol/L BUN 15 (7-18) mg/dL Creatinine 1.0 (0.6-1.0) mg/dL Est Cr Clr Drug Dosing 62.65 mL/min Estimated GFR (MDRD) 58 L (>60) Glucose 104 (74-106) mg/dL Calcium 8.5 (8.5-10.1) mg/dL Total Bilirubin 0.2 (0.2-1.0) mg/dL AST 16 (15-37) U/L ALT 25 (12-78) U/L Alkaline Phosphatase 75 (46-116) U/L C-Reactive Protein (0.0-0.3) mg/dL NT-Pro-B Natriuret Pep (5-125) pg/mL Total Protein 6.3 L (6.4-8.2) g/dL Albumin 3.1 L (3.4-5.0) g/dL Globulin 3.2 (2.3-3.5) g/dL Albumin/Globulin Ratio 1.0 L (1.2-2.2) Free T3 (2.18-3.98) pg/dL TSH, Ultra Sensitive (0.358-3.740) uIU/mL - Re-Assessments/Exams Free Text/Narrative Re-Assessment/Exam: 02/04/20 16:33 tsh elevated, thyroid tender, chest xray is clear, influ neg, strept neg. wbc is normal. 02/04/20 16:34 Departure - Departure Time of Disposition: 16:02 Disposition: Home, Self-Care 01 Condition: Fair Clinical Impression: Thyroiditis - Discharge Information Referrals: Alexus Myers PA-C [Primary Care Provider] - Forms: ED Department Discharge Care Plan Goals: rtc for us of the thyroid, appt at the clinic with Alexus Myers in the next 2-3 days. Sepsis Event Note - Evaluation Sepsis Screening Result: No Definite Risk - Focused Exam Vital Signs: Vital Signs Temp Pulse Resp BP Pulse Ox 02/04/20 15:31 74 14 104/53 L 100 02/04/20 13:45 37.2 C 80 16 115/56 L 99 02/04/20 13:26 37.2 C 80 16 115/56 L 99 Date Exam was Performed: 02/04/20 Time Exam was Performed: 16:27 - My Orders Last 24 Hours: My Active Orders 02/04/20 14:11 Isolation [COMM] Routine 02/04/20 14:16 CULTURE STREP A CONFIRMATION [RM] Stat STREP SCRN A RAPID W CULT CONF [RM] Stat - Assessment/Plan Last 24 Hours: My Active Orders 02/04/20 14:11 Isolation [COMM] Routine 02/04/20 14:16 CULTURE STREP A CONFIRMATION [RM] Stat STREP SCRN A RAPID W CULT CONF [RM] Stat
[2020-02-04 15:33] VITALS: BP 104/53; PULSE 74
--- NOTE | 2020-02-04 16:09 | CR ---
CHEST: 2 view CLINICAL HISTORY:SOB COMPARISON:2019 FINDINGS: The heart size, pulmonary vascularity and hilar structures are normal. No infiltrate effusion or pneumothorax is seen. IMPRESSION: No acute cardiopulmonary process.
== END 2020-02-04 16:30 | disposition home or self-care (01) ==
LOC: JP.ED 13:00
DX: E06.9 Thyroiditis, unspecified (principal); I25.10 Atherosclerotic heart disease of native coronary artery without angina pectoris; E78.00 Pure hypercholesterolemia, unspecified; J44.9 Chronic obstructive pulmonary disease, unspecified; F31.9 Bipolar disorder, unspecified; F03.90 Unspecified dementia, unspecified severity, without behavioral disturbance, psychotic disturbance, mood disturbance, and anxiety; Z79.899 Other long term (current) drug therapy; K21.9 Gastro-esophageal reflux disease without esophagitis; F41.9 Anxiety disorder, unspecified; G62.9 Polyneuropathy, unspecified; F17.210 Nicotine dependence, cigarettes, uncomplicated; Z88.2 Allergy status to sulfonamides; Z91.040 Latex allergy status
CPT/HCPCS: 36415; 71046; 71046-26; 80053; 83880; 84443; 84481; 85025; 86140; 87081; 87804; 87804-59; 87880-QW; 99283; 99285-25

== ENCOUNTER 2020-08-14 09:09 | Day surgery (SDC) | payer MEDICARE, MEDICAID ==
[2020-08-14] MEDS ORDERED: fentaNYL 100 MCG/2 ML SDV ONE (09:13)
[2020-08-14] MEDS ORDERED: Propofol 200 MG/20 ML SDV ONE (09:13)
[2020-08-14] MEDS ORDERED: Midazolam 1 MG/ML 2 ML SDV ONE (09:13)
[2020-08-14] MEDS ORDERED: Glycopyrrolate 0.2 MG/ML 2 ML SDV IVPUSH ONE (10:00)
[2020-08-14] MEDS ORDERED: Cyanocobalamin (Vitamin B12) 1,000 MCG/ML SDV IM ONE (10:00)
[2020-08-14] MEDS ORDERED: Lactated Ringers 1,000 ML IV ONE (10:00)
[2020-08-14] MEDS ORDERED: MVI, Adult with Vitamin K 10 ML, Thiamine 200 MG, Chromium/Copper/Mang/Selen/Zn 1 ML in... IV ONE ×4 (11:00)
[2020-08-14] MEDS ORDERED: Ondansetron 4 MG/2 ML SDV ONE (11:50)
[2020-08-14] MEDS ORDERED: Sodium Chloride 0.9% 1,000 ML IV SCH (12:30)
[2020-08-14] MEDS ORDERED: diphenhydrAMINE 50 MG/ML SDV IVPUSH PRN (13:30)
[2020-08-14] MEDS ORDERED: Hydrocortisone Sodium Succinate 100 MG/2 ML SDV IVPUSH PRN (13:30)
[2020-08-14] MEDS ORDERED: Famotidine 20 MG/2 ML SDV IVPUSH PRN (13:30)
[2020-08-14 14:00] VITALS: BP 121/66; PULSE 68
--- NOTE | 2020-08-17 12:25 | OR ---
DATE OF PROCEDURE: 08/14/2020 SURGEON: Martir Bang MD PREOPERATIVE DIAGNOSES: 1. Recurrent episodes of nausea and vomiting. 2. History of Brush esophagus. POSTOPERATIVE DIAGNOSES: 1. Recurrent episodes of nausea and vomiting. 2. History of Brush esophagus. 3. Large recurrent paraesophageal hernia. 4. Mild antral gastritis. OPERATIVE PROCEDURES: Esophagogastroduodenoscopy with: 1. Biopsies of the esophagogastric junction. 2. Biopsies of the antrum for CLOtest. ANESTHESIA: IV sedation. INDICATION FOR PROCEDURE: The patient is status post 2 previous procedures for reflux problems and hiatal hernia repairs. She presents now with an ongoing history of intermittent nausea and vomiting, epigastric discomfort, and heartburn. She also has a noted history of Brsuh esophagus. The plan is to proceed with an upper GI endoscopy with biopsies and/or dilation as indicated. Potential risks, including bleeding and perforation, were discussed, and the patient wishes to proceed. DETAILS OF PROCEDURE: The patient was taken to the operating room and placed in a left lateral decubitus position. IV sedation was administered, after which the upper GI endoscope was passed orally through the length of the esophagus and into the stomach with retroflexion view of the fundus and thereafter through the pyloric channel and into the proximal duodenum. Findings included normal hypopharynx, larynx, upper esophageal sphincter, and esophageal body. At the EG junction, the patient was noted to have a large recurrent hernia measuring around 5 cm and associated with marked inflammation in the area at and above the esophagogastric junction with upper extension of the gastroesophageal junction mucosal line, consistent with known Brush esophagus. Within the stomach, retroflexion revealed this to be an obvious paraesophageal hernia with there being 2 upward extensions on the stomach alongside the main course of the esophagus into the stomach. There was some patchy redness in the antrum. Otherwise, the remainder of the exam from the stomach and proximal duodenum was unremarkable. At this point, biopsies were obtained from the esophagogastric junction and sent for histologic evaluation. Biopsies were sent from the antrum and sent for CLOtest for H pylori. Minimal bleeding from the biopsy sites was seen, and the procedure was then concluded. I would like to schedule and follow the patient postoperatively. This female has had already 2 procedures for repair of the hiatal hernia and reflux, and given the large extent of the present paraesophageal hernia, further repair would probably be unsuccessful. Given this, she would probably be best treated by repair of that hernia with mesh technique with concurrent partial gastrectomy with Caroline-en-Y reconstruction, which would obviate the problems with the reflux. If the hernia continues to recur over time, this will be scheduled for 08/21/2020. Martir Bang MD /[id number]
== END 2020-08-14 14:15 | disposition home or self-care (01) ==
LOC: JP.SDS 09:09
PROVIDERS: ATTEND Surgery
DX: K22.70 Barrett's esophagus without dysplasia (principal); K44.9 Diaphragmatic hernia without obstruction or gangrene; K29.70 Gastritis, unspecified, without bleeding; G47.33 Obstructive sleep apnea (adult) (pediatric); J44.9 Chronic obstructive pulmonary disease, unspecified; F17.200 Nicotine dependence, unspecified, uncomplicated; Z88.2 Allergy status to sulfonamides; Z91.040 Latex allergy status; Z88.8 Allergy status to other drugs, medicaments and biological substances
CPT/HCPCS: 43239; 87081; 88305; J2250; J2405; J2704; J3010; J3411; J3420; J3490; J7030; J7050; J7120; Q0138

== ENCOUNTER 2020-08-21 08:40 | Inpatient (IN) | payer MEDICARE, MEDICAID ==
[~2020-08-21 08:40] MED LIST changes: +Dexamethasone 4 MG/ML SDV ONE; +Glycopyrrolate 0.2 MG/ML 5 ML MDV ONE; +Meropenem 500 MG SDV ONE; -Midazolam 1 MG/ML 2 ML SDV ONE; +Neostigmine Methylsulfate 1 MG/ML 5 ML Syringe ONE; +Ondansetron 4 MG/2 ML SDV ONE; +Rocuronium 50 MG/5 ML Vial ONE; +Succinylcholine 200 MG/10 ML MDV ONE; -fentaNYL 100 MCG/2 ML SDV ONE; +fentaNYL 250 MCG/5 ML SDV ONE
[2020-08-21] MEDS ORDERED: Acetaminophen 500 MG Tab PO ONE (09:15)
[2020-08-21] MEDS ORDERED: Dextrose 5%-Lactated Ringers 1,000 ML IV SCH (09:15)
[2020-08-21] MEDS ORDERED: Scopolamine 1.5 MG Transdermal Patch TOP SCH (09:15)
[2020-08-21] MEDS ORDERED: Albuterol/Ipratropium 3.0-0.5 MG/3 ML Neb Soln NEB ONE (10:00)
[2020-08-21] MEDS ORDERED: cefOXitin 2 GM in Sodium Chloride 0.9% 50 ML IV ONE (10:00)
[2020-08-21] MEDS ORDERED: fentaNYL 250 MCG/5 ML SDV ONE ×2 (10:14→10:15)
[2020-08-21] MEDS ORDERED: Ketamine 500 MG/5 ML MDV IV SCH (10:30)
[2020-08-21] MEDS ORDERED: Ropivacaine 40 ML, dexAMETHasone 8 MG, EPINEPHrine 0.4 MG, Sodium Chloride 0.9% 37.6 ML NERVRT SCH ×4 (10:30)
[2020-08-21] MEDS ORDERED: Ketamine 50 MG in Sodium Chloride 0.9% 49.5 ML IV SCH (10:30)
[2020-08-21] MEDS ORDERED: Magnesium Sulfate 2.5 GM in Sodium Chloride 0.9% 100 ML IV SCH (10:30)
[2020-08-21] MEDS ORDERED: Rocuronium 50 MG/5 ML Vial ONE (11:23)
[2020-08-21] MEDS ORDERED: Lactated Ringers 1,000 ML ONE (11:25)
[2020-08-21] MEDS ORDERED: HYDROmorphone/Normal Saline 15 MG/30 ML PCA IV PRN (14:05)
[2020-08-21] MEDS ORDERED: Cyclobenzaprine 10 MG Tab PO PRN (14:34)
[2020-08-21] MEDS ORDERED: traZODone 50 MG Tab PO PRN (14:41)
[2020-08-21] MEDS ORDERED: Acetaminophen 500 MG Tab PO PRN (15:00)
[2020-08-21] MEDS ORDERED: diphenhydrAMINE 50 MG/ML SDV IVPUSH PRN (15:00)
[2020-08-21] MEDS ORDERED: Labetalol 20 MG/4 ML Syringe IVPUSH PRN (15:00)
[2020-08-21] MEDS ORDERED: Metoclopramide 10 MG/2 ML SDV IVPUSH PRN (15:00)
[2020-08-21] MEDS ORDERED: Naloxone 0.4 MG/ML SDV IV PRN (15:00)
[2020-08-21] MEDS ORDERED: hydrOXYzine HCL 100 MG/2 ML SDV IM PRN (15:00)
[2020-08-21] MEDS ORDERED: Ondansetron 4 MG/2 ML SDV IVPUSH PRN (15:00)
[2020-08-21] MEDS ORDERED: Albuterol/Ipratropium 3.0-0.5 MG/3 ML Neb Soln INH PRN (15:00)
[2020-08-21] MEDS: Dextrose 5%-Lactated Ringers 1,000 ML IV SCH ×2 (15:09→23:00)
[2020-08-21] MEDS: Albuterol/Ipratropium 3.0-0.5 MG/3 ML Neb Soln INH SCH ×2 (16:05→20:31)
[2020-08-21] MEDS: cefOXitin 2 GM in Sodium Chloride 0.9% 50 ML IV SCH ×2 (16:25→22:55)
[2020-08-21] MEDS: MVI, Adult with Vitamin K 10 ML, Thiamine 200 MG, Chromium/Copper/Mang/Selen/Zn 1 ML in... IV SCH ×4 (16:25)
[2020-08-21] MEDS: Acetaminophen 500 MG Tab PO SCH ×2 (16:27→23:01)
[2020-08-21] MEDS: Pantoprazole 40 MG Vial IVPUSH SCH (16:27)
[2020-08-21] MEDS: Formoterol/Mometasone 100-5 MCG 8.8 GM Inhaler IH SCH ×2 (20:32→20:35)
[2020-08-22] MEDS: cefOXitin 2 GM in Sodium Chloride 0.9% 50 ML IV SCH ×4 (03:58→21:48)
[2020-08-22] MEDS ORDERED: Iopamidol 510 MG/ML 50 ML SDV PO ONE (04:00)
[2020-08-22] MEDS ORDERED: Iopamidol 612 MG/ML 50 ML SDV PO ONE (04:00)
[2020-08-22] MEDS: Dextrose 5%-Lactated Ringers 1,000 ML IV SCH ×2 (05:24→14:17)
[2020-08-22] MEDS ORDERED: Lactated Ringers 500 ML IV SCH (07:00)
[2020-08-22] MEDS: Albuterol/Ipratropium 3.0-0.5 MG/3 ML Neb Soln INH SCH ×4 (07:47→20:05)
[2020-08-22] MEDS: Formoterol/Mometasone 100-5 MCG 8.8 GM Inhaler IH SCH ×2 (07:52→20:06)
[2020-08-22] MEDS: ANORO ELLIPTA INH SCH (09:48)
[2020-08-22] MEDS: Bisacodyl 5 MG Tab PO SCH ×2 (09:49→20:05)
[2020-08-22] MEDS: DULoxetine 30 MG Cap PO SCH (09:49)
[2020-08-22] MEDS: Acetaminophen 500 MG Tab PO SCH ×3 (09:49→23:35)
[2020-08-22] MEDS: Docusate Sodium 100 MG Cap PO SCH ×2 (09:49→20:05)
[2020-08-22] MEDS: SCOPOLAMINE PATCH CHECK TOP SCH (09:50)
[2020-08-22] MEDS: PARoxetine 20 MG Tab PO SCH (09:50)
[2020-08-22] MEDS: Magnesium Sulfate/Water 2 GM/50 ML BAG IV SCH ×3 (09:51→21:48)
[2020-08-22] MEDS: Lactated Ringers 500 ML IV SCH ×2 (11:51→14:01)
[2020-08-22] MEDS: Pantoprazole 40 MG Vial IVPUSH SCH (16:01)
[2020-08-22] MEDS: Sodium Ferric Gluconate Cmplex 250 MG in Sodium Chloride 0.9% 100 ML IV SCH (17:51)
[2020-08-22] MEDS ORDERED: Dextrose 5%-Lactated Ringers 1,000 ML IV SCH (20:00)
[2020-08-22] MEDS: Nicotine 14 MG/24 Hr Patch TRDERM SCH (20:03)
[2020-08-22] MEDS: MVI, Adult with Vitamin K 10 ML, Thiamine 200 MG, Chromium/Copper/Mang/Selen/Zn 1 ML in... IV SCH ×4 (21:48)
[2020-08-23] MEDS: cefOXitin 2 GM in Sodium Chloride 0.9% 50 ML IV SCH ×4 (04:01→21:49)
[2020-08-23] MEDS: Magnesium Sulfate/Water 2 GM/50 ML BAG IV SCH ×4 (04:01→22:33)
[2020-08-23] MEDS: Albuterol/Ipratropium 3.0-0.5 MG/3 ML Neb Soln INH SCH ×4 (07:12→20:11)
[2020-08-23] MEDS: Formoterol/Mometasone 100-5 MCG 8.8 GM Inhaler IH SCH ×2 (07:12→20:11)
[2020-08-23] MEDS: ANORO ELLIPTA INH SCH (07:18)
[2020-08-23] MEDS ORDERED: Dextrose 5%-Lactated Ringers 1,000 ML IV SCH (08:00)
[2020-08-23] MEDS: DULoxetine 30 MG Cap PO SCH (08:07)
[2020-08-23] MEDS: PARoxetine 20 MG Tab PO SCH (08:07)
[2020-08-23] MEDS: Bisacodyl 5 MG Tab PO SCH ×2 (08:08→20:10)
[2020-08-23] MEDS: Acetaminophen 500 MG Tab PO SCH ×2 (08:08→15:27)
[2020-08-23] MEDS: Docusate Sodium 100 MG Cap PO SCH ×2 (08:08→20:10)
[2020-08-23] MEDS: SCOPOLAMINE PATCH CHECK TOP SCH (08:09)
[2020-08-23] MEDS: Nicotine 14 MG/24 Hr Patch TRDERM SCH (08:13)
[2020-08-23] MEDS: oxyCODONE 5 MG Tab PO PRN ×3 (08:55→22:33)
[2020-08-23] MEDS ORDERED: Cyanocobalamin (Vitamin B12) 1,000 MCG/ML SDV IM ONE (09:00)
[2020-08-23] MEDS: Potassium Phos in 0.9 % NaCl 15 MMOL in Premix Bag 1 BAG IV SCH ×8 (09:54→20:10)
[2020-08-23] MEDS: Sodium Ferric Gluconate Cmplex 250 MG in Sodium Chloride 0.9% 100 ML IV SCH (11:51)
[2020-08-23] MEDS: MVI, Adult with Vitamin K 10 ML, Thiamine 200 MG, Chromium/Copper/Mang/Selen/Zn 1 ML in... IV SCH ×4 (15:14)
[2020-08-23] MEDS: Pantoprazole 40 MG Vial IVPUSH SCH (15:27)
[2020-08-24] MEDS: Acetaminophen 500 MG Tab PO SCH ×2 (01:15→07:22)
[2020-08-24] MEDS: cefOXitin 2 GM in Sodium Chloride 0.9% 50 ML IV SCH (03:23)
[2020-08-24] MEDS: oxyCODONE 5 MG Tab PO PRN ×2 (03:58→08:04)
[2020-08-24] MEDS: Magnesium Sulfate/Water 2 GM/50 ML BAG IV SCH (03:59)
[2020-08-24 06:46] VITALS: BP 148/73
[2020-08-24] MEDS: Albuterol/Ipratropium 3.0-0.5 MG/3 ML Neb Soln INH SCH (07:28)
[2020-08-24] MEDS: Formoterol/Mometasone 100-5 MCG 8.8 GM Inhaler IH SCH (07:31)
[2020-08-24 07:44] VITALS: PULSE 90
[2020-08-24] MEDS: ANORO ELLIPTA INH SCH (07:44)
[2020-08-24] MEDS ORDERED: Magnesium Hydroxide 400 MG/5 ML Susp 30 ML Cup PO ONE (09:01)
[2020-08-24] MEDS: Nicotine 14 MG/24 Hr Patch TRDERM SCH (09:03)
[2020-08-24] MEDS: Bisacodyl 5 MG Tab PO SCH (09:05)
[2020-08-24] MEDS: DULoxetine 30 MG Cap PO SCH (09:05)
[2020-08-24] MEDS: Docusate Sodium 100 MG Cap PO SCH (09:05)
[2020-08-24] MEDS: PARoxetine 20 MG Tab PO SCH (09:05)
--- NOTE | 2020-08-24 09:39 | CR ---
UGI Limited HISTORY: Postbariatric surgery FINDINGS: Patient swallowed water-soluble contrast. Upright views of the abdomen show no evidence of extravasation or obstruction. There are surgical drains in the left upper quadrant area IMPRESSION: Status post bariatric surgery No extravasation or obstruction seen
--- NOTE | 2020-08-24 15:55 | DISCH ---
ADMISSION DIAGNOSES: Recurrent paraesophageal hernia, status post Samson fundoplication, anxiety, depression, asthma, bipolar 1 disorder, carotid artery disease, cervical cancer, chronic constipation, chronic diarrhea, chronic obstructive pulmonary disease, fibromyalgia, gastroesophageal reflux disease, hypercholesterolemia, macular degeneration, migraine headaches, osteoarthritis, history of seizure, sleep apnea, and tobacco dependence. DISCHARGE DIAGNOSES: Exploratory laparotomy with: 1. Esophagogastrectomy with Caroline-en-Y esophagojejunostomy. 2. Repair of recurrent paraesophageal hernia. 3. Small bowel resection. POSTOPERATIVE DIAGNOSES: 1. Recurrent paraesophageal hernia with proximal stomach unsustainable for redo fundoplication or anastomosis. 2. Segment of small bowel ischemic after mobilization for Caroline-en-Y small bowel reformation. 3. Iron deficiency anemia. HISTORY: Irasema Landaverde is a 50-year-old female with persistent nausea and vomiting and GERD. After preoperative evaluation and discussion of possible risks and possible complications, she wished to proceed with surgical procedure. HOSPITAL COURSE: Keily had her surgery on 08/21/2020. She had no operative complications. On postoperative day #1, her IV was decreased to 125 mL per hour, then decreased to 100 mL per hour, started on step 2 gastric bypass diet with no cereal. Pertinent home medications were started. K-Phos was replaced. She received ferric gluconate 250 mg IV piggyback on day of operation and postop day 1. On postoperative day 2, SEED PELLETER was discontinued, started on oral pain medication, oxycodone, and her activity was good. Oral intake was adequate. On postoperative day #3, she was able to be discharged to home without any complications. PHYSICAL EXAMINATION: GENERAL: Irasema Landaverde is a pleasant 50-year-old female. VITAL SIGNS: Height is 5 feet 2 inches. Weight is 176 pounds. BMI is 32.2. TPR at 0643; 98, 97, 16; blood pressure 148/73. HEENT: Negative. NECK: Supple. HEART: Regular rate and rhythm. LUNGS: Clear. ABDOMEN: Aquacel dressings on, it will be replaced. She has 2 LESLEY drains, these will be discontinued prior to discharge. Abdominal binder is on. EXTREMITIES: Without peripheral edema. DISPOSITION: Discharged to home. CONDITION: Stable and improving. FOLLOWUP APPOINTMENT: With Rebeca Santiago PA-C, on 08/31/2020 at 10 a.m. NEW PRESCRIPTIONS: 1. Colace 100 mg p.o. b.i.d. #60. 2. Dulcolax 10 mg oral b.i.d. 3. Nicotrol 14 mg patch every 24 hours. 4. Oxycodone 5 mg every 6 hours p.r.n. pain, #28. 5. Tylenol 1000 mg q.8 hours #100, p.r.n. pain. To resume home medications of; 1. Albuterol sulfate 2 puffs inhalation 4 times a day p.r.n. 2. DuoNeb 3 mL every 6 hours p.r.n. shortness of breath. 3. Symbicort 80/4.5, 2 puffs inhalation b.i.d. 4. Cymbalta 60 mg oral daily. 5. Voltaren gel 2 g topical 4 times a day. 6. Flonase 2 sprays intranasally p.r.n. rhinitis. 7. Lidocaine 1 applicator topical as directed p.r.n. pain. 8. Zofran 4 mg ODT every 4 hours p.r.n. nausea, vomiting. 9. Paxil 20 mg oral daily. 10.Protonix 40 mg oral daily. 11.Senna-S, 1 to 2 tabs p.r.n. constipation. 12.Anoro Ellipta 62.5/25 mcg, 1 puff inhalation daily. 13.Trazodone 25 to 50 mg oral every evening. Discontinue taking calcium citrate, vitamin D3, B12, hydrocodone, multivitamin, Nicotrol inhalation, turmeric, vitamin B complex. DIET: After discharge step 2 gastric bypass diet with no cereal for 2 weeks until 09/09/2020. Drink 8 to 10 glasses of water a day. ACTIVITY: No lifting greater than 10 pounds for 6 weeks. Other activity: Walk at least 6 times daily inside your home. Driving: Do not drive for 1 week and while on pain medication. Shower/bathing: May shower. DISCHARGE INSTRUCTIONS: Notify provider if any fever, increased pain, swelling, redness, nausea, or vomiting. Wound care. Keep site clean and dry. Use incentive spirometer 10 times every hour while awake. To take off Aquacel dressing in 3 days and to keep a food journal and keep track of liquid intake.
--- NOTE | 2020-08-26 11:30 | PN ---
DATE OF SERVICE: 08/23/2020 The patient has been afebrile with stable vital signs. Her output has picked up quite nicely, and now her creatinine is back down to 1.0. Otherwise, phosphatase is quite low and we will give her some K-Phos today. She will stay on a step 2 diet, and we will switch her over to oral pain medication. Dietary will need to see the patient tomorrow, and she will likely be ready for discharge home tomorrow. Martir Bang MD /[id number]
--- NOTE | 2020-08-26 11:45 | OR ---
DATE OF PROCEDURE: 08/21/2020 SURGEON: Martir Bang MD PREOPERATIVE DIAGNOSIS: Multiply recurrent paraesophageal diaphragmatic hernia with severe ongoing gastroesophageal reflux disease. POSTOPERATIVE DIAGNOSES: 1. Multiply recurrent paraesophageal hernia on proximal stomach, suitable for redo fundoplication or use as an anastomotic site. 2. Segment of small bowel ischemic after immobilization for formation of Caroline-en-Y small bowel configuration. OPERATIVE PROCEDURES: Exploratory laparotomy with: 1. Esophagogastrectomy with Caroline-en-Y esophagojejunostomy (48256). 2. Repair of recurrent paraesophageal diaphragmatic hernia (01589). 3. Small bowel resection (19935). ANESTHESIA: General. PERSONAL LINES SALES REP: Rebeca Santiago PA-C INDICATIONS FOR PROCEDURE: This is a 50-year-old female, presenting with a large recurrent paraesophageal diaphragmatic hernia. This has been repaired twice previously. She presents now with ongoing quite extensive nausea and reflux and recent endoscopy showed a large recurrent paraesophageal hernia. Plan is to proceed with open exploratory laparotomy with either redo fundoplication or more likely a proximal gastrectomy or esophagogastrectomy with Caroline-en-Y reconstruction given the patient's history in regard to this problem. The potential risks of the procedure including bleeding, infection, leaks from various GI tract closures, possible recurrence of the problem over time, as well as possibility of cardiopulmonary, septic, or hemorrhagic complications leading to were discussed, and the patient wishes to proceed. DETAILS OF PROCEDURE: The patient was taken to the operating room, and after general endotracheal anesthesia was induced, a Perez catheter was inserted, and the abdomen prepped and draped. An upper midline incision from the xiphoid to just above the umbilicus was made and this was carried down through the full-thickness of abdominal wall. The lower portion of the incision required division of a portion of a previously placed intraperitoneal mesh. This was subsequently covered with meropenem and Zyvox containing soaked gauze, while there was any open GI tract, to try to limit infection risk regarding the mesh. This mesh was a polypropylene type mesh, so relatively resistant to infection compared to some other materials. After lysis of some adhesions, the patient was noted to have some extensive involvement of the gastric fundus and cardia into the recurrent hernia. As this was dissected free and the hernia reduced, it was quite evident that the proximal stomach would not be suitable for redo fundoplication or as an anastomotic site. Given this, the distal esophagus at that point was encircled and divided with OLY black load, and the proximal stomach and distal- most esophagus below that was then resected with series of OLY loads dividing both blood supply and other attachments of those structures, as well as the stomach somewhat more distally. Later, some additional stomach was resected to allow more adequate positioning of the Caroline limb, as there was probably quite a bit of distortion of the Caroline limb as it came into the esophagojejunostomy. The diaphragmatic hernia was then repaired with a layer of 0 Ethibond sutures reinforced with PTFE pledgets. This appeared to satisfactorily control the paraesophageal hernia. The Caroline limb was then constructed. The small bowel was traced out 150 cm distal to the ligament of Treitz, where it was divided and then traced out an additional 150 cml. Some of the more proximal small bowel did need to be resected, as it became fairly ischemic during the dissection process. This was done with OLY stapler at both the mesenteric and bowel sites. A [id number] enteroenterostomy was then accomplished with internal firing of the Endo-OLY 60 mm stapler, common opening was closed transversely with the same stapler, and angles of anastomosis and mesenteric defect were approximated with some 3-0 Vicryl stitch. An opening in the avascular portion of the transverse mesocolon was constructed bluntly, and the Caroline limb was then able to come up to the divided esophagus without tension. An anvil of a 25 mm EEA stapler was attached to Roberta sump type tube, and the latter was brought down through the mouth and taken out of the small opening in the divided esophagus, allowing the anvil likewise to be pulled down to within the esophagus. Small opening was then made in the end of the Caroline limb and main body of the EEA stapler passed several centimeters into the lumen of small bowel, brought up the anvil and united with it, thus creating the esophagojejunostomy. Upon removal of the stapler, double donuts of mucosa were noted within it. The proximal donut was then confirmed to be esophageal in appearance in terms of the texture and color of the mucosa. At this point, no further problems were noted. The point where the small bowel passed through the transverse colon was reinforced with some 3-0 Vicryl stitch, and the esophagojejunostomy was reinforced with some seromuscular 3-0 Vicryl stitch, along with fibrin sealant. Two Lucas-Chang drains were then placed through stab wounds in the left subcostal area and positioned adjacent to the esophagojejunostomy. At this point, the abdomen had been irrigated once again with antibiotic- containing saline solution. New gloves and gowns and all new instruments were used, after which the gauze covering the mesh was removed. The mesh was then closed off with a running 0 Prolene stitch. Over this, the main fascial closure was accomplished with #2 Vicryl stitch and the subcutaneous tissue with 4-0 Vicryl stitch and the skin with aida. Dressing was applied. The patient was taken to the recovery room in satisfactory condition. There were no evident complications. Physician virtual assistant for advertisers, Rebeca Santiago, played an essential role in assisting in this case, helping to position the patient, retract structures as needed, as well as suturing and cutting sutures when indicated. Her presence improved the patient's safety and decreased operative time. Martir Bang MD /[id number]
--- NOTE | 2020-08-26 13:31 | PN ---
DATE OF SERVICE: 08/22/2020 The patient has been afebrile with stable vital signs. Urine output has been satisfactory although a little bit high. Creatinine did bump up to 2.0 from 1.2 yesterday, so we will give her some additional IV fluids today. I think we will leave the Cefoxitin going, probably get that off tomorrow. Otherwise, GI actually looks stable and will move up to a step-2 diet with no solids. Her magnesium is somewhat low level, will be supplemented. Otherwise, maximize activity and work with pulmonary toilet. We will leave the Perez catheter in for today, given the bump in the creatinine and need to monitor urine output. Martir Bang MD /[id number]
== END 2020-08-24 09:50 | disposition home or self-care (01) | DRG 326 ==
LOC: EEVIPCON 08:40 → JP.SDS 08:40 → JP.SDSSCHI 08:40 → JP.2SS 13:05 → EDSTATUS 14:15 → JP.MS 08-22 13:39
PROVIDERS: ADMIT Surgery; ATTEND Surgery
PROC: 0BQT0ZZ Repair Diaphragm, Open Approach (ICD-10-PCS; principal; 2020-08-21)
PROC: 0DB30ZZ Excision of Lower Esophagus, Open Approach (ICD-10-PCS; 2020-08-21)
PROC: 0DB60ZZ Excision of Stomach, Open Approach (ICD-10-PCS; 2020-08-21)
PROC: 0D160ZA Bypass Stomach to Jejunum, Open Approach (ICD-10-PCS; 2020-08-21)
DX: K44.9 Diaphragmatic hernia without obstruction or gangrene (principal); K55.029 Acute infarction of small intestine, extent unspecified; K55.9 Vascular disorder of intestine, unspecified; D50.9 Iron deficiency anemia, unspecified; F41.9 Anxiety disorder, unspecified; F31.9 Bipolar disorder, unspecified; K59.09 Other constipation; K52.9 Noninfective gastroenteritis and colitis, unspecified; J44.9 Chronic obstructive pulmonary disease, unspecified; M79.7 Fibromyalgia; K21.9 Gastro-esophageal reflux disease without esophagitis; E78.00 Pure hypercholesterolemia, unspecified; G43.909 Migraine, unspecified, not intractable, without status migrainosus; H35.30 Unspecified macular degeneration; G47.30 Sleep apnea, unspecified; F17.210 Nicotine dependence, cigarettes, uncomplicated
CPT/HCPCS: 36415; 74240; 74240-26; 80053; 83735; 83880; 84100; 85025; 88307; 88342; 94640; 94762; A9270-GY; C9113; J0171; J0330; J0694; J1100; J1170; J2020; J2185; J2405; J2704; J2710; J2795; J2916; J3010; J3411; J3420; J3475; J3490; J7050; J7120; J7121; J7620-GY; Q9967

== ENCOUNTER 2020-10-02 11:37 | Day surgery (SDC) | payer MEDICARE, MEDICAID ==
[~2020-10-02 11:37] MED LIST changes: -Dexamethasone 4 MG/ML SDV ONE; -Glycopyrrolate 0.2 MG/ML 5 ML MDV ONE; -Meropenem 500 MG SDV ONE; -Neostigmine Methylsulfate 1 MG/ML 5 ML Syringe ONE; -Ondansetron 4 MG/2 ML SDV ONE; -Propofol 200 MG/20 ML SDV ONE; -Rocuronium 50 MG/5 ML Vial ONE; +Sodium Chloride 0.9% 1,000 ML IV SCH; -Succinylcholine 200 MG/10 ML MDV ONE; -fentaNYL 250 MCG/5 ML SDV ONE
[2020-10-02] MEDS ORDERED: Lactated Ringers 1,000 ML IV ONE (11:45)
[2020-10-02] MEDS ORDERED: Cyanocobalamin (Vitamin B12) 1,000 MCG/ML SDV IM ONE (12:00)
[2020-10-02] MEDS ORDERED: Glycopyrrolate 0.2 MG/ML 2 ML SDV IVPUSH ONE (12:15)
[2020-10-02] MEDS ORDERED: Propofol 200 MG/20 ML SDV ONE (12:41)
[2020-10-02] MEDS ORDERED: Midazolam 1 MG/ML 2 ML SDV ONE (12:42)
[2020-10-02] MEDS ORDERED: fentaNYL 100 MCG/2 ML SDV ONE (12:42)
[2020-10-02] MEDS ORDERED: MVI, Adult with Vitamin K 10 ML, Thiamine 200 MG, Chromium/Copper/Mang/Selen/Zn 1 ML in... IV ONE ×4 (12:45)
[2020-10-02 14:45] VITALS: BP 138/85; PULSE 69
--- NOTE | 2020-10-05 07:41 | OR ---
DATE OF PROCEDURE: 10/02/2020 SURGEON: Kirit Frances MD PROCEDURE: Esophagogastroduodenoscopy with dilation balloon used 35-Turkish, number of dilations 1, percentage narrowed 70%. COMPLICATIONS: None. AIRCRAFT LAUNCH AND RECOVERY TECHNICIAN: None. ANESTHESIA: MAC. PREOPERATIVE DIAGNOSES: Dysphagia after Caroline-en-Y. POSTOPERATIVE DIAGNOSES: Dysphagia after Caroline-en-Y. RISKS: Risks, benefits, alternatives, and limitations including but not limited to infection, bleeding, and perforation were explained to the patient who wished to proceed. PROCEDURE IN DETAIL: The patient was placed in left lateral decubitus position. The EGD scope was introduced and advanced atraumatically to the gastrojejunal anastomosis. This was noted to be narrowed as described above. The balloon was able to be transversed across the narrowing. This was under direct visualization. This was then dilated, and the scope was easily able to be passed through the anastomosis. The remnant pouch and the small bowel were noted to be viable and healthy without evidence of ulceration, bleeding, or abnormality. No evidence of enterotomy or injury. The patient tolerated the procedure well. Kirit Frances MD /[id number]
== END 2020-10-02 15:23 | disposition home or self-care (01) ==
LOC: JP.SDS 11:37
PROVIDERS: ATTEND Surgery
DX: K91.89 Other postprocedural complications and disorders of digestive system (principal); R13.19 Other dysphagia; F17.200 Nicotine dependence, unspecified, uncomplicated; J45.909 Unspecified asthma, uncomplicated; Z01.812 Encounter for preprocedural laboratory examination; Z20.828 Contact with and (suspected) exposure to other viral communicable diseases
CPT/HCPCS: 43249; J2250; J2704; J3010; J3411; J3420; J7120; U0002

== ENCOUNTER 2020-10-16 06:55 | Day surgery (SDC) | payer MEDICARE, MEDICAID ==
[~2020-10-16 06:55] MED LIST changes: +Lidocaine 2% 5 ML SDV ONE; +Propofol 200 MG/20 ML SDV ONE; -Sodium Chloride 0.9% 1,000 ML IV SCH
[2020-10-16] MEDS ORDERED: Lactated Ringers 1,000 ML IV SCH (07:30)
[2020-10-16] MEDS ORDERED: Glycopyrrolate 0.2 MG/ML 2 ML SDV IVPUSH ONE (08:15)
[2020-10-16] MEDS ORDERED: Cyanocobalamin (Vitamin B12) 1,000 MCG/ML SDV IM ONE (08:30)
[2020-10-16] MEDS ORDERED: MVI, Adult with Vitamin K 10 ML, Thiamine 200 MG, Chromium/Copper/Mang/Selen/Zn 1 ML in... IV ONE ×4 (09:30)
[2020-10-16 10:55] VITALS: BP 106/68; PULSE 75
--- NOTE | 2020-10-26 07:08 | OR ---
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 OPERATIVE PROCEDURE: Upper gastrointestinal endoscopy with dilation of esophagojejunostomy (34799). ANESTHESIA: IV sedation. INDICATIONS FOR PROCEDURE: The patient is status post a previous esophagogastrectomy and presents now with symptoms suggestive of stricturing at esophagojejunostomy. Plan is to proceed with an upper GI endoscopy with dilation as indicated. Potential risks including bleeding and perforation were discussed, and the patient wishes to proceed. DETAILS OF PROCEDURE: The patient was taken to the operating room, placed in a left lateral decubitus position. IV sedation was administered, after which the upper GI endoscope was passed orally through the length of the esophagus and into the level of the esophagojejunostomy. There was moderate stricture at this point and no retained food or fluid was noted. A Bard gastrointestinal catheter was centered across the anastomosis and inflated to 36-Greenlandic level 3. This was held in position for 1 minute, after which the balloon catheter was deflated and withdrawn. Scope was easily passed through the anastomosis. No complications noted, and procedure concluded. The patient was taken to the recovery room in satisfactory condition. Martir Bang MD /[id number]
== END 2020-10-16 11:45 | disposition home or self-care (01) ==
LOC: JP.SDS 06:55
PROVIDERS: ATTEND Surgery
DX: K91.89 Other postprocedural complications and disorders of digestive system (principal); K22.2 Esophageal obstruction; G47.33 Obstructive sleep apnea (adult) (pediatric); J45.909 Unspecified asthma, uncomplicated; E78.5 Hyperlipidemia, unspecified; F17.200 Nicotine dependence, unspecified, uncomplicated; Z79.899 Other long term (current) drug therapy; Z88.2 Allergy status to sulfonamides; Z88.8 Allergy status to other drugs, medicaments and biological substances; Z91.040 Latex allergy status; Z01.812 Encounter for preprocedural laboratory examination; Z20.828 Contact with and (suspected) exposure to other viral communicable diseases
CPT/HCPCS: 43249; J2001; J2704; J3411; J3420; J3490; J7120; U0002

== ENCOUNTER → 2020-11-24 | Day surgery (SDC) | payer MEDICARE, MEDICAID ==
[~2020-11-24] MED LIST changes: +Cyanocobalamin (Vitamin B12) 1,000 MCG/ML SDV IM ONE; +Lactated Ringers 1,000 ML IV ONE; -Lidocaine 2% 5 ML SDV ONE; +MVI, Adult with Vitamin K 10 ML, Thiamine 200 MG, Zinc/Copper/Manganese/Selenium 1 ML i... IV ONE; +Midazolam 1 MG/ML 2 ML SDV ONE; +fentaNYL 100 MCG/2 ML SDV ONE
[2020-11-24 13:01] VITALS: BP 106/61; PULSE 61
--- NOTE | 2020-12-09 20:10 | OR ---
DATE OF PROCEDURE: 11/24/2020 SURGEON: Martir Bang MD PREOPERATIVE DIAGNOSIS: Possible stricture at esophagojejunostomy. 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 OPERATIVE PROCEDURE: Upper gastrointestinal endoscopy with dilation of esophagojejunostomy (24396). ANESTHESIA: IV sedation. INDICATION FOR PROCEDURE: The patient is status post esophagogastrectomy on 08/21/2020 and has had problems with recurrent stricturing of the esophagojejunal anastomosis, the last dilation was on 10/16. Plan is to proceed with an upper GI endoscopy with dilation as indicated. Potential risks including bleeding and perforation were discussed and the patient wishes to proceed. DETAILS OF PROCEDURE: The patient was taken to the operating room and placed in a left lateral decubitus position. IV sedation was administered after which the upper GI endoscope was passed orally through the length of the esophagus and to the level of the esophagojejunostomy. There was a moderate stricture present with the scope not quite being able to be passed through that anastomosis. A Bard gastrointestinal catheter was then centered across the anastomosis, inflated to 36-Japanese size and held there for one minute. Balloon catheter was deflated and withdrawn. Scope could easily then be passed through the anastomosis. No complications were noted and the scope was withdrawn. The patient was taken to the recovery room in satisfactory condition. Martir Bang MD /[id number]
== END ==
LOC: JP.SDS 08:57
PROVIDERS: ATTEND Surgery
DX: K91.89 Other postprocedural complications and disorders of digestive system (principal); K22.2 Esophageal obstruction; G47.33 Obstructive sleep apnea (adult) (pediatric); J45.909 Unspecified asthma, uncomplicated; F17.200 Nicotine dependence, unspecified, uncomplicated; Z01.812 Encounter for preprocedural laboratory examination; Z20.828 Contact with and (suspected) exposure to other viral communicable diseases
CPT/HCPCS: 43249; J2250; J2704; J3010; J3411; J3420; J7120; U0002

== ENCOUNTER 2021-01-14 08:41 | Day surgery (SDC) | payer MEDICARE, MEDICAID ==
[~2021-01-14 08:41] MED LIST changes: -Cyanocobalamin (Vitamin B12) 1,000 MCG/ML SDV IM ONE; -Lactated Ringers 1,000 ML IV ONE; -MVI, Adult with Vitamin K 10 ML, Thiamine 200 MG, Zinc/Copper/Manganese/Selenium 1 ML i... IV ONE
[2021-01-14] MEDS ORDERED: Lactated Ringers 1,000 ML IV SCH (09:45)
[2021-01-14] MEDS ORDERED: Glycopyrrolate 0.2 MG/ML 2 ML SDV IVPUSH ONE (10:00)
[2021-01-14] MEDS ORDERED: Cyanocobalamin (Vitamin B12) 1,000 MCG/ML SDV IM ONE (10:00)
[2021-01-14] MEDS ORDERED: MVI, Adult with Vitamin K 10 ML, Thiamine 200 MG, Zinc/Copper/Manganese/Selenium 1 ML i... IV ONE ×4 (10:30)
[2021-01-14 13:17] VITALS: BP 91/60; PULSE 55
--- NOTE | 2021-01-17 16:14 | OR ---
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 OPERATIVE PROCEDURE: Upper gastrointestinal endoscopy with dilation of esophagojejunostomy (99122). ANESTHESIA: IV sedation. INDICATIONS FOR PROCEDURE: The patient is status post an esophagogastrectomy on 08/16 and presents now with some symptoms suggestive of stricturing at her esophagojejunostomy. Plan is to proceed with upper GI endoscopy with dilation as indicated. Potential risks including bleeding and perforation were discussed, and the patient wishes to proceed. DETAILS OF PROCEDURE: The patient was taken to the operating room and placed in a left lateral decubitus position. IV sedation was administered after which the upper GI endoscope was passed orally through the length of the esophagus and into the area of the esophagojejunostomy. The scope could quite not be passed through the anastomosis indicating a narrowing of around 9 mm. A Bard gastrointestinal catheter was centered across the anastomosis and inflated to 36-Slovak level 1 and held in position for 1 minute. The balloon catheter was deflated and withdrawn. The scope could easily be passed through the anastomosis. No complications were noted, and the procedure was concluded. The patient was taken to the recovery room in satisfactory condition. Martir Bang MD /[id number]
== END 2021-01-14 13:19 | disposition home or self-care (01) ==
LOC: JP.SDS 08:41
PROVIDERS: ATTEND Surgery
DX: K91.89 Other postprocedural complications and disorders of digestive system (principal); K22.2 Esophageal obstruction; E78.5 Hyperlipidemia, unspecified; J45.909 Unspecified asthma, uncomplicated; F17.200 Nicotine dependence, unspecified, uncomplicated; G47.33 Obstructive sleep apnea (adult) (pediatric); M79.7 Fibromyalgia; Z87.19 Personal history of other diseases of the digestive system
CPT/HCPCS: 43249; J2250; J2704; J3010; J3411; J3420; J3490; J7120

== ENCOUNTER 2021-02-26 08:36 | Day surgery (SDC) | payer MEDICARE, MEDICAID ==
[2021-02-26] MEDS ORDERED: Glycopyrrolate 0.2 MG/ML 2 ML SDV IVPUSH ONE (09:00)
[2021-02-26] MEDS ORDERED: Dextrose 5%-Lactated Ringers 1,000 ML IV SCH (09:00)
[2021-02-26] MEDS ORDERED: Midazolam 1 MG/ML 2 ML SDV ONE (09:13)
[2021-02-26] MEDS ORDERED: Propofol 200 MG/20 ML SDV ONE (09:13)
[2021-02-26] MEDS ORDERED: fentaNYL 100 MCG/2 ML SDV ONE (09:13)
[2021-02-26] MEDS ORDERED: MVI, Adult with Vitamin K 10 ML, Zinc/Copper/Manganese/Selenium 1 ML, Thiamine 200 MG i... IV ONE ×4 (10:00)
[2021-02-26 11:16] VITALS: PULSE 60
[2021-02-26 11:44] VITALS: BP 100/57
--- NOTE | 2021-03-08 15:38 | OR ---
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 POSTOPERATIVE DIAGNOSIS: Mild stricture at esophagojejunostomy. OPERATIVE PROCEDURE: Upper gastrointestinal endoscopy with dilation of esophagojejunostomy (39226). ANESTHESIA: IV sedation. INDICATION FOR PROCEDURE: The patient presents with some symptoms suggestive of stricturing at her esophagojejunostomy. Plan is to proceed with upper GI endoscopy with dilation as indicated. Potential risks including bleeding and perforation were discussed, and the patient wishes to proceed. DETAILS OF PROCEDURE: The patient was taken to the operating room and placed in a left lateral decubitus position. IV sedation was administered after which the upper GI endoscope was passed orally through the length of the esophagus and through the esophagojejunostomy and roughly 20 cm into the Caroline limb. There was only a mild stricture at this point with the gastroscope being able to be passed through the anastomosis. Otherwise, there was no significant mucosal inflammation. A Bard gastrointestinal balloon catheter was centered across the esophagojejunostomy and inflated to 45-Mongolian level 2. This was held in position for 1 minute after which the balloon catheter was deflated and withdrawn. Good dilation was confirmed and the procedure then concluded. The patient continued to have some recent weight loss, and with this rare period, she had some ongoing depression which was interfering with her adequate oral intake. Based on the findings we saw today, she certainly should be able to be maintaining weight with the level of stricturing that she had preoperatively. This situation was discussed with the patient's sister who has been helpful with regard to managing her dietary needs and she will be picking her up from her apartment later today to spend time at the sister's home and work on nutritional intake. Otherwise, followup with Rebeca Santiago will be in 3 weeks. Martir Bang MD /[id number]
== END 2021-02-26 12:10 | disposition home or self-care (01) ==
LOC: JP.SDS 08:36
PROVIDERS: ATTEND Surgery
DX: K91.89 Other postprocedural complications and disorders of digestive system (principal); J45.909 Unspecified asthma, uncomplicated; F17.200 Nicotine dependence, unspecified, uncomplicated; Z98.0 Intestinal bypass and anastomosis status; Z91.040 Latex allergy status; Z88.2 Allergy status to sulfonamides; Z88.8 Allergy status to other drugs, medicaments and biological substances
CPT/HCPCS: 43249; J2250; J2704; J3010; J3411; J3490; J7121

== ENCOUNTER 2021-09-03 18:15 | Emergency (ER) | payer MEDICARE, MEDICAID | END 2021-09-03 19:54 | disposition home or self-care (01) | LOC: JP.ED 18:15 | DX: Z53.21 Procedure and treatment not carried out due to patient leaving prior to being seen by health care provider (principal) ==

== ENCOUNTER 2022-03-15 06:33 | Day surgery (SDC) | payer MEDICARE, MEDICAID ==
[2022-03-15] MEDS ORDERED: Sodium Chloride 0.9% 1,000 ML IV SCH (07:00)
[2022-03-15] MEDS ORDERED: fentaNYL 100 MCG/2 ML SDV ONE (07:21)
[2022-03-15] MEDS ORDERED: Propofol 200 MG/20 ML SDV ONE (07:21)
[2022-03-15 09:54] VITALS: BP 115/65; PULSE 73
== END 2022-03-15 10:10 | disposition home or self-care (01) ==
LOC: JP.SDS 06:33
PROVIDERS: ATTEND Surgery
DX: R13.10 Dysphagia, unspecified (principal); F17.200 Nicotine dependence, unspecified, uncomplicated; Z98.84 Bariatric surgery status
CPT/HCPCS: J2704; J3010; J7030

== ENCOUNTER 2022-09-10 15:01 | Emergency (ER) | payer MEDICARE, MEDICAID ==
[2022-09-10] MEDS ORDERED: Sodium Chloride 0.9% 10 ML Syringe FLUSH PRN (15:54)
[2022-09-10] MEDS ORDERED: HYDROmorphone 0.5 MG/0.5 ML Syringe IVPUSH ONE (15:58)
[2022-09-10] MEDS ORDERED: Ondansetron 4 MG/2 ML SDV IVPUSH ONE (15:58)
[2022-09-10 16:36] LABS: ESTIMATED GFR 76 mL/min (>60)
[2022-09-10] MEDS ORDERED: Sodium Chloride 0.9% 100 ML IV ONE (17:35)
[2022-09-10] MEDS ORDERED: Iopamidol 755 Mg/ML 100 ML Bottle IV ONE (17:35)
[2022-09-10] MEDS ORDERED: Iopamidol 612 MG/ML 100 ML Bottle IV ONE (17:37)
[2022-09-10] MEDS ORDERED: Sodium Chloride 0.9% 1,000 ML IV ONE (17:57)
[2022-09-10 18:55] VITALS: PULSE 65
[2022-09-10 20:20] VITALS: BP 114/62
== END 2022-09-10 20:36 ==
LOC: JP.ED 15:01
DX: K80.50 Calculus of bile duct without cholangitis or cholecystitis without obstruction (principal); E78.00 Pure hypercholesterolemia, unspecified; J44.9 Chronic obstructive pulmonary disease, unspecified; K21.9 Gastro-esophageal reflux disease without esophagitis; Z79.899 Other long term (current) drug therapy; Z88.8 Allergy status to other drugs, medicaments and biological substances; Z88.2 Allergy status to sulfonamides; Z20.822 Contact with and (suspected) exposure to COVID-19
CPT/HCPCS: 36415; 74177; 80053; 81001; 83690; 85025; 86140; 96361; 96374; 96375; 99285; J1170; J2405; J3490; J7030; Q9967; U0002

== ENCOUNTER 2023-06-30 07:59 | Day surgery (SDC) | payer MEDICARE, MEDICAID ==
[2023-06-30] MEDS ORDERED: Sodium Chloride 0.9% 1,000 ML IV SCH (09:00)
[2023-06-30 11:14] VITALS: BP 116/76; PULSE 68
== END 2023-06-30 11:20 | disposition home or self-care (01) ==
LOC: JP.SDS 07:59
PROVIDERS: ATTEND Surgery
DX: D13.0 Benign neoplasm of esophagus (principal); K21.9 Gastro-esophageal reflux disease without esophagitis; J45.909 Unspecified asthma, uncomplicated; E78.5 Hyperlipidemia, unspecified; F43.10 Post-traumatic stress disorder, unspecified; F31.9 Bipolar disorder, unspecified; Z98.84 Bariatric surgery status
CPT/HCPCS: 43239; 88305; J2250; J2704; J3010; J7030

== ENCOUNTER 2024-02-29 23:57 | Emergency (ER) | payer MEDICARE, MEDICAID ==
[2024-03-01 00:32] LABS: BASOPHILS PERCENT AUTO 1.1 % (0.1-1.3); EOSINOPHILS ABSOLUTE AUTO 0.18 K/uL (0.00-0.40); HEMATOCRIT 34.9 % (34.3-46.0); HEMOGLOBIN 11.4 g/dL (11.2-15.5); IMMATURE GRAN PERCENT AUTO 0.2 % (0.0-0.7); LYMPHOCYTES ABSOLUTE AUTO 2.33 K/uL (0.8-3.3); LYMPHOCYTES PERCENT AUTO 26.3 % (11.4-47.7); MEAN CORPUSCULAR HEMOGLOBIN 31.1 pg (31.6-35.5); MEAN CORPUSCULAR HGB CONC 32.7 g/dL (31.6-35.5); MEAN CORPUSCULAR VOLUME 95.4 fL (81.4-99.0); MONOCYTES PERCENT AUTO 7.9 % (3.3-12.6); NEUTROPHILS ABSOLUTE AUTO 5.52 K/uL (1.0-7.6); NEUTROPHILS PERCENT AUTO 62.5 % (40.0-78.1); PLATELET COUNT,PLT 167 K/uL (130-375); RED BLOOD CELL COUNT 3.66 M/uL (3.77-5.24); WHITE BLOOD CELL COUNT,WBC 8.9 K/uL (3.2-11.0)
[2024-03-01 00:37] LABS: IMMATURE GRAN ABSOLUTE AUTO 0.02 K/uL (0.00-0.23)
[2024-03-01] MEDS: Sodium Chloride 0.9% 1,000 ML IV SCH (00:37)
[2024-03-01 01:06] LABS: ALANINE AMINOTRANSFERASE,ALT 30 U/L (12-78); ALBUMIN 3.3 g/dL (3.4-5.0); ALKALINE PHOSPHATASE 69 U/L (46-116); ANION GAP 7.5 mmol/L (5.0-14.0); ASPARTATE AMNIOTRANSFERASE,AST 26 U/L (15-37); BILIRUBIN TOTAL 0.2 mg/dL (0.2-1.0); BLOOD UREA NITROGEN,BUN 15 mg/dL (7-18); CALCIUM 8.4 mg/dL (8.5-10.1); CARBON DIOXIDE,CO2 30 mmol/L (21-32); CHLORIDE,CL 106 mmol/L (100-108); CREATININE 0.9 mg/dL (0.6-1.0); EST CRCL DRUG DOSING (CG) 53.61 mL/min; ESTIMATED GFR 76 mL/min (>60); GLUCOSE RANDOM 119 mg/dL (74-106); POTASSIUM,K 3.6 mmol/L (3.6-5.2); PROTEIN TOTAL,TP 6.5 g/dL (6.4-8.2); SODIUM,NA 143 mmol/L (140-148)
[2024-03-01 02:00] LABS: APPEARANCE,URINE CLEAR (CLEAR); BILIRUBIN,URINE NEGATIVE (NEGATIVE); COLOR,URINE YELLOW (YELLOW); GLUCOSE,URINE NEGATIVE (NEGATIVE); KETONES,URINE NEGATIVE (NEGATIVE); LEUKOCYTE ESTERASE,URINE TRACE (NEGATIVE); NITRITE,URINE NEGATIVE (NEGATIVE); OCCULT BLOOD,URINE NEGATIVE (NEGATIVE); PH,URINE 5.5 (5.0-8.0); PROTEIN,URINE NEGATIVE (NEGATIVE); UROBILINOGEN,URINE 0.2 EU/dL (0.2-1.0)
[2024-03-01 02:24] LABS: AMORPHOUS SEDIMENT,URINE FEW; BACTERIA,URINE FEW; EPITHELIAL CELLS,URINE RARE; MUCUS,URINE NOT SEEN; RBC,URINE 0-5 (0-5); WBC,URINE 0-5 (0-5)
[2024-03-01] MEDS: Sodium Chloride 0.9% 80 ML IV STA (04:55)
[2024-03-01] MEDS: Iopamidol 612 MG/ML 100 ML Bottle IV STA (04:55)
[2024-03-01 06:03] VITALS: BP 108/69; PULSE 52
== END 2024-03-01 06:08 | disposition home or self-care (01) ==
LOC: JP.ED 23:57
DX: R10.32 Left lower quadrant pain (principal); I10 Essential (primary) hypertension; I25.10 Atherosclerotic heart disease of native coronary artery without angina pectoris; J44.9 Chronic obstructive pulmonary disease, unspecified; E78.00 Pure hypercholesterolemia, unspecified; E66.9 Obesity, unspecified; Z86.16 Personal history of COVID-19; Z90.49 Acquired absence of other specified parts of digestive tract; Z90.710 Acquired absence of both cervix and uterus; Z88.2 Allergy status to sulfonamides; Z91.040 Latex allergy status; Z88.8 Allergy status to other drugs, medicaments and biological substances; Z79.899 Other long term (current) drug therapy; Z68.1 Body mass index [BMI] 19.9 or less, adult
CPT/HCPCS: 36415; 74177; 80053; 81001; 83690; 85025; 86140; 96360; 99283; 99285; J3490; J7030; Q9967

== ENCOUNTER 2024-05-13 16:56 | Emergency (ER) | payer MEDICARE, MEDICAID ==
[2024-05-13 17:08] VITALS: BP 124/77; PULSE 60
== END 2024-05-13 17:30 | disposition home or self-care (01) ==
LOC: JP.ED 16:56
DX: R09.A2 Foreign body sensation, throat (principal); I10 Essential (primary) hypertension; J44.9 Chronic obstructive pulmonary disease, unspecified; K21.9 Gastro-esophageal reflux disease without esophagitis; E66.9 Obesity, unspecified; F17.210 Nicotine dependence, cigarettes, uncomplicated; Z90.49 Acquired absence of other specified parts of digestive tract; Z90.710 Acquired absence of both cervix and uterus; Z86.16 Personal history of COVID-19; Z79.51 Long term (current) use of inhaled steroids; Z79.899 Other long term (current) drug therapy; Z88.2 Allergy status to sulfonamides; Z91.040 Latex allergy status; Z88.8 Allergy status to other drugs, medicaments and biological substances; Z68.1 Body mass index [BMI] 19.9 or less, adult
CPT/HCPCS: 99283

== ENCOUNTER 2024-08-09 19:38 | Emergency (ER) | payer MEDICARE, MEDICAID ==
[2024-08-09 19:48] VITALS: PULSE 78
[2024-08-09 20:38] LABS: BASOPHILS ABSOLUTE AUTO 0.09 K/uL (0.00-0.10); BASOPHILS PERCENT AUTO 0.4 % (0.1-1.3); EOSINOPHILS ABSOLUTE AUTO 0.07 K/uL (0.00-0.40); EOSINOPHILS PERCENT AUTO 0.3 % (0.0-5.4); HEMATOCRIT 35.9 % (34.3-46.0); IMMATURE GRAN ABSOLUTE AUTO 0.59 K/uL (0.00-0.23); IMMATURE GRAN PERCENT AUTO 2.7 % (0.0-0.7); LYMPHOCYTES ABSOLUTE AUTO 1.75 K/uL (0.8-3.3); LYMPHOCYTES PERCENT AUTO 8.1 % (11.4-47.7); MEAN CORPUSCULAR HEMOGLOBIN 31.6 pg (31.6-35.5); MEAN CORPUSCULAR HGB CONC 33.4 g/dL (31.6-35.5); MEAN CORPUSCULAR VOLUME 94.5 fL (81.4-99.0); NEUTROPHILS ABSOLUTE AUTO 17.71 K/uL (1.0-7.6); NEUTROPHILS PERCENT AUTO 82.5 % (40.0-78.1); PLATELET COUNT,PLT 210 K/uL (130-375); WHITE BLOOD CELL COUNT,WBC 21.5 K/uL (3.2-11.0)
[2024-08-09] MEDS: Ketorolac 15 MG/ML SDV IM ONE (20:57)
[2024-08-09 21:04] LABS: A/G RATIO 1.2 (1.2-2.2); ALANINE AMINOTRANSFERASE,ALT 45 U/L (12-78); ALBUMIN 3.8 g/dL (3.4-5.0); ALKALINE PHOSPHATASE 68 U/L (46-116); ASPARTATE AMNIOTRANSFERASE,AST 42 U/L (15-37); BILIRUBIN TOTAL 0.3 mg/dL (0.2-1.0); BLOOD UREA NITROGEN,BUN 11 mg/dL (7-18); CALCIUM 8.6 mg/dL (8.5-10.1); CARBON DIOXIDE,CO2 29 mmol/L (21-32); CHLORIDE,CL 107 mmol/L (100-108); EST CRCL DRUG DOSING (CG) 47.68 mL/min; ESTIMATED GFR 66 mL/min (>60); GLUCOSE RANDOM 80 mg/dL (74-106); POTASSIUM,K 3.9 mmol/L (3.6-5.2); PROTEIN TOTAL,TP 6.9 g/dL (6.4-8.2); SODIUM,NA 142 mmol/L (140-148)
[2024-08-09 21:18] LABS: CORONAVIRUS COVID-19 NAA NEGATIVE (NEGATIVE); INFLUENZA A NAA NEGATIVE (NEGATIVE); INFLUENZA B NAA NEGATIVE (NEGATIVE); RESPIRATORY SYNCYTIAL VIR NAA NEGATIVE (NEGATIVE)
[2024-08-09 21:59] LABS: APPEARANCE,URINE CLEAR (CLEAR); BILIRUBIN,URINE NEGATIVE (NEGATIVE); COLOR,URINE YELLOW (YELLOW); GLUCOSE,URINE NEGATIVE (NEGATIVE); KETONES,URINE NEGATIVE (NEGATIVE); LEUKOCYTE ESTERASE,URINE NEGATIVE (NEGATIVE); NITRITE,URINE NEGATIVE (NEGATIVE); OCCULT BLOOD,URINE MODERATE (NEGATIVE); PH,URINE 5.5 (5.0-8.0); PROTEIN,URINE 100 mg/dL (NEGATIVE); UROBILINOGEN,URINE 0.2 EU/dL (0.2-1.0)
[2024-08-09 22:06] LABS: AMORPHOUS SEDIMENT,URINE NOT SEEN; BACTERIA,URINE RARE; EPITHELIAL CELLS,URINE FEW; MUCUS,URINE FEW; WBC,URINE 0-5 (0-5)
[2024-08-10 00:08] VITALS: BP 100/55
[2024-08-10] MEDS: Ketorolac 10 MG Tab PO ONE (00:08)
== END 2024-08-10 00:18 | disposition home or self-care (01) ==
LOC: JP.ED 19:38
DX: M54.50 Low back pain, unspecified (principal); M54.6 Pain in thoracic spine; R06.02 Shortness of breath; I25.10 Atherosclerotic heart disease of native coronary artery without angina pectoris; E78.00 Pure hypercholesterolemia, unspecified; I10 Essential (primary) hypertension; J44.9 Chronic obstructive pulmonary disease, unspecified; Z86.16 Personal history of COVID-19; Z79.899 Other long term (current) drug therapy; Z88.2 Allergy status to sulfonamides; Z91.040 Latex allergy status
CPT/HCPCS: 0241U; 36415; 71046; 74176; 80053; 81001; 82947; 83605; 84145; 85025; 86140; 96372; 99285; A9270; J1885

== ENCOUNTER 2024-08-30 19:12 | Emergency (ER) | payer MEDICARE, MEDICAID ==
[2024-08-30 19:26] VITALS: BP 106/61; PULSE 83
[2024-08-30] MEDS: Doxycycline 100 MG Cap PO ONE (20:55)
== END 2024-08-30 20:34 | disposition home or self-care (01) ==
LOC: JP.ED 19:12
DX: J18.9 Pneumonia, unspecified organism (principal); I10 Essential (primary) hypertension; K21.9 Gastro-esophageal reflux disease without esophagitis; E78.00 Pure hypercholesterolemia, unspecified; E66.9 Obesity, unspecified; F17.210 Nicotine dependence, cigarettes, uncomplicated; Z88.2 Allergy status to sulfonamides; Z88.8 Allergy status to other drugs, medicaments and biological substances; Z91.040 Latex allergy status; Z79.899 Other long term (current) drug therapy; Z90.49 Acquired absence of other specified parts of digestive tract; Z90.710 Acquired absence of both cervix and uterus; Z68.1 Body mass index [BMI] 19.9 or less, adult
CPT/HCPCS: 99284; A9270